=== PATIENT | female | born 1935 | race Caucasian/White ===

== ENCOUNTER 2016-08-04 16:57 | Inpatient (IN) | payer MEDICARE ==
[~2016-08-04] VITALS: Ht 162.6 cm; Wt 107.5 kg
[~2016-08-04 16:57] MED LIST: CYCL5TAB PO; NF-ESOM40C PO; OMEP20CA12 PO; ONDAN4ODT SL; PRED20TA PO; SULF1TAB38 PO; omeprazole
--- NOTE | 2016-08-04 17:11 | ED Lower Extremity ---
General Stated Complaint: FALL Source: patient, EMS History of Present Illness Time seen by provider: 17:10 Initial Comments To ER per EMS from [employer] [facility] with reports of a fall and right hip pain. No other injuries. She was unable to ambulate afterwards. Severe pain in the right hip. Fentanyl and Zofran given and round. Last meal was at 330 p.m. and was a [employer] hamburger. Onset: just prior to arrival Severity: moderate Pain/Injury Location: right hip Method of Injury: fell Modifying Factors: Worse With Movement Allergies and Home Medications Allergies Coded Allergies: Penicillins (Verified Allergy, Unknown, 08/06/12) codeine (Unverified Allergy, Unknown, 12/16/11) Home Medications Cyclobenzaprine Hcl 5 Mg Tablet, 1 EACH PO Q8HR PRN for SPASMS, #15 Ref 0 Prescribed by: NOEMY MAJOR on 09/22/14 0226 Omeprazole 20 Mg Capsule.dr, 1 CAP PO DAILY, #30 (Reported) Ondansetron Hcl 4 Mg Tab, 4 MG SL Q4H, #10 Prescribed by: BRAYAN RUVALCABA on 08/07/12 0034 Prednisone 20 Mg Tablet, 40 MG PO DAILY, #10 Prescribed by: NOEMY MAJOR on 09/22/14 0226 Sulfamethoxazole/Trimethoprim 1 Tab Tablet, 1 TAB PO BID, #14 (Reported) Constitutional: see HPI EENTM: see HPI Respiratory: no symptoms reported Cardiovascular: no symptoms reported Genitourinary: no symptoms reported Musculoskeletal: see HPI Skin: no symptoms reported Past Ncynfav-Zqeeqb-Gzbbkw Hx Immunizations Up To Date Tetanus Booster (TDap): Unknown Date of Pneumonia Vaccine: Jan 14, 2007 Surgeries HX Surgeries: Yes Surgeries: Orthopedic Respiratory Hx Respiratory Disorders: No Cardiovascular Hx Cardiac Disorders: Yes Cardiac Disorders: Hypertension Neurological Hx Neurological Disorders: Yes (History of head trauma) Reproductive System Hx Reproductive Disorders: No Sexually Transmitted Disease: No Genitourinary Hx Genitourinary Disorders: Yes (incontinence) Gastrointestinal Hx Gastrointestinal Disorders: Yes Gastrointestinal Disorders: Diverticulosis, Hiatal Hernia Musculoskeletal Hx Musculoskeletal Disorders: Yes (ARTHRITIS) Endocrine Hx Endocrine Disorders: No HEENT HX ENT Disorders: No Cancer Hx Cancer: No Psychosocial Hx Psychiatric Problems: No Blood Transfusions Hx Blood Disorders: No Adverse Reaction to a Blood Tr: No Family Medical History Significant Family History: No Pertinent Family Hx Physical Exam Vital Signs Vital Sign - Last 12Hours 08/04/16 17:00 Temp 98.9 Pulse 82 Resp 20 B/P (MAP) 137/67 Pulse Ox 98 O2 Delivery Room Air Capillary Refill : General Appearance: WD/WN, no apparent distress HEENT: PERRL/EOMI, normal ENT inspection Neck: non-tender, full range of motion Respiratory: no respiratory distress, no accessory muscle use Gastrointestinal: normal bowel sounds, non tender, soft Hips: right hip limited range of motion, right hip pain, right hip soft tissue tenderness Legs: bilateral leg non-tender, bilateral leg normal inspection, bilateral leg normal range of motion Knees: bilateral knee non-tender, bilateral knee normal inspection, bilateral knee normal range of motion Ankles: bilateral ankle non-tender, bilateral ankle normal inspection, bilateral ankle normal range of motion Feet: bilateral foot non-tender, bilateral foot normal inspection, bilateral foot normal range of motion Neurologic/Psychiatric: alert, normal mood/affect, oriented x 3 Skin: normal color, warm/dry Comments +2 posterior tibial pulse on the right Progress/Results/Core Measures Results/Orders Lab Results Laboratory Tests Test 08/04/16 17:00 Range/Units White Blood Count 8.6 4.3-11.0 10^3/uL Red Blood Count 4.05 L 4.35-5.85 10^6/uL Hemoglobin 12.1 11.5-16.0 G/DL Hematocrit 38 35-52 % Mean Corpuscular Volume 93 80-99 FL Mean Corpuscular Hemoglobin 30 25-34 PG Mean Corpuscular Hemoglobin Concent 32 32-36 G/DL Red Cell Distribution Width 13.3 10.0-14.5 % Platelet Count 210 130-400 10^3/uL Mean Platelet Volume 10.4 7.4-10.4 FL Neutrophils (%) (Auto) 55 42-75 % Lymphocytes (%) (Auto) 34 12-44 % Monocytes (%) (Auto) 8 0-12 % Eosinophils (%) (Auto) 3 0-10 % Basophils (%) (Auto) 0 0-10 % Neutrophils # (Auto) 4.7 1.8-7.8 X 10^3 Lymphocytes # (Auto) 2.9 1.0-4.0 X 10^3 Monocytes # (Auto) 0.7 0.0-1.0 X 10^3 Eosinophils # (Auto) 0.3 0.0-0.3 10^3/uL Basophils # (Auto) 0.0 0.0-0.1 10^3/uL Sodium Level 136 135-145 MMOL/L Potassium Level 4.1 3.6-5.0 MMOL/L Chloride Level 102 98-107 MMOL/L Carbon Dioxide Level 26 21-32 MMOL/L Anion Gap 8 5-14 MMOL/L Blood Urea Nitrogen 23 H 7-18 MG/DL Creatinine 1.11 0.60-1.30 MG/DL Estimat Glomerular Filtration Rate 48 BUN/Creatinine Ratio 21 Glucose Level 157 H 70-105 MG/DL Calcium Level 9.1 8.5-10.1 MG/DL Total Bilirubin 0.4 0.1-1.0 MG/DL Aspartate Amino Transf (AST/SGOT) 24 5-34 U/L Alanine Aminotransferase (ALT/SGPT) 20 0-55 U/L Alkaline Phosphatase 63 40-136 U/L Total Protein 6.7 6.4-8.2 G/DL Albumin 3.8 3.2-4.5 G/DL My Orders Orders - DRAKE KRAMER APRN Saline Lock/Iv-Start (08/04/16 17:07) Cbc With Automated Diff (08/04/16 17:07) Comprehensive Metabolic Panel (08/04/16 17:07) Ua Culture If Indicated (08/04/16 17:07) Chest 1 View, Ap/Pa Only (08/04/16 17:07) Hip, Right, 2 Views (08/04/16 17:07) Pelvis (08/04/16 17:07) Fentanyl Injection (Sublimaze Injection (08/04/16 17:15) Ondansetron Injection (Zofran Injectio (08/04/16 17:15) Rogers Cath Insertion (08/04/16 17:07) Diphenhydramine Injection (Benadryl Inje (08/04/16 17:45) Medications Given in ED Current Medications Medications Dose Ordered Sig/Cooper Route Start Time Stop Time Status Last Admin Dose Admin Diphenhydramine HCl 25 mg ONCE ONCE IVP 08/04/16 17:45 08/04/16 17:46 DC 08/04/16 17:38 25 MG Fentanyl Citrate 50 mcg ONCE ONCE IVP 08/04/16 17:15 08/04/16 17:16 DC 08/04/16 17:13 50 MCG Ondansetron HCl 4 mg ONCE ONCE IVP 08/04/16 17:15 08/04/16 17:16 DC 08/04/16 17:13 4 MG Vital Signs/I&O Vital Sign - Last 12Hours 08/04/16 17:00 Temp 98.9 Pulse 82 Resp 20 B/P (MAP) 137/67 Pulse Ox 98 O2 Delivery Room Air Departure Communication Time/Spoke to Admitting Phy: 17:[address] Smith who is on-call for orthopedics. We will admit to him , consult medicine. Tentative plan for intramedullary nailing tomorrow at 3 p.m. Time/Spoke to Consulting Physi: 17:53 Communication/Consulting Notify Dr. Dailey of consult. Impression Impression: Primary Impression: Intertrochanteric fracture of right hip Disposition: ADMITTED INPATIENT Condition: Stable Decision to Admit Reason: Admit from ER (General) Decision to Admit/Date: August 04, 2016 Time/Decision to Admit Time: 17:53 Departure-Patient Inst. Referrals: UNKNOWN (PCP/Family) Primary Care Physician DRAKE KRAMER APRN August 04, 2016 17:11
[2016-08-04 17:15] LABS: BASOPHILS % (AUTO) 0 % (0-10); EOSINOPHILS # (AUTO) 0.3 10^3/uL (0.0-0.3); EOSINOPHILS % (AUTO) 3 % (0-10); LYMPHOCYTES # (AUTO) 2.9 X 10^3 (1.0-4.0); LYMPHOCYTES % (AUTO) 34 % (12-44); MEAN CORPUSCULAR HEMOGLOBIN 30 PG (25-34); MEAN CORPUSCULAR HGB CONC 32 G/DL (32-36); MEAN CORPUSCULAR VOLUME 93 FL (80-99); MEAN PLATELET VOLUME 10.4 FL (7.4-10.4); MONOCYTES # (AUTO) 0.7 X 10^3 (0.0-1.0); MONOCYTES % (AUTO) 8 % (0-12); NEUTROPHILS # (AUTO) 4.7 X 10^3 (1.8-7.8); NEUTROPHILS % (AUTO) 55 % (42-75); PLATELET COUNT 210 10^3/uL (130-400); RED BLOOD COUNT 4.05 10^6/uL (4.35-5.85); RED CELL DISTRIBUTION WIDTH 13.3 % (10.0-14.5); WHITE BLOOD COUNT 8.6 10^3/uL (4.3-11.0)
[2016-08-04] MEDS ORDERED: ONDANSETRON 4 MG/2 ML (SDV) Z0FRAN IVP ONE (17:15)
[2016-08-04] MEDS ORDERED: fentaNYL INJECTION 100 MCG/2 ML AMP IVP ONE (17:15)
[2016-08-04 17:36] LABS: ALBUMIN 3.8 G/DL (3.2-4.5); BILIRUBIN,TOTAL 0.4 MG/DL (0.1-1.0); CALCIUM 9.1 MG/DL (8.5-10.1); CREATININE SERUM 1.11 MG/DL (0.60-1.30); POTASSIUM 4.1 MMOL/L (3.6-5.0); TOTAL PROTEIN 6.7 G/DL (6.4-8.2)
[2016-08-04] MEDS ORDERED: diphenhydrAMINE 50 MG/ML INJ (BENADRYL) IVP ONE (17:45)
--- NOTE | 2016-08-04 17:52 | Diagnostic Imaging Report ---
CLINICAL INDICATION: Patient states she tripped and fell and has right hip pain. EXAMINATION: Portable chest x-ray AP view. COMPARISONS: None. FINDINGS: Lungs/pleura: Lungs are clear. There is no pneumothorax. There is no pleural effusion. Mediastinum: Unremarkable. Pulmonary vasculature: Unremarkable. Heart: Unremarkable. Bones/extrathoracic soft tissue: There are moderately hypertrophic spurs throughout the visualized thoracic spine. There are hypertrophic spurs involving the glenohumeral joint and acromioclavicular joints bilaterally. IMPRESSION: There is no radiographic evidence of acute cardiopulmonary process. Dictated by: Dictated on workstation # [id number]
--- NOTE | 2016-08-04 17:56 | Diagnostic Imaging Report ---
CLINICAL INDICATION: Patient fell. Patient has right hip pain. EXAM: X-ray of the right hip, AP and cross-table lateral views. COMPARISON: X-ray of the pelvis dated 08/04/2016. FINDINGS: There is a nondisplaced intertrochanteric fracture of the proximal right femur. This fracture is seen on the comparison pelvis x-ray. There are moderately hypertrophic spurs involving the right acetabulum. There is enthesopathy of the right iliac crest and proximal right greater trochanter. Remainder of the right hip shows no other significant abnormality. IMPRESSION: 1: There is a nondisplaced intertrochanteric fracture of the proximal right femur. 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 Dictated by: Dictated on workstation # [id number]
--- NOTE | 2016-08-04 17:57 | Diagnostic Imaging Report ---
CLINICAL INDICATION: Patient states she tripped and fell. Patient has right hip pain. EXAM: X-ray of the pelvis, AP view. COMPARISON: None. FINDINGS: There is a nondisplaced intertrochanteric fracture of the proximal right femur. There is no other fracture or dislocation seen. There is moderately hypertrophic spurs involving both acetabulum and enthesopathy of both greater trochanters and iliac crests. There is spurring of the symphysis pubis region. There is hypertrophic spurring in the lower lumbar spine. IMPRESSION: 1: There is a nondisplaced intertrochanteric fracture of the proximal right femur. 2: There is degenerative disease of both hips, pelvis, and lower lumbar spine. Report given to Dr. Rosa at 5:56 p.m. 08/04/2016/ray Dictated by: Dictated on workstation # [id number]
[2016-08-04] MEDS ORDERED: PROCHLORPERAZINE 10 MG/2ML INJ (COMPAZINE) IV ONE (18:00)
[2016-08-04] MEDS ORDERED: HYDROmorphone (DILAUDID) 2 MG/ML VIAL IVP PRN (18:45)
[2016-08-04] MEDS ORDERED: fentaNYL PCA 300 MCG/30 ML VIAL IV PRN (20:00)
[2016-08-04] MEDS ORDERED: CATHETER FLUSH 10 ML SYR IV PRN (20:00)
[2016-08-04] MEDS ORDERED: METOCLOPRAMIDE INJ 10 MG/2 ML (REGLAN) IV PRN (20:00)
[2016-08-04] MEDS ORDERED: NALOXONE 0.4 MG/ML 1 ML (NARCAN) VIAL IV PRN (20:00)
[2016-08-04] MEDS ORDERED: diphenhydrAMINE 50 MG/ML INJ (BENADRYL) IV PRN (20:00)
[2016-08-04] MEDS: NS IV 1000 ML 1,000 ML IV SCH (20:04)
[2016-08-04] MEDS: ONDANSETRON 4 MG/2 ML (SDV) Z0FRAN IV PRN (20:45)
--- NOTE | 2016-08-04 21:03 | Diagnostic Imaging Report ---
Clinical indication: Patient with right hip fracture. Exam: X-ray of the right hip without IV contrast. Sagittal and coronal reformatted images were created. Comparison: None. Findings: There is a comminuted intertrochanteric fracture of the proximal right femur. There are smaller fracture fragments seen posteriorly and medially. There is no other fracture or dislocation seen on this exam. The right femoral acetabular joint space is intact. There is hypertrophic spurs of the right acetabular rim. There is enthesopathy of the right greater trochanter. There is spurring of the symphysis pubis region. The remainder of this exam shows no significant abnormality. Impression: 1: There is a predominantly nondisplaced, comminuted, intertrochanteric fracture of the proximal right femur. There is a small fracture fragment seen posteriorly and medially. The right femoral acetabular joint space is intact and not dislocated. 2: Degenerative disease of the right hip. Dictated by: Dictated on workstation # [id number]
[2016-08-05] VITALS: BP 114/55
[2016-08-05 03:10] VITALS: BP 123/58
[2016-08-05] MEDS: NS IV 1000 ML 1,000 ML IV SCH ×3 (06:07→23:00)
[2016-08-05 08:11] VITALS: BP 113/56
[2016-08-05] MEDS: SENNA W/DOCUSATE (SENOKOT S) TABLET PO SCH (08:16)
[2016-08-05] MEDS ORDERED: METOCLOPRAMIDE INJ 10 MG/2 ML (REGLAN) IV PRN (09:00)
[2016-08-05] MEDS ORDERED: GABA-486 PO (09:12)
[2016-08-05] MEDS ORDERED: METO-270 PO (09:12)
[2016-08-05] MEDS ORDERED: OMG1KC PO (09:16)
[2016-08-05] MEDS ORDERED: CALC-654 PO (09:16)
[2016-08-05] MEDS ORDERED: CYAN500T2 PO (09:16)
[2016-08-05] MEDS ORDERED: VIT1CAPS9 PO (09:16)
[2016-08-05] MEDS ORDERED: VITA1CAP PO (09:16)
[2016-08-05] MEDS ORDERED: PRAS50CA2 PO (09:16)
[2016-08-05] MEDS ORDERED: DIME50TA83 PO (09:18)
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
[2016-08-05 11:56] VITALS: BP 118/63
[2016-08-05] MEDS ORDERED: FAMOTIDINE 20MG/2ML IV (PEPCID) IV ONE (13:00)
[2016-08-05] MEDS ORDERED: ONDANSETRON 4 MG/2 ML (SDV) Z0FRAN IV ONE (13:00)
[2016-08-05] MEDS ORDERED: LACTATED RINGERS 1,000 ML IV PRN (14:00)
[2016-08-05] MEDS ORDERED: BUP/EPI 0.5% 1:200,000 (SENSORCAINE) 30 ML VIAL ONE (14:04)
[2016-08-05] MEDS ORDERED: BUPIVACAINE 0.5% 30 ML (SENSORCAINE) VIAL ONE (14:06)
[2016-08-05] MEDS ORDERED: MIDAZOLAM 2 MG/2 ML (VERSED) VIAL ONE (14:29)
[2016-08-05] MEDS ORDERED: ONDANSETRON 4 MG/2 ML (SDV) Z0FRAN ONE (14:29)
[2016-08-05] MEDS ORDERED: LIDOCAINE PF 2% 10 ML (XYLOCAINE) AMP ONE (14:29)
[2016-08-05] MEDS ORDERED: DEXAMETHASONE PF 10 MG/ML (DECADRON) VIAL ONE (14:29)
[2016-08-05] MEDS ORDERED: fentaNYL INJECTION 100 MCG/2 ML AMP ONE ×2 (14:29→15:39)
[2016-08-05] MEDS ORDERED: LACTATED RINGERS 1,000 ML IV ONE (14:29)
[2016-08-05] MEDS ORDERED: proPOfol 200 MG/20 ML (DIPRIVAN) VIAL IV ONE (14:29)
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
[2016-08-05] MEDS ORDERED: CLINDAMYCIN 600 MG/4ML (CLEOCIN) VIAL ONE (15:20)
[2016-08-05] MEDS ORDERED: SEVOFLURANE (ULTANE) 15 ML INHAL SOLN ONE (16:22)
[2016-08-05] MEDS ORDERED: morphine INJ 10 MG/ML 1ML (SYR OR VIAL) IVP PRN (16:30)
[2016-08-05] MEDS ORDERED: CLINDAMYCIN INJECTION 600 MG in NS (IVPB) 50 ML IV ONE (16:30)
[2016-08-05] MEDS ORDERED: ONDANSETRON 4 MG/2 ML (SDV) Z0FRAN IVP PRN (16:30)
[2016-08-05] MEDS ORDERED: ACETAMINOPHEN 325 MG TABLET/CAPLET (TYLENOL) PO PRN (16:30)
--- NOTE | 2016-08-05 16:54 | Diagnostic Imaging Report ---
Indication: Followup right hip fracture. Discussion: Fluoroscopic support was provided during intraoperative open reduction internal fixation of the proximal right femur with an intramedullary quita and dynamic compression screw. Please see the operative report for full detail. Fluoroscopy time: 56 seconds. Impression: 1. Intraoperative ORIF of the proximal right femur. Dictated by: Dictated on workstation # [id number]
[2016-08-05 17:20] VITALS: BP 132/61
[2016-08-05] MEDS: ONDANSETRON 4 MG/2 ML (SDV) Z0FRAN IV PRN (17:34)
[2016-08-05] MEDS ORDERED: CLINDAMYCIN INJECTION 600 MG in NS (IVPB) 50 ML IV SCH (18:00)
[2016-08-05] MEDS: CLINDAMYCIN INJECTION 600 MG in NS (IVPB) 50 ML IV SCH (21:01)
[2016-08-06] VITALS: BP 137/63
[2016-08-06] MEDS: CLINDAMYCIN INJECTION 600 MG in NS (IVPB) 50 ML IV SCH ×2 (03:04→09:17)
[2016-08-06 03:30] VITALS: BP 114/64
[2016-08-06 05:03] LABS: MEAN PLATELET VOLUME 10.3 FL (7.4-10.4); RED BLOOD COUNT 3.42 10^6/uL (4.35-5.85); RED CELL DISTRIBUTION WIDTH 13.2 % (10.0-14.5)
[2016-08-06 05:20] LABS: ALANINE AMINOTRANSFERASE 84 U/L (0-55); ALBUMIN 3.2 G/DL (3.2-4.5); ANION GAP 9 MMOL/L (5-14); ASPARTATE AMINO TRANSFERASE 65 U/L (5-34); BILIRUBIN,TOTAL 0.7 MG/DL (0.1-1.0); BLOOD UREA NITROGEN 15 MG/DL (7-18); BUN/CREATININE RATIO 19; CALCIUM 8.3 MG/DL (8.5-10.1); CARBON DIOXIDE 22 MMOL/L (21-32); CHLORIDE 106 MMOL/L (98-107); CREATININE SERUM 0.81 MG/DL (0.60-1.30); GFR ESTIMATED > 60; GLUCOSE 133 MG/DL (70-105); SODIUM 137 MMOL/L (135-145); TOTAL PROTEIN 5.5 G/DL (6.4-8.2)
--- NOTE | 2016-08-06 05:57 | Progress Note (SOAP) ---
Subjective Subjective/Events-last exam POD #1, s/p right hip TFN placement VSS, afebrile No complaints Review of Systems General: No Chills Pulmonary: No Cough Musculoskeletal: leg pain, No: back pain Neurological: No: Numbness, Weakness Objective Exam Vital Signs Date Time Temp Pulse Resp B/P (MAP) Pulse Ox O2 Delivery O2 Flow Rate FiO2 08/06/16 03:30 99.0 84 14 114/64 95 08/06/16 02:14 93 08/06/16 00:00 98.8 89 16 137/63 95 08/05/16 22:15 92 08/05/16 21:00 18 08/05/16 21:00 98 08/05/16 17:58 16 08/05/16 17:56 94 08/05/16 17:21 95.3 08/05/16 17:20 85 132/61 93 08/05/16 11:56 98.7 74 20 118/63 96 08/05/16 08:11 97.7 76 20 113/56 96 08/05/16 06:03 16 I & O 08/06/16 07:00 Intake Total 1054 ml Output Total 2150 ml Balance -1096 ml Capillary Refill : Less Than 3 SecondsLess Than 3 Seconds General Appearance: No Apparent Distress Respiratory: No Accessory Muscle Use, No Respiratory Distress Gastrointestinal: soft Extremity: Non Tender, No Calf Tenderness Neurologic/Psychiatric: Alert, Oriented x3, No Motor/Sensory Deficits, Normal Mood/Affect, 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 and 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 II-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 Norm as Tested Skin: Other (Dressing CDI) Lymphatic: No Adenopathy Results Lab Laboratory Tests 08/06/16 04:40: White Blood Count 10.0, Red Blood Count 3.42L, Hemoglobin 10.3L, Hematocrit 32L , Mean Corpuscular Volume 93, Mean Corpuscular Hemoglobin 30, Mean Corpuscular Hemoglobin Concent 32, Red Cell Distribution Width 13.2, Platelet Count 148, Mean Platelet Volume 10.3, Sodium Level 137, Potassium Level 4.0, Chloride Level 106, Carbon Dioxide Level 22, Anion Gap 9, Blood Urea Nitrogen 15, Creatinine 0.81, Estimat Glomerular Filtration Rate > 60, BUN/Creatinine Ratio 19, Glucose Level 133H, Calcium Level 8.3L, Total Bilirubin 0.7, Aspartate Amino Transf (AST/SGOT) 65H, Alanine Aminotransferase (ALT/SGPT) 84H, Alkaline Phosphatase 55, Total Protein 5.5L, Albumin 3.2 Assessment/Plan Assessment/Plan Assess & Plan/Chief Complaint Right intertrochanteric femur fracture, s/p Right hip TFN placemen Discharge planning Up with PT today Clinical Quality Measures DVT/VTE Risk/Contraindication: Risk Factor Score Per Nursin RFS Level Per Nursing on Admit: 4+=Very High NELDA DANIELS August 06, 2016 05:57
[2016-08-06 08:00] VITALS: BP 132/72
--- NOTE | 2016-08-06 08:35 | Diagnostic Imaging Report ---
2 views of the right femur. INDICATION: Posterior fixation of right intertrochanteric fracture. FINDINGS: Right intertrochanteric fracture is again seen with internal fixation. Intramedullary hardware is seen in good alignment. There is right knee replacement prosthesis seen. Mild degenerative changes in the right hip seen. IMPRESSION: Internal fixation of right intertrochanteric fracture in good alignment. Dictated by: Dictated on workstation # [id number]
--- NOTE | 2016-08-06 08:48 | Progress Note-Hospitalist ---
Subjective HPI/CC On Admission Mrs. Feliciano is a 80-year-old white female reports she caught her foot getting off of tall chair at a local [employer]. This resulted in a fall on her right hip and knee for which she has suffered a comminuted displaced closed intertrochanteric fracture. She does report a history of intermittent vertigo but denied any vertiginous symptoms prior to her fall. Because of her obesity and likely deconditioning her primary care provider had recommended she use a walker but she has resisted this. She reports no previous history of fracture. She had been in her usual state of health, denying chest pain shortness of breath or recent palpitations. As part of her past medical history for palpitations in 2014 she underwent exercise stress testing and echocardiography will which revealed no evidence for ischemia and ejection fraction 60 percent with no abnormalities being noted on echocardiogram. Date Seen 08/06/16 Subjective/Events-last exam she reports stiffness and soreness is much in her right knee is her right hip. She does not feel that she can bend the knee. She has been down for x-rays this morning which are pending. Her friend who is with her states they were told she was in atrial fibrillation in the emergency room. In review of her rhythm strips on her chart and her EKG there is no evidence for atrial fibrillation we'll need to confirm this. She sees a campus ambassador and is not on any anticoagulation therapy. She does take metoprolol at bedtime for palpitations which this reduces. She has no bleeding problems states she has a hiatal hernia but no GI bleed history or ulceration history. Objective Exam Vital Signs Vital Sign - Last 12Hours 08/04/16 17:00 Temp 98.9 Pulse 82 Resp 20 B/P (MAP) 137/67 Pulse Ox 98 O2 Delivery Room Air Capillary Refill : Less Than 3 SecondsLess Than 3 Seconds General Appearance: No Apparent Distress Respiratory: Chest Non Tender, Lungs Clear, Normal Breath Sounds, No Accessory Muscle Use, No Respiratory Distress Cardiovascular: Regular Rate, Rhythm, No Edema, No Gallop, No JVD, No Murmur, Normal Peripheral Pulses Gastrointestinal: Normal Bowel Sounds, No Organomegaly, No Pulsatile Mass, Non Tender, Soft Extremity: Other (there is no obvious swelling about the right knee there is a small area of purpura posteriorly more likely do to hip surgery as it was not present yesterday prior to surgery. Extremities reveal no cyanosis clubbing or edema distally with 2+ dorsalis pedis pulses bilaterally.) Results/Procedures Lab Laboratory Tests 08/06/16 04:40 Assessment/Plan Assessment and Plan Assess & Plan/Chief Complaint 1. Status post ORIF right hip postop day 1 patient doing as well as can be expected. 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 Discussed the importance of participating with physical therapy after getting clearance on her x-rays from orthopedics. Medications have been reviewed and home meds reconciled. We'll be holding her multiple vitamins for now. 2. Questionable paroxysmal atrial fibrillation I can find no record of definitively documented atrial fibrillation currently we will continue to monitor. At bedtime metoprolol has been initiated. Continue current DVT prophylaxis unchanged. EMILIANO LAGUERRE MD August 06, 2016 08:48
[2016-08-06] MEDS: GABAPENTIN 100 MG (NEURONTIN) CAP PO SCH ×2 (09:18→20:48)
[2016-08-06] MEDS: SENNA W/DOCUSATE (SENOKOT S) TABLET PO SCH (09:18)
[2016-08-06] MEDS: PANTOPRAZOLE 20 MG TABLET (PROTONIX) PO SCH (09:18)
[2016-08-06] MEDS: ASPIRIN E.C. 325 MG (ECOTRIN) TABLET PO SCH (09:18)
--- NOTE | 2016-08-06 09:18 | OPERATIVE REPORT ---
DATE OF SERVICE: 08/05/2016 SURGEON: Minh Smith DO AIR TRAFFIC SUPERVISOR: DARNELL Elder This is a medically necessary procedure. Assistance is necessary for retraction of vital neurovascular structures. Without an clerical dentist assistant, the procedure would not be possible. PREOPERATIVE DIAGNOSIS: Right intertrochanteric hip fracture. POSTOPERATIVE DIAGNOSIS: Right intertrochanteric hip fracture. PROCEDURE PERFORMED: Placement of intramedullary nail of the right hip. COMPLICATIONS: None. SPECIMENS SENT: None. ANESTHESIA: General endotracheal tube by anesthesia. HISTORY OF PRESENT ILLNESS: The patient is a very pleasant 80-year-old female who got up to stand and fell and sustained a hip fracture. X-rays demonstrated intertrochanteric hip fracture. CT scan did not demonstrate any provocation of this stable, 2-part hip fracture. She understood the risks and benefits of surgery but did wish to proceed in order to mobilize her. OPERATION: The patient was identified by name on wrist band in the preoperative holding. Her operative site was signed, consent was signed. SCDs were placed. Antibiotics were started. She was taken to the operating room theatre, placed under general endotracheal anesthesia and transferred to the operating room table in the supine position. The unaffected left lower extremity was abducted and externally rotated. The affected right lower extremity was placed in traction and internally rotated. Once we had a good reduction of the fracture, she was prepped and draped in the usual sterile fashion. A formal timeout was conducted. An incision was made over the lateral aspect of her greater trochanter. We gained accessed to the intermedullary canal utilizing a K-wire. We then burred the outer cortex, passed a ball-tip reaming quita through the proximal and distal fragment and down to just above the knee. I then measured the appropriate length quita. I then reamed for this quita, reamed to a size 11 nail. To do so, I reamed to a size 12 to accommodate a size 11 nail. Once the reaming was complete, I obtained the nail and I passed it through the proximal and distal fragment. I maintained a good reduction as I seated the nail. I then removed the ball-tip reaming quita and I drilled and placed my helical blade. I had good reduction of the fracture. Final AP and lateral x-ray demonstrated appropriate position of the hardware. Because the fracture was stable, I opted not to place a distal lock. I thoroughly irrigated both of the wounds and I closed them in my usual layered fashion utilizing 0 Vicryl, followed by 2-0 Vicryl, followed by puneet for skin. I applied dressings and took the patient in supine position to the PACU, where she awoke without incident. She tolerated this procedure very well. PLAN: To have the patient out of bed on postop day #1, weightbearing as tolerated. We will place her on Lovenox for DVT prophylaxis. She will keep her wound clean and dry and change her dressings daily. Job ID: [id number] DocumentID: [id number] Dictated Date: 08/05/2016 16:16:23 Operations/Dispatch Date: 08/06/2016 09:16:57 Dictated By: MINH SMITH DO
[2016-08-06] MEDS: fentaNYL INJECTION 100 MCG/2 ML AMP IVP PRN (10:10)
--- NOTE | 2016-08-06 10:32 | Physical Therapy Evaluation ---
PT Evaluation-General Medical Diagnosis Admission Date August 04, 2016 at 17:50 Medical Diagnosis: right hip fx Onset Date: August 04, 2016 Therapy Diagnosis Therapy Diagnosis: impaired mobility, strength, endurance, pain Height/Weight Height (Feet): 5 Height (Inches): 4.00 Weight (Pounds): 237 Weight (Ounces): 0.0 Precautions Precautions/Isolations: Fall Prevention, Standard Precautions Weight Bear Status Weight Bearing Restriction: Weight Bearing/Tolerated Location Restriction: R LE Referral Physician: Jesus Saldaña Reason for Referral: Evaluation/Treatment Medical History Pertinent Medical History: Atrial Fib, Arthritis, HTN Additional Medical History hx of head trauma, UTI-chronic, incontinence, diverticulosis, cataracts, macular degeneration, surg (eye surg, gallbladder, hysterectomy, orthopedic) Current History 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 and got a comminuted displaced closed intertrochanteric fx Reviewed History: Yes Social History Home: Single Level Current Living Status: Alone Entry Into Home: Level Entry Prior/Core FIM Prior Level of Function Functional [place] Measure 0=Not Assessed/NA 4=Minimal Assistance 1=Total Assistance 5=Supervision or Setup 2=Maximal Assistance 6=Modified [place] 3=Moderate Assistance 7=Complete [place] Bed Mobility: 7 Transfers (B,C,W/C) (FIM): 7 Gait: 7 patient states she did use a single point cane occasionally, she has extreme dizziness and nausea due to a neurological disorder PT Evaluation-Current Subjective Patient in bed pre tx, agrees to PT, states she has 7/10 pain, nurse gives her pain meds. Pt/Family Goals to walk again Objective Patient Orientation: Normal For Age ROM/Strength ROM Lower Extremities WNL left leg but limited on the right Strenght Lower Extremities NT due to recent surgery Neuromuscular (Tone, Coordination, Reflexes) impaired coordination on the right side (leg) Sensory Vision: Wears Glasses Hearing: Functional Sensation Right Lower Extremit: Intact Sensation Left Lower Extremity: Intact Transfers Functional [place] Measure 0=Not Assessed/NA 4=Minimal Assistance 1=Total Assistance 5=Supervision or Setup 2=Maximal Assistance 6=Modified [place] 3=Moderate Assistance 7=Complete [place] Transfers (B, C, W/C) (FIM): 1 Scootin Rollin Supine to/from Sit: 1 Sit to/from Stand: 4 bed t/f WC(FIM only if WC use): 4 stand pivot transfer with min assist, needs cues for foot placement, very, very slow Gait Gait (FIM): 1 Distance: 3' Gait Level of Assist: 4 Gait Persons Needed: 1 Gait Assistive Device: FWW Comments/Gait Description Patient cannot advance her right leg, she uses her toes to crawl it forward Balance Sitting Static: Fair Sitting Dynamic: Fair Standing Static: Fair Standing Dynamic: Fair Treatment LAQ right side x10, AP right side x20 Assessment/Needs Patient has impaired functional mobility, strength, endurance, pain post right hip fx. 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 Goals Group Home Goals PT Group Home Goals Time Frame: August 13, 2016 Transfers (B,C,W/C) (FIM): 3 Gait (FIM): 1 Distance: 15' Gait Level of Assist: 4 Gait Assistive Device: FWW PT Plan Problem List Problem List: Activity Tolerance, Functional Strength, Safety, Balance, Gait, Transfer, Bed Mobility, ROM Treatment/Plan Treatment Plan: Continue Plan of Care Treatment Plan: Bed Mobility, Education, Functional Activity [place], Functional Strength, Gait, Safety, Therapeutic Exercise, Transfers Treatment Duration: August 13, 2016 # of days/week 5-6 Visits Per Week: 10-11 Minutes/Day (M-F): 15-30 Minutes/Day (Sat/Gray): 15-30 Pt/Family Agrees w/Plan: Yes Safety Risks/Education Patient Education: Gait Training, Transfer Techniques, Correct Positioning, Safety Issues Teaching Recipient: Patient Teaching Methods: Demonstration, Discussion Response to Teaching: Reinforcement Needed Discharge Recommendations Plan Patient will perform bed mobility and transfer training, balance and endurance training, functional strengthening, stair training, gait training, and education , to improve functional mobility and independence at home. Therapy D/C Recommendations: Acute Rehab, Home w/ Family Support, Fdc (TCU/NH) Time/GCodes Time In: 1000 Time Out: 1025 Total Billed Treatment Time: 25 Total Billed Treatment 1 visit RICHL 15' FA 10' ARETHA CARRERA PT August 06, 2016 10:32
[2016-08-06 12:00] VITALS: BP 112/68
--- NOTE | 2016-08-06 12:33 | Anesthesia-General Post-Op ---
General Patient Condition Mental Status/LOC: Same as Preop Cardiovascular: Satisfactory Nausea/Vomiting: Absent Respiratory: Satisfactory Pain: Controlled Complications: Absent Post Op Complications Complications None Follow Up Care/Instructions Patient Instructions None needed. Anesthesia/Patient Condition Patient Condition Patient is doing well, no complaints, stable vital signs, no apparent adverse anesthesia problems. No complications reported per nursing. MAGDY OTOOLE CRNA August 06, 2016 12:33
--- NOTE | 2016-08-06 13:22 | Occupational Therapy Eval ---
OT Evaluation-General/PLF Medical Diagnosis Admission Date August 04, 2016 at 17:50 Medical Diagnosis: right hip fx Onset Date: August 04, 2016 Therapy Diagnosis Therapy Diagnosis: impaired self care skills Height/Weight Height (Feet): 5 Height (Inches): 4.00 Weight (Pounds): 237 Weight (Ounces): 0.0 Precautions Precautions/Isolations: Fall Prevention, Standard Precautions Safety Interventions: None Weight Bear Status Weight Bearing Restriction: Weight Bearing/Tolerated Location Restriction: R LE Referral Physician: Jesus Saldaña Medical History Pertinent Medical History: Atrial Fib, Arthritis, HTN Additional Medical History incontinence, UTI-chronic, diverticulosis, cataract, macular degeneration, history of head trauma Current History Pt fell and sustained a right hip fracture. Now s/p TFN Reviewed History: Yes Social History Home: Multilevel (stays on main level) Current Living Status: Alone Entry Into Home: Level Entry ADL-Prior Level of Function ADL PLOF Comments Pt reports being independent with self care and mobility. Occasionally used a cane for mobility, but states her physician had been trying to get her to use a walker DME/Equipment: Grab Bars, Sock Aid, Tall Toilet, Tub/Shower OT Current Status Subjective Pt sitting in chair, states she has been sitting up for a while and the chair is quite uncomfortable. Requests to return to bed. Mental Status/Objective Patient Orientation: Person, Place, Situation Current Glasses/Contacts: Yes (reading) Hearing Aids: No Dentures/Partials: No Hand Dominance: Right Upper Extremity ROM Grossly WFL ADL-Treatment ADL-Current Pt participated in UE assessment while seated. Education provided regarding role of OT and plan of care. Pt states understanding and is in agreement. Education provided regarding use of adaptive equipment. Pt states she has a sock aid and director inbound sales at home. Pt requests to return to bed. Pt has difficulty scooting in chair and requires increased time for task. Sit to stand with moderate assistance and cues for hand placement. Pt transferred to EOB with minimal assistance and increased time using FWW. Pt unable to advance right LE. Sit to supine with assist for bilateral LE and some assist to manage trunk. Assist required to reposition in bed. Pt requires increased time for all mobility tasks. Pt in bed with needs met and sister present after session. Functional [place] Measure 0=Not Assessed/NA 4=Minimal Assistance 1=Total Assistance 5=Supervision or Setup 2=Maximal Assistance 6=Modified [place] 3=Moderate Assistance 7=Complete IndependenceIRFPAI Quality Coding Scale 6 Independent with activity with or without an assistive device 5 Patient requires set up or clean up by helper. Patient completes activity by themselves 4 Supervision or touching assist (CGA). [place] provide cues , steadying assist 3 The helper provides less than half the effort to complete the activity 2 The helper provides more than half the effort to complete the activity 1 Dependent. The helper does all the effort to complete an activity 7 Patient refused to complete or attempt activity 9 The patient did not perform the activity before the current illness or injury 88 Not attempted due to Medical conditions or safety concerns Education OT Patient Education: Rehab process Teaching Recipient: Patient Teaching Methods: Discussion Response to Teaching: Verbalize Understanding OT Short Term Goals Short Term Goals 1=Demonstrate adherence to instructed precautions during ADL tasks. 2=Patient will verbalize/demonstrate understanding of assistive devices/ modifications for ADL. 3=Patient will improve strength/tolerance for activity to enable patient to perform ADL's. OT Fpc Goals Toy Assembler Goals Time Frame: August 20, 2016 Eating (FIM): 6 Grooming(FIM): 6 Upper Body Dressing(FIM): 5 Lower Body Dressing(FIM): 4 Toilet/Commode Transfer(FIM): 5 Additional Goals: 1-Demonstrate ADL Tasks, 2-Verbalize Understanding, 3- ImproveStrength/Indy 1=Demonstrate adherence to instructed precautions during ADL tasks. 2=Patient will verbalize/demonstrate understanding of assistive devices/ modifications for ADL. 3=Patient will improve strength/tolerance for activity to enable patient to perform ADL's. OT Education/Plan Problem List/Assessment Assessment: Decreased Activ Tolerance, Decreased UE Strength, Dependent Transfers, Impaired Self-Care Skills Pt s/p fall with right hip fracture with surgical intervention. Pt demonstrates decreased mobility, strength, activity tolerance, and ADL functioning. Pt to benefit from skilled OT intervention for ADL training, transfers, strengthening , adaptive equipment training, and home safety education to maximize level of function and allow safe discharge. Discharge Recommendations Plan/Recommendations: Continue POC Treatment Plan/Plan of Care Treatment,Training & Education: Yes Patient would benefit from OT for education, treatment and training to promote independence in ADL's, mobility, safety and/or upper extremity function for ADL' s. Plan of Care: ADL Retraining, Functional Mobility, UE Funct Exercise/Act Treatment Duration: August 20, 2016 # of days/week 5 Visits Per Week: 5 Agreement: Yes Rehab Potential: Fair Time/GCodes Start Time: 11:37 Stop Time: 12:05 Total Time Billed (hr/min): 28 Billed Treatment Time 1 visit, EVL(13minutes), FA(15minutes) REMY HURD OT August 06, 2016 13:22
--- NOTE | 2016-08-06 14:29 | Physical Therapy Daily Note ---
PT Daily Note-Current Subjective Patient in bed pre tx, she states she just got back to bed and does not want to get out of bed right now. She agrees to bed exercises. States she has pain of 7/10. Appearance Patient in bed post tx with nurse call, phone, tray, family in the room. Mental Status Patient Orientation: Normal For Age Transfers Functional [place] Measure 0=Not Assessed/NA 4=Minimal Assistance 1=Total Assistance 5=Supervision or Setup 2=Maximal Assistance 6=Modified [place] 3=Moderate Assistance 7=Complete IndependenceIRFPAI Quality Coding Scale 6 Independent with activity with or without an assistive device 5 Patient requires set up or clean up by helper. Patient completes activity by themselves 4 Supervision or touching assist (CGA). [place] provide cues , steadying assist 3 The helper provides less than half the effort to complete the activity 2 The helper provides more than half the effort to complete the activity 1 Dependent. The helper does all the effort to complete an activity 7 Patient refused to complete or attempt activity 9 The patient did not perform the activity before the current illness or injury 88 Not attempted due to Medical conditions or safety concerns Exercises Supine Ex: Ankle pumps, Quad Set, Glut sets, Heel Slides, Short Arc Quads, Straight leg raise, Hip abd/add Supine Reps: 10 Treatments hip protocol right leg Assessment Current Status: Poor Progress no change in mobility PT Mill Laborer Goals Jail Goals PT Mill Laborer Goals Time Frame: August 13, 2016 Transfers (B,C,W/C) (FIM): 3 Gait (FIM): 1 Distance: 15' Gait Level of Assist: 4 Gait Assistive Device: FWW PT Plan Problem List Problem List: Activity Tolerance, Functional Strength, Safety, Balance, Gait, Transfer, Bed Mobility, ROM Treatment/Plan Treatment Plan: Continue Plan of Care Treatment Plan: Bed Mobility, Education, Functional Activity Indy, Functional Strength, Gait, Safety, Therapeutic Exercise, Transfers Treatment Duration: August 13, 2016 Visits Per Week: 10-11 Minutes/Day (M-F): 15-30 Minutes/Day (Sat/Gray): 15-30 Safety Risks/Education Patient Education: Correct Positioning, Safety Issues Teaching Recipient: Patient Teaching Methods: Demonstration, Discussion Response to Teaching: Reinforcement Needed Time/GCodes Time In: 1350 Time Out: 1400 Total Billed Treatment Time: 10 Total Billed Treatment 1 visit EX 10' ARETHA CARRERA PT August 06, 2016 14:29
[2016-08-06 16:00] VITALS: BP 118/54
[2016-08-06 20:00] VITALS: BP 134/60
[2016-08-06] MEDS: ONDANSETRON 4 MG/2 ML (SDV) Z0FRAN IV PRN (20:47)
[2016-08-07] VITALS: BP 112/54
[2016-08-07 03:30] VITALS: BP 116/58
--- NOTE | 2016-08-07 05:33 | Progress Note (SOAP) ---
Subjective Subjective/Events-last exam POD #2 S/P right hip TFN placement Patient complains of right hip pain Femur x-rays reveal stable hardware, with normal alignment Review of Systems General: No Chills HEENT: No Head Aches Gastrointestinal: No: Abdominal Pain, Vomiting Musculoskeletal: leg pain, No: foot pain Objective Exam Vital Signs Date Time Temp Pulse Resp B/P (MAP) Pulse Ox O2 Delivery O2 Flow Rate FiO2 08/07/16 03:30 98.3 81 20 116/58 96 08/07/16 00:00 98.4 80 20 112/54 95 08/06/16 20:00 99.7 87 18 134/60 97 08/06/16 16:00 98.7 92 18 118/54 93 08/06/16 12:00 98.3 76 16 112/68 97 08/06/16 08:00 99.6 95 16 132/72 93 08/06/16 07:00 16 08/06/16 06:09 96 I & O 08/07/16 07:00 Intake Total 1150 ml Output Total 825 ml Balance 325 ml Capillary Refill : Less Than 3 SecondsLess Than 3 Seconds General Appearance: No Apparent Distress, WD/WN Respiratory: No Respiratory Distress, Accessory Muscle Use Cardiovascular: Normal Peripheral Pulses Gastrointestinal: soft Extremity: No Calf Tenderness, Other (Pain with right hip flexion, normal strength with knee and plantar flexion and extension ) Neurologic/Psychiatric: Alert, Oriented x3, No Motor/Sensory Deficits, Normal Mood/Affect, 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 Incision CDI, no erythema, fluctuance , or induration) Results Lab Laboratory Tests 08/07/16 04:07: Hemoglobin 10.3L, Hematocrit 32L Microbiology 08/05/16 MRSA Screen - Final, Complete MRSA not isolated Assessment/Plan Assessment/Plan Assess & Plan/Chief Complaint Right intertrochanteric femur fracture, s/p Right hip TFN placemen Ambulate Patient has failed to ambulate with PT, and nursing staff states that she provides no assistance when getting out of bed. I discussed my concerns with the patient that if she continues to lie in bed that she will continue to decondition and increase her odds of developing a comorbid condition. Clinical Quality Measures DVT/VTE Risk/Contraindication: Risk Factor Score Per Nursin RFS Level Per Nursing on Admit: 4+=Very High NELDA DANIELS August 07, 2016 05:33
[2016-08-07 07:53] VITALS: BP 97/50
[2016-08-07] MEDS: PANTOPRAZOLE 20 MG TABLET (PROTONIX) PO SCH (08:25)
[2016-08-07 08:26] VITALS: BP 124/56
[2016-08-07] MEDS: GABAPENTIN 100 MG (NEURONTIN) CAP PO SCH (08:26)
[2016-08-07] MEDS: ASPIRIN E.C. 325 MG (ECOTRIN) TABLET PO SCH (08:26)
--- NOTE | 2016-08-07 08:48 | Progress Note-Hospitalist ---
Subjective HPI/CC On Admission Mrs. Feliciano is a 80-year-old white female reports she caught her foot getting off of tall chair at a local [employer] store. This resulted in a fall on her right hip and knee for which she has suffered a comminuted displaced closed intertrochanteric fracture. She does report a history of intermittent vertigo but denied any vertiginous symptoms prior to her fall. Because of her obesity and likely deconditioning her primary care provider had recommended she use a walker but she has resisted this. She reports no previous history of fracture. She had been in her usual state of health, denying chest pain shortness of breath or recent palpitations. As part of her past medical history for palpitations in 2014 she underwent exercise stress testing and echocardiography will which revealed no evidence for ischemia and ejection fraction 60 percent with no abnormalities being noted on echocardiogram. Date Seen 08/07/16 Subjective/Events-last exam patient reports right hip pain is been limiting her physical therapy. With max assistance they've gotten her to the chair and back several times she is not ambulated otherwise. She reports no chest pain or shortness of breath. Objective Exam Vital Signs Vital Sign - Last 12Hours 08/04/16 17:00 Temp 98.9 Pulse 82 Resp 20 B/P (MAP) 137/67 Pulse Ox 98 O2 Delivery Room Air Capillary Refill : Less Than 3 SecondsLess Than 3 Seconds General Appearance: No Apparent Distress (patient was sleeping upon my arrival with no evidence for respiratory distress no snoring and no evidence for obstructed breathing pattern supine and flat in bed.) Respiratory: Chest Non Tender, Lungs Clear, Normal Breath Sounds, No Accessory Muscle Use, No Respiratory Distress Cardiovascular: Regular Rate, Rhythm, No Edema, No Gallop, No JVD, No Murmur Gastrointestinal: Normal Bowel Sounds, No Organomegaly, No Pulsatile Mass, Non Tender, Soft Extremity: No Pedal Edema Results/Procedures Lab Laboratory Tests 08/07/16 04:07 Assessment/Plan Assessment and Plan Assess & Plan/Chief Complaint 1. Status post ORIF right hip postop day 3 patient doing as well as can be expected. Patient is being evaluated for acute rehabilitative services. We discussed the fact that if she did not qualify her only other option would be jail placement with physical occupational therapy until patient is independent and safe to go home. She has very negative feelings about correction placement and states she would go home before doing that. We pointed out that she is requiring maximal assistance with transfers and ambulation with significant increased risk for fall and readmission being highly likely not mention a new fracture or repeat fracture of her right hip despite hardware. We will initiate scheduled Tylenol and the patient was encouraged to work with physical therapy and that she would have to be willing to work for 3 hours and 24 hour period split up throughout the day to qualify for acute rehabilitation service. 2. Questionable paroxysmal atrial fibrillation I can find no record of definitively documented atrial fibrillation currently we will continue to monitor. At bedtime metoprolol has been initiated. Continue current DVT prophylaxis unchanged. EMILAINO LAGUERRE MD August 07, 2016 08:48
[2016-08-07] MEDS: SENNA W/DOCUSATE (SENOKOT S) TABLET PO SCH (09:01)
[2016-08-07] MEDS: fentaNYL INJECTION 100 MCG/2 ML AMP IVP PRN (10:08)
--- NOTE | 2016-08-07 10:29 | Physical Therapy Daily Note ---
PT Daily Note-Current Subjective Patient agrees to PT. Pain Numeric Pain Scale: 5-Moderate Pain Location: Right Location Body Site: Hip Pain Description: Acute Mental Status Patient Orientation: Person, Time, Situation Transfers Functional [place] Measure 0=Not Assessed/NA 4=Minimal Assistance 1=Total Assistance 5=Supervision or Setup 2=Maximal Assistance 6=Modified [place] 3=Moderate Assistance 7=Complete IndependenceIRFPAI Quality Coding Scale 6 Independent with activity with or without an assistive device 5 Patient requires set up or clean up by helper. Patient completes activity by themselves 4 Supervision or touching assist (CGA). [place] provide cues , steadying assist 3 The helper provides less than half the effort to complete the activity 2 The helper provides more than half the effort to complete the activity 1 Dependent. The helper does all the effort to complete an activity 7 Patient refused to complete or attempt activity 9 The patient did not perform the activity before the current illness or injury 88 Not attempted due to Medical conditions or safety concerns Transfers (B, C, W/C) (FIM): 4 Scootin Sit to/from Stand: 4 CGA with gait belt use for safety Weight Bearing Weight Bearing Restriction: Weight Bearing/Tolerated Location Restriction: R LE Gait Training Gait (FIM): 2 Distance (FIM): 3=897-01 ft Distance: 100' Gait Level of Assist: 4 Gait Persons Needed: 1 Gait Assistive Device: FWW very slow, slightly antalgic; multiple standing recovery periods secondary to SOA Exercises Seated Therapy Exercises: Ankle pumps, Long arc quads, Hip flexion Seated Reps: 15 (x 2 sets) Assessment Patient requires time to complete all functional tasks due to pain and slight confusion. PT to increase activity as tolerated by patient. PT Service Unit Operator Goals Half-Way Goals PT Half-Way Goals Time Frame: August 13, 2016 Transfers (B,C,W/C) (FIM): 3 Gait (FIM): 1 Distance: 15' Gait Level of Assist: 4 Gait Assistive Device: FWW PT Plan Treatment/Plan Treatment Plan: Continue Plan of Care Treatment Plan: Bed Mobility, Education, Functional Activity [place], Functional Strength, Gait, Safety, Therapeutic Exercise, Transfers Treatment Duration: August 13, 2016 Visits Per Week: 10-11 Minutes/Day (M-F): 15-30 Minutes/Day (Sat/Gray): 15-30 Time/GCodes Time In: 930 Time Out: 953 Total Billed Treatment Time: 23 Total Billed Treatment 1 visit GT 15 min EX 8 min CHIRAG TRIVEDI PT August 07, 2016 10:29
--- NOTE | 2016-08-07 11:57 | Occupational Ther Daily Note ---
OT Current Status-Daily Note Subjective Pt sitting in chair, states she is uncomfortable and would like to return to bed. Pt agrees to therapy. Mental Status/Objective Functional [place] Measure 0=Not Assessed/NA 4=Minimal Assistance 1=Total Assistance 5=Supervision or Setup 2=Maximal Assistance 6=Modified [place] 3=Moderate Assistance 7=Complete [place] ADL-Treatment Education provided regarding use of adaptive equipment for LE ADLs. Pt states she uses sock aid at home. Pt doffed socks with SBA and increased time using communications executive. Pt demonstrated ability to don socks with increased time using sock aid. Pt donned underwear using communications executive to start underwear over feet. Stood with minimal assistance to pull underwear up over hips. Doff underwear with minimal assistance using communications executive. Pt sit to stand and transfer to EOB with minimal assistance using FWW for balance. Sit to supine with assist for bilateral LE. Pt requires increased time for functional tasks. Pt in bed with needs met and sister present after session. OT Short Term Goals Short Term Goals 1=Demonstrate adherence to instructed precautions during ADL tasks. 2=Patient will verbalize/demonstrate understanding of assistive devices/ modifications for ADL. 3=Patient will improve strength/tolerance for activity to enable patient to perform ADL's. OT Senior Research Consultant Goals Group Home Goals Time Frame: August 20, 2016 Eating (FIM): 6 Grooming(FIM): 6 Upper Body Dressing(FIM): 5 Lower Body Dressing(FIM): 4 Toilet/Commode Transfer(FIM): 5 Additional Goals: 1-Demonstrate ADL Tasks, 2-Verbalize Understanding, 3- ImproveStrength/Indy 1=Demonstrate adherence to instructed precautions during ADL tasks. 2=Patient will verbalize/demonstrate understanding of assistive devices/ modifications for ADL. 3=Patient will improve strength/tolerance for activity to enable patient to perform ADL's. OT Education/Plan Problem List/Assessment Pt s/p fall with right hip fracture with surgical intervention. Pt demonstrates decreased mobility, strength, activity tolerance, and ADL functioning. Pt to benefit from skilled OT intervention for ADL training, transfers, strengthening , adaptive equipment training, and home safety education to maximize level of function and allow safe discharge. Discharge Recommendations Plan/Recommendations: Continue POC Treatment Plan/Plan of Care Patient would benefit from OT for education, treatment and training to promote independence in ADL's, mobility, safety and/or upper extremity function for ADL' s. Plan of Care: ADL Retraining, Functional Mobility, UE Funct Exercise/Act Treatment Duration: August 20, 2016 Visits Per Week: 5 Agreement: Yes Rehab Potential: Fair Time/GCodes Start Time: 10:47 Stop Time: 11:11 Total Time Billed (hr/min): 24 Billed Treatment Time 1 visit, ADLx2(24minutes) REMY HURD OT August 07, 2016 11:57
[2016-08-07] MEDS ORDERED: ACETAMINOPHEN 500 MG TAB (TYLENOL) PO SCH (14:00)
== END 2016-08-07 11:40 | DRG 481 ==
LOC: EDUNIT# 16:57 → ER 16:58 → 4TH 17:50
PROVIDERS: ADMIT Orthopaedic Surgery; ATTEND Internal Medicine
PROC: 0QS606Z Reposition Right Upper Femur with Intramedullary Internal Fixation Device, Open Approach (ICD-10-PCS; principal; 2016-08-05 15:05)
DX: M80.051A Age-related osteoporosis with current pathological fracture, right femur, initial encounter for fracture (principal); E66.9 Obesity, unspecified; Z68.41 Body mass index [BMI] 40.0-44.9, adult; I10 Essential (primary) hypertension; I48.0 Paroxysmal atrial fibrillation; H35.30 Unspecified macular degeneration; R32 Unspecified urinary incontinence; J30.2 Other seasonal allergic rhinitis; K44.9 Diaphragmatic hernia without obstruction or gangrene; K57.90 Diverticulosis of intestine, part unspecified, without perforation or abscess without bleeding; M19.91 Primary osteoarthritis, unspecified site; Z96.651 Presence of right artificial knee joint; W07.XXXA Fall from chair, initial encounter; Y92.29 Other specified public building as the place of occurrence of the external cause
CPT/HCPCS: 36415; 71010; 72170; 73502; 73552; 73700; 80053; 85014; 85018; 85025; 85027; 87081; 93005; 94664; 94760; 96374; 96375

== ENCOUNTER 2016-08-07 11:39 | Inpatient (IN) | payer MEDICARE ==
[~2016-08-07] VITALS: Ht 162.6 cm; Wt 103.4 kg
[~2016-08-07 11:39] MED LIST changes: +CALC-654 PO; +CYAN500T2 PO; +DIME50TA83 PO; +GABA-486 PO; +METO-270 PO; +OMG1KC PO; +PRAS50CA2 PO; +VIT1CAPS9 PO; +VITA1CAP PO
[2016-08-07 11:45] VITALS: BP 130/76
[2016-08-07] MEDS ORDERED: ONDANSETRON 4 MG/2 ML (SDV) Z0FRAN IV PRN (12:30)
--- NOTE | 2016-08-07 12:31 | Physical Therapy Evaluation ---
PT Evaluation-General Medical Diagnosis Admission Date August 07, 2016 at 11:41 Medical Diagnosis: R Hip intertrochanteric fx Onset Date: August 04, 2016 Therapy Diagnosis Therapy Diagnosis: Weakness; abn gait Height/Weight Height (Feet): 5 Height (Inches): 4.00 Weight (Pounds): 237 Weight (Ounces): 0.0 Precautions Precautions/Isolations: Standard Precautions Weight Bear Status Weight Bearing Restriction: Weight Bearing/Tolerated Location Restriction: R LE Referral Physician: Rajeev Reason for Referral: Evaluation/Treatment Medical History Pertinent Medical History: Atrial Fib, Arthritis, HTN Additional Medical History Chronic UTI; obesity Current History Pt was at the cell 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 Fell and sustained right hip fracture. S/P repair with TFN. Reviewed History: Yes Social History Home: Multilevel (but stays on the main level) Current Living Status: Alone Entry Into Home: Level Entry Prior/Core FIM Prior Level of Function Functional [place] Measure 0=Not Assessed/NA 4=Minimal Assistance 1=Total Assistance 5=Supervision or Setup 2=Maximal Assistance 6=Modified [place] 3=Moderate Assistance 7=Complete [place] Bed Mobility: 7 Transfers (B,C,W/C) (FIM): 7 Gait: 6 (occas use of cane or FWW) Pt still drives; does own grocery shopping. PT Evaluation-Current Subjective Pt agreeable to PT. Asking how long she will be here. Pain Numeric Pain Scale: 10-Worst Possible Pain Location: Right Location Body Site: Hip Pain Description: Ache (sore) Comment: Pt has had pain meds; pt visits throughout and no facial grimace with pain Pt/Family Goals Return home to care for herself alone. Objective Patient Orientation: Person, Place, Time, Situation Problem Solving: Good ROM/Strength ROM Lower Extremities WFL Strenght Lower Extremities Left LE is grossly 4/5 throughout Right LE is 2/5 quads and hams; hip flexion 2/5; DF 4/5 Integumentary/Posture Integumentary intact Bowel Incontinence: No Bladder Incontinence: No Posture Normal and symmetrical Neuromuscular (Tone, Coordination, Reflexes) No noted functional deficit Sensory Vision: Functional Hearing: Functional Hand Dominance: Right Sensation Right Lower Extremit: Intact Sensation Left Lower Extremity: Intact Transfers Functional [place] Measure 0=Not Assessed/NA 4=Minimal Assistance 1=Total Assistance 5=Supervision or Setup 2=Maximal Assistance 6=Modified [place] 3=Moderate Assistance 7=Complete IndependenceIRFPAI Quality Coding Scale 6 Independent with activity with or without an assistive device 5 Patient requires set up or clean up by helper. Patient completes activity by themselves 4 Supervision or touching assist (CGA). [place] provide cues , steadying assist 3 The helper provides less than half the effort to complete the activity 2 The helper provides more than half the effort to complete the activity 1 Dependent. The helper does all the effort to complete an activity 7 Patient refused to complete or attempt activity 9 The patient did not perform the activity before the current illness or injury 88 Not attempted due to Medical conditions or safety concerns Transfers (B, C, W/C) (FIM): 2 Scootin Rollin Roll Left to Right (QC): 3 Supine to/from Sit: 2 (max assist sup to sit EOB; mod assist to lie down) Sit to/from Stand: 4 (Min assist and skilled cues to sequence.) Sit to Lying (QC): 3 Lying to Sitting/Side of Bed(Q: 2 Sit to Stand (QC): 4 Chair/[id number] Xfer(QC): 4 Car Transfer (QC): 88 Worked on bed mobility and sequencing to perform task. Skilled cues for hand and foot placement. Gait Does the Patient Walk?: Yes Mode of Locomotion: Walk Anticipated Mode of Locomotion: Walk Gait (FIM): 2 Distance (FIM): 8=372-51 ft Walk 10 feet (QC): 4 Walk 50 ft with 2 Turns(QC): 4 Walk 150 ft (QC): 88 Walking 10ft/uneven surface-QC: 88 Gait Level of Assist: 4 Gait Assistive Device: FWW Comments/Gait Description Tends to scoot right foot but able to pickle pumper with skilled cues; pt is slow with gait with decreased step length but able to step through with each step. heavy reliance on FWW at this time. Some difficutly with turning due to decreased foot clearance. Wheelchair Training Does the Pt Use a Wheelchair?: No Stairs Stairs (FIM): 0 (unable to lift foot high enough to attempt and too weak to attempt; unsafe) 1 Step (curb) (QC): 88 4 Steps (QC): 88 12 Steps (QC): 88 If not tested on admit;explain weakness and inability to lift foot to step up Balance Sitting Static: Good Sitting Dynamic: Fair Standing Static: Fair Standing Dynamic: Fair Picking up an Object (QC): 88 Treatment Gait training with fWW with skilled cues for foot clearance on the right. Sit to from stand transfers with skilled cues for sequencing and hand placement. Worked on functional bed mobility for scooting in bed to relieve pressure and for comfort. Assessment/Needs Post fall with right hip fracture that has been repaired. WBAT. Pt presents with limited functional activity tolerance and mobility with strength and balance deficits noted. She will benefit from skilled PT intervention to work on functional mobility and strength to allow her to return home as before. Personl factors: lives alone, obesity. Exam: LE weakness, decreased balance, impaired transfers; impaired gait. Presentation evolving: due to recent surgery. Eval of moderate complexity. Rehab Potential: Good PT Short Term Goals Short Term Goals Time Frame: August 14, 2016 Transfers (B,C,W/C) (FIM): 4 Gait (FIM): 4 Distance (FIM): 3=150 ft Gait Assistive Device: FWW PT Shop Fitter Goals Fpc Goals PT Shop Fitter Goals Time Frame: Aug 21, 2016 Transfers (B,C,W/C) (FIM): 6 Sit to Lying (QC): 6 Lying-Sitting on Side/Bed(QC): 6 Sit to Stand (QC): 6 Roll Left to Right (QC): 6 Chair/[id number] Xfer(QC): 6 Car Transfer (QC): 5 Does the Patient Walk: Yes Gait (FIM): 6 Gait distance (FIM): 3=150 ft Walk 10 feet (QC): 6 Walk 10ft-Uneven Surface(QC): 6 Walk 50ft with 2 Turns (QC): 6 Walk 150 ft (QC): 6 Gait Assistive Device: FWW Does the Pt use WC or Scooter?: No Stairs (FIM): 2 # of Steps: 4 1 Step (curb) (QC): 4 4 Steps (QC): 4 12 Steps (QC): 88 Picking up an Object (QC): 4 Goals set to allow pt to return home alone and care for herself. PT Plan Problem List Problem List: Activity Tolerance, Functional Strength, Safety, Balance, Gait, Transfer, Bed Mobility Treatment/Plan Treatment Plan: Continue Plan of Care Treatment Plan: Bed Mobility, Education, Functional Activity [place], Functional Strength, Group Therapy, Gait, Safety, Therapeutic Exercise, Transfers Treatment Duration: Aug 21, 2016 # of days/week 5-6 Visits Per Week: 10-15 Pt/Family Agrees w/Plan: Yes Safety Risks/Education Patient Education: Gait Training, Transfer Techniques, Safety Issues Teaching Recipient: Patient Teaching Methods: Demonstration, Discussion Response to Teaching: Reinforcement Needed Discharge Recommendations Therapy D/C Recommendations: Physical Therapy Home Care Time/GCodes Time In: 1145 Time Out: 1230 Total Billed Treatment Time: 45 Total Billed Treatment visit EVM 15 GT 15 FA 15 ESTRADA BOWEN PT August 07, 2016 12:31
[2016-08-07] MEDS: ACETAMINOPHEN 500 MG TAB (TYLENOL) PO SCH ×2 (14:28→21:00)
--- NOTE | 2016-08-07 14:29 | Occupational Therapy Eval ---
OT Evaluation-General/PLF Medical Diagnosis Admission Date August 07, 2016 at 11:41 Medical Diagnosis: R Hip intertrochanteric fx Onset Date: August 04, 2016 Therapy Diagnosis Therapy Diagnosis: impaired self care skills Height/Weight Height (Feet): 5 Height (Inches): 4.00 Weight (Pounds): 237 Weight (Ounces): 0.0 Precautions Precautions/Isolations: Standard Precautions Weight Bear Status Weight Bearing Restriction: Weight Bearing/Tolerated Location Restriction: R LE Referral Physician: Rajeev Medical History Pertinent Medical History: Atrial Fib, Arthritis, HTN, Macular Degenertion Additional Medical History incontinence, UTI-chronic, diverticulosis, cataract, history of head trauma. Current History Pt had fall with right hip fracture. Now s/p TFN Reviewed History: Yes Social History Home: Multilevel (but stays on the main level) Current Living Status: Alone Entry Into Home: Level Entry ADL-Prior Level of Function ADL PLOF Comments Pt reports being independent with self care and mobility. Occasionally uses cane for mobility. DME/Equipment: Grab Bars, Reachers, Sock Aid, Tall Toilet, Tub/Shower Drive Self: Yes OT Current Status Subjective Pt in bed, agrees to treatment. Pt reports 7/10 pain in right hip. Pt reports nausea at times during session, states this is normal for her at baseline. Mental Status/Objective Patient Orientation: Person, Place, Situation Current Glasses/Contacts: Yes (reading glasses) Hearing Aids: No Dentures/Partials: No Hand Dominance: Right Upper Extremity ROM Grossly WFL Upper Extremity Coordination Intact Upper Extremity Strength Grossly 4/5 ADL-Treatment ADL-Current Pt supine to sit with maximal assistance and skilled cues for technique. Increased time and assist to scoot to EOB. Pt participated in UE assessment while seated EOB. Sit to stand and transfer to w/c with minimal assistance using FWW. Sponge bath completed while seated. Shower not attempted at this time secondary to pt fatigue. Pt able to wash bilateral UE, chest, abdomen, and bilateral upper legs. Assist for other areas. Pt donned hospital gown with set up. Gait to restroom with FWW and minimal assistance, increased time. Pt completed grooming tasks standing at sink. Pt washed face, brushed teeth, and combed hair with SBA for balance. Occasional rest breaks taken during ADL tasks.Transfer to [facility] [place] toilet with minimal assistance. Max assist required for toileting. Pt returned to EOB with minimal assistance and slow pace. Sit to supine with moderate assistance for bilateral LE. Functional [place] Measure 0=Not Assessed/NA 4=Minimal Assistance 1=Total Assistance 5=Supervision or Setup 2=Maximal Assistance 6=Modified [place] 3=Moderate Assistance 7=Complete IndependenceIRFPAI Quality Coding Scale 6 Independent with activity with or without an assistive device 5 Patient requires set up or clean up by helper. Patient completes activity by themselves 4 Supervision or touching assist (CGA). [place] provide cues , steadying assist 3 The helper provides less than half the effort to complete the activity 2 The helper provides more than half the effort to complete the activity 1 Dependent. The helper does all the effort to complete an activity 7 Patient refused to complete or attempt activity 9 The patient did not perform the activity before the current illness or injury 88 Not attempted due to Medical conditions or safety concerns Grooming (FIM): 5 Oral Hygiene (QC): 4 Bathing (FIM): 3 Shower/Bathe Self (QC): 3 Toileting (FIM): 2 Toileting Hygiene (QC): 2 Toilet/Commode Transfer (FIM): 4 Toilet Transfer (QC): 3 Other Treatments Pt completed bilateral UE exercises to increase strength needed for ADLs and transfers. Pt performed shoulder flexion, abduction, biceps curls, and triceps extension exercises x20 reps with moderate resistance (Red) theraband. Rest breaks between exercises. Pt states she lifts light weights at home and enjoys the exercise. Pt in bed with needs met, PT and sister present after session. Education OT Patient Education: Rehab process Teaching Recipient: Patient Teaching Methods: Discussion Response to Teaching: Verbalize Understanding OT Short Term Goals Short Term Goals Time Frame: Aug 21, 2016 Bathing(FIM): 5 Upper Body Dressing(FIM): 5 Lower Body Dressing(FIM): 5 Toileting(FIM): 5 Toilet/Commode Transfer(FIM): 5 Shower Transfer(FIM): 5 Additional Short Term Goals: 1-Demonstrate ADL Tasks, 2-Verbalize Understanding , 3-ImproveStrength/Indy 1=Demonstrate adherence to instructed precautions during ADL tasks. 2=Patient will verbalize/demonstrate understanding of assistive devices/ modifications for ADL. 3=Patient will improve strength/tolerance for activity to enable patient to perform ADL's. OT Process Line Operator Goals Process Line Operator Goals Time Frame: Aug 28, 2016 Eating (FIM): 6 Eating (QC): 6 Groomin Oral Hygiene (QC): 6 Bathing(FIM): 5 Shower/Bathe Self (QC): 5 Upper Body Dressing(FIM): 6 Upper Body Dressing (QC): 6 Lower Body Dressing(FIM): 6 Lower Body Dressing (QC): 6 On/Off Footwear (QC): 6 Toileting(FIM): 6 Toileting Hygiene (QC): 6 Toilet/Commode Transfer(FIM): 6 Toilet/Commode Transfer (QC): 6 Shower Transfer(FIM): 5 Additional Goals: 1-Demonstrate ADL Tasks, 2-Verbalize Understanding, 3- ImproveStrength/Indy 1=Demonstrate adherence to instructed precautions during ADL tasks. 2=Patient will verbalize/demonstrate understanding of assistive devices/ modifications for ADL. 3=Patient will improve strength/tolerance for activity to enable patient to perform ADL's. Goals established to improve level of independence and allow safe discharge home. OT Education/Plan Problem List/Assessment Assessment: Decreased UE Strength, Dependent Transfers, Impaired I ADL's, Impaired Self-Care Skills Pt demonstrates decreased ADL functioning, mobility, strength, and activity tolerance. Pt to benefit from skilled OT intervention for ADL training, transfers, strengthening, adaptive equipment training, and home safety education to maximize level of function and allow safe return home. Discharge Recommendations Plan/Recommendations: Continue POC Treatment Plan/Plan of Care Treatment,Training & Education: Yes Patient would benefit from OT for education, treatment and training to promote independence in ADL's, mobility, safety and/or upper extremity function for ADL' s. Plan of Care: ADL Retraining, Functional Mobility, Group Exercise/Act as Ind, UE Funct Exercise/Act Treatment Duration: Aug 28, 2016 # of days/week 5-6 Visits Per Week: 10-12 Minutes/Day (M-F): 60-90 Minutes/Day (Sat/Gray): PRN Agreement: Yes Rehab Potential: Good Time/GCodes Start Time: 12:45 Stop Time: 14:15 Total Time Billed (hr/min): 90 Billed Treatment Time 1 visit, EVL(15minutes), ADLx4(55minutes), EX(20minutes) REMY HURD OT August 07, 2016 14:29
--- NOTE | 2016-08-07 15:07 | Physical Therapy Daily Note ---
PT Daily Note-Current Subjective Patient reports she is very fatigued, however, agrees to PT. Pain Numeric Pain Scale: 8 Location: Right Location Body Site: Hip Pain Description: Ache, Acute, Sharp Mental Status Patient Orientation: Normal For Age Transfers Functional [place] Measure 0=Not Assessed/NA 4=Minimal Assistance 1=Total Assistance 5=Supervision or Setup 2=Maximal Assistance 6=Modified [place] 3=Moderate Assistance 7=Complete IndependenceIRFPAI Quality Coding Scale 6 Independent with activity with or without an assistive device 5 Patient requires set up or clean up by helper. Patient completes activity by themselves 4 Supervision or touching assist (CGA). [place] provide cues , steadying assist 3 The helper provides less than half the effort to complete the activity 2 The helper provides more than half the effort to complete the activity 1 Dependent. The helper does all the effort to complete an activity 7 Patient refused to complete or attempt activity 9 The patient did not perform the activity before the current illness or injury 88 Not attempted due to Medical conditions or safety concerns Transfers (B, C, W/C) (FIM): 3 Scootin Rollin Roll Left to Right (QC): 4 Supine to/from Sit: 3 Sit to/from Stand: 5 Sit to Lying (QC): 3 Sit to Stand (QC): 5 Chair/Ypb-cl-Jktnd Xfer(QC): 4 Bed to/from Chair: 4 Weight Bearing Weight Bearing Restriction: Weight Bearing/Tolerated Location Restriction: R LE Gait Training Does the Patient Walk?: Yes Gait (FIM): 2 Distance (FIM): 5=078-87 ft Distance: 75' x 2 Walk 10 feet (QC): 5 Walk 50 ft with 2 Turns(QC): 5 Walk 150 ft (QC): 88 Gait Level of Assist: 5 Gait Persons Needed: 1 Gait Assistive Device: FWW very slow, antalgic gait sequence Exercises Supine Ex: Ankle pumps, Quad Set, Heel Slides Supine Reps: 15 Seated Therapy Exercises: Ankle pumps, Long arc quads Seated Reps: 15 Assessment Patient requires time to complete all functional tasks. Patient fatigues with minimal activity. PT to increase activity as tolerated by patient. PT Short Term Goals Short Term Goals Time Frame: August 14, 2016 Gait (FIM): 4 Distance (FIM): 3=150 ft Gait Assistive Device: FWW PT Nutrition Tech Goals Nutrition Tech Goals PT Nutrition Tech Goals Time Frame: Aug 21, 2016 Transfers (B,C,W/C) (FIM): 6 Sit to Lying (QC): 6 Lying-Sitting on Side/Bed(QC): 6 Sit to Stand (QC): 6 Rollin Roll Left to Right (QC): 6 Chair/Mrc-rs-Guqfa Xfer(QC): 6 Car Transfer (QC): 5 Does the Patient Walk: Yes Gait (FIM): 6 Gait distance (FIM): 3=150 ft Walk 10 feet (QC): 6 Walk 10ft-Uneven Surface(QC): 6 Walk 50ft with 2 Turns (QC): 6 Walk 150 ft (QC): 6 Gait Assistive Device: FWW Does the Pt use WC or Scooter?: No Stairs (FIM): 2 # of Steps: 4 1 Step (curb) (QC): 4 4 Steps (QC): 4 12 Steps (QC): 88 Picking up an Object (QC): 4 PT Plan Treatment/Plan Treatment Plan: Continue Plan of Care Treatment Plan: Bed Mobility, Education, Functional Activity Indy, Functional Strength, Group Therapy, Gait, Safety, Therapeutic Exercise, Transfers Treatment Duration: Aug 21, 2016 Visits Per Week: 10-15 Time/GCodes Time In: 1415 Time Out: 1500 Total Billed Treatment Time: 45 Total Billed Treatment 1 visit EX x 2 25 min GT 20 min CHIRAG TRIVEDI PT August 07, 2016 15:07
--- NOTE | 2016-08-07 15:43 | ST Cognitive Linguistic Eval ---
Speech Evaluation-General Medical Diagnosis R Hip intertrochanteric fx Onset Date: August 04, 2016 Therapy Diagnosis Therapy Diagnosis: Cognitive Linguistic Skills WFL Precautions Precautions/Isolations: Standard Precautions Referral Referring Physician: Dr. Jaya Boo Reason for Referral: Evaluation/Treatment Cognitive, Language, Speech Evaluation Medical History Pertinent Medical History: Atrial Fib, Arthritis, HTN, Macular Degenertion Reviewed History: Yes Social History Current Living Status: Alone Speech PLF-Current Status Prior Level of Function The patient denied challenges with speech, language, or cognition prior to admission. Subjective The patient was recently admitted to [facility] following a right hip fracture. The patient greeted the clinician appropriately and was agreeable to cognitive evaluation. Language Eval: Auditory Comprehends Simple Yes/No Ques: Functional Indent/Objects Multiple Keller: Functional Ident/Pics in Multiple Keller: Functional Follows 1-Step Commands: Functional Follows Complex Directions: Functional Follows General Conversations: Functional Language Eval: Verbal Language Completes Spontaneous Greeting: Functional Produces Auto, Serial Info: Functional Imitates Simple Words/Phrases: Functional Word Finding: Mild Requests Basic Needs: Functional States Basic Personal Info: Functional Expresses Complex Ideas: Functional Cognitive Patient Orientation The patient was oriented to self, location, month, day, and year. Objective Cognitive Domain Attention: WNL Memory: WNL Problem Solving: Functional Objective Impression The patient demonstrated cognitive linguistic skills grossly within normal limits and appropriate for completion of ADL's. Communication/Social Cognition Comprehension: 5 Expression: 6 Social Interaction: 6 Problem Solvin Memory: 5 Speech Patient Assess Expression of Ideas/Wants: Expression (4) Understanding [place] Content: Usually Understands (3) Brief Interview-Mental Status: Yes Repetition of Three Words: Three (3) Temporal Orientation: Year: Correct (3) Temporal Orientation: Month: Accurate within 5 days(2) Temporal Orientation: Day: Correct (1) Recall : Wear to say "Sock": Yes, no cue required (2) Recall : Color: Yes, no cue required (2) Recall : Bed: Yes, no cue required (2) Speech-Plan Treatment Plan Speech Therapy Treatment Plan: Discontinue ST Evaluation, only. Rehab Potential: Good Safety Risks/Education Teaching Recipient: Patient Teaching Methods: Discussion Response to Teaching: Verbalize Understanding Education Topics Provided: Plan, Results, Recommendations Time Speech Therapy Time In: 15:00 Speech Therapy Time Out: 15:15 Total Billed Time: 15 Billed Treatment Time 1, SPSNDDEVYN MORAN August 07, 2016 15:43
--- NOTE | 2016-08-07 18:27 | HISTORY AND PHYSICAL ---
DATE OF SERVICE: 08/07/2016 CHIEF COMPLAINT: Difficulty with walking. 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 She sustained a right intertrochanteric hip fracture and underwent placement of intramedullary nail of the right hip with Dr. Smith on 08/05/2016 after being admitted to [facility] the previous day.. The patient was followed by hospitalist service. The patient was begun on PT/OT, and found to be appropriate and referred to inpatient rehabilitation unit. The patient is followed by a neurologist on an outpatient basis for dizziness. She had a head injury as a child. She is obese and has had a total knee replacement in the past. She had been independent prior to this and living in [place], [place].Currently she is Mod assist for transfers and min assist for gait with WW.She is Modified Independent for feeding and setup for grooming .Mod assist for Upper body dressing and max assist for Lower body dressing.Max assist for toileting. PAST MEDICAL HISTORY: Closed head injury as a child with associated intermittent vertigo followed by neurologist on an outpatient basis, arthritis, obesity, postop nausea. She is currently utilizing tramadol for pain. PAST SURGICAL HISTORY: As per above, she has had lumbar spine surgery and total knee replacement. ALLERGIES: PENICILLIN, CODEINE. FAMILY HISTORY: Noncontributory. SOCIAL HISTORY: She is a . She is retired, had been independent and driving. REVIEW OF SYSTEMS: A 10-point review of systems significant for intermittent dizziness and nausea, chronic back pain. MEDICATIONS: 1. ASA 325 mg p.o. daily. 2. Protonix 5 mg p.o. daily. 3. Senokot S 1 tablet p.o. daily. 4. Toprol XL 25 mg p.o. daily. 5. Gabapentin 200 mg p.o. b.i.d. 6. Tylenol 1000 mg q. 6 hours p.r.n. mild pain and fever. 7. Reglan 10 mg IV q. 6 hours p.r.n. nausea or vomiting. 8. Zofran 4 mg IV q. 4 hours p.r.n. nausea or vomiting. 9. Tramadol 50 mg p.o. q. 4 hours p.r.n. moderate pain. PHYSICAL EXAMINATION: GENERAL: Significant for an obese female, lying in bed, in no acute distress. VITAL SIGNS: Within normal limits. She is afebrile. HEENT: The patient's speech is clear, grossly intact. No oral lesion is noted. NECK: Supple without mass. HEART: Regular rhythm. LUNGS: Clear. ABDOMEN: Soft, nontender. Bowel sounds present. EXTREMITIES: Trace edema right ankle, no calf tenderness. Incision site healing well right hip. MUSCULOSKELETAL: The patient has functional active range of motion to both upper extremities and left lower extremity. Right lower extremity limited at hip due to recent fall, fracture and repair. NEUROLOGIC: Sensation is grossly intact to touch. Functional strength both upper extremities and left lower extremity. Right lower extremity limited at hip and knee 2/5,ankle 4/5. Cognition grossly intact.Dynamic standing balance fair. IMPRESSION: 1. Ambulatory dysfunction secondary to fall which with resulting right intertrochanteric hip fracture status post IM nailing right hip on 08/05/[address] Luis puente at [facility]. Weightbearing as tolerated. 2. History of head injury as a child with intermittent dizziness, being followed by neurologist on an outpatient basis. 3. Postop nausea associated with above on Reglan and Zofran p.r.n. PLAN: The patient will have a comprehensive program of inpatient rehabilitation with goal of maximizing level of function of independence prior to discharge home with home health care. The patient will have PT/OT 90 minutes per day each discipline, 5 days a week for gait, strengthening and conditioning, balance, ADLs and any patient, family caregiver training as necessary and any Adaptive equipmemt training as necessary. ST to do cognitive assessment and treat as indicated. Rehabilitation nursing to assist with bowel, bladder, skin care, wound care, medication administration, pain management. consulting services associate to assist with discharge planning, community re-entry, Therapy with cardiac and fall precautions. Follow up with the hospitalist service and orthopedics as per the schedule, routine admission labs and SCDS for DVT prophylaxis. DIET: Regular. CODE STATUS: Full code. Job ID: [id number] DocumentID: [id number] Dictated Date: 08/07/2016 12:38:35 Rehabilitation Engineer Date: 08/07/2016 14:47:29 Dictated By: VÍCTOR RICHEY MD [facility]
[2016-08-07 18:35] VITALS: BP 144/72
--- NOTE | 2016-08-07 20:22 | PM&R Post Admission Assessment ---
Post Admission Physician Asses The preadmission screen agrees with the post admission assessment that the patient is a good candidate for inpatient rehabilitation. The patient will have a comprehensive program of inpatient rehabilitation with a goal of maximizing level of functional independence prior to discharge home with [facility]. The patient will have PT/OT ninety minutes per day, each discipline , five days a week for 2 weeks for gait, strengthening, conditioning, balance, ADLs, any patient/family/caregiver training necessary. Speech therapy to do cognitive assessment and treat as indicted. Rehabilitation nursing to assist with bowel, bladder, skin, wound care, medication administration, pain management. Supervisor Prepress to assist with discharge planning, community reentry. SCD's for DVT prophylaxis. She appears to be well motivated to participate in three hours of therapy a day. She should be able to tolerate three hours of therapy a day from a medical and orthopedic standpoint. She should benefit from the three hours of therapy a day. She has a reasonable discharge plan, reasonable discharge rehabilitation goals and a supportive community. She has various comorbidities that need to be closely monitored with medications and treatments adjusted on a daily basis as needed. These include: A FIB Postop nausea Intermittent dizziness associated with Head injury as a child Arthritis HTN Barriers to discharge for this patient who had been independent prior to this are for her to be modified independent to supervision for ADLs and mobility skills prior to discharge home with [facility], so as to lessen the burden of the caregivers. Risks for this patient include: 1. Fall 2. Fracture 3. DVT 4. Pulmonary embolism 5. Wound infection 6. Skin breakdown 7. Contractures 8. Poorly controlled pain 9. Urinary retention 10. UTI 11. Respiratory infection 12. Aspiration 13, Poorly controlled HTN 14. Recurrent nausea 15. Recurrent dizziness Estimated Length of Stay: 14 days Prognosis: Rehab prognosis appears good for goal of discharge home with [facility] modified independent to supervision for ADLs and mobility skills. VÍCTOR RICHEY MD August 07, 2016 20:22
--- NOTE | 2016-08-07 20:27 | Individualized Plan of Care ---
Individualized Plan of Care Rehab Nursing IPOC Order Admission Date August 07, 2016 at 11:41 Current Orders Orders Admission-Acute Rehab Unit (08/07/16 12:13) Vital Signs: Routine 08,16,00 (08/07/16 12:13) Sequential Compression Device 08,20 (08/07/16 12:13) Social Service (08/07/16 12:13) Rehab Nursing Orders-Ipoc (08/07/16 12:13) Physical Therapy Rehab Orders (08/07/16 12:13) Occupational Therapy Rehab Ord (08/07/16 12:13) Speech Therapy Rehab Orders (08/07/16 12:13) Turn And Reposition Q2HR (08/07/16 12:13) Intake & Output Shift Assessme 06,14,22 (08/07/16 12:13) Precautions (Aru) (08/07/16 12:13) Weekly Weight (Lbs) WEEK (08/07/16 12:13) Code/Resuscitation (08/07/16 12:18) Dilip Richardson (08/07/16 12:18) Weight Bearing Status (08/07/16 12:18) General/Regular (08/07/16 Dinner) Acetaminophen Tablet (Tylenol Tablet) (08/07/16 14:00) Aspirin Enteric Coated Tablet (Ecotrin T (08/08/16 09:00) Gabapentin Capsule/Tablet (Neurontin Cap (08/07/16 21:00) Metoclopramide Injection (Reglan Injecti (08/07/16 12:30) Ondansetron Injection (Zofran Injectio (08/07/16 12:30) Pantoprazole Tablet (Protonix Tablet) (08/08/16 09:00) Senna S Tablet (Senokot S Tablet) (08/08/16 09:00) Metoprolol Succinate (Xl) Tab (Toprol Xl (08/08/16 09:00) Tramadol Tablet (Ultram Tablet) (08/07/16 12:30) Cbc With Automated Diff (08/08/16 06:00) Comprehensive Metabolic Panel (08/08/16 06:00) Consult Physician (08/07/16 15:03) Patient Visit (08/07/16 ) Pt Eval Moderate Complexity (08/07/16 ) Gait Training, Ea 15 Min (08/07/16 ) Functional Activities, Ea 15 (08/07/16 ) Patient Visit (08/07/16 ) Exercise Therap, Ea 15 Min (08/07/16 ) Gait Training, Ea 15 Min (08/07/16 ) Patient Visit (08/07/16 ) Speech Sound Lang Comp (08/07/16 ) Rehab Nursing Orders: Diseage Management, Edu in Press Rel Techn, Hydration Management, Nutrition Management, Pain Management Toilet every (bladder): (hrs): 2 hours while awake prn PT IPOC Problem List: Activity Tolerance, Functional Strength, Safety, Balance, Gait, Transfer, Bed Mobility Treatment Plan: Continue Plan of Care Bed Mobility, Education, Functional Activity Indy, Functional Strength, Group Therapy, Gait, Safety, Therapeutic Exercise, Transfers Treatment Duration: Aug 21, 2016 Visits Per Week: 10-15 Minutes/Day (M-F): 60-90 Minutes/Day (Sat/Gray): prn OT IPOC Problems: Decreased UE Strength, Dependent Transfers, Impaired I ADL's, Impaired Self-Care Skills OT Problems Pt demonstrates decreased ADL functioning, mobility, strength, and activity tolerance. Pt to benefit from skilled OT intervention for ADL training, transfers, strengthening, adaptive equipment training, and home safety education to maximize level of function and allow safe return home. Plan of Care: ADL Retraining, Functional Mobility, Group Exercise/Act as Ind, UE Funct Exercise/Act Treatment Duration: Aug 28, 2016 Visits Per Week: 10-12 Minutes/Day (M-F): 60-90 Minutes/Day (Sat/Gray): PRN ST IPOC Speech Therapy Treatment Plan: Discontinue ST Physician IPOC Medical Issues being managed closely and that require the 24 hour availability of a physician:Postop nausea pain management Intermittent dizziness associated with CHI as a child followed by a Neurolgist as an outpatient HTN Medical Issues: Bowel/Bladder Function, DVT Prophylaxis, Falls Precautions, Fluid/Electrolyte/Nutrition Balance, Infection Protection, Pain Management, Wound Care, Other (List) (as per above) Brief Synthesis of Preadmission Screen, Post-Admission Evaluation, and Therapy Evaluations: 80 yo female who lives alone and had been Independent prior to fall with resulting hip fracture now s/p repair with orthopedics.Referred to IRU for ongoing therapies with goal of return home with [facility].PMH significant for CHI as a child with sequalae of intermittent dizziness followed by a Neurologist in [place].Also A FIB and HTN Just had vázquez catheter removed and voiding Medical Prognosis: good Anticipated Length of Stay: 08/21/16 Rehab Goals Modified Independent for adls and mobility skills Anticipated discharge destinat: Home with [facility] VÍCTOR RICHEY MD August 07, 2016 20:27
[2016-08-07] MEDS: GABAPENTIN 100 MG (NEURONTIN) CAP PO SCH (21:00)
[2016-08-08 04:47] VITALS: BP 125/67
[2016-08-08] MEDS: ACETAMINOPHEN 500 MG TAB (TYLENOL) PO SCH ×3 (06:20→21:14)
[2016-08-08 06:21] LABS: BASOPHILS % (AUTO) 0 % (0-10); EOSINOPHILS # (AUTO) 0.4 10^3/uL (0.0-0.3); EOSINOPHILS % (AUTO) 4 % (0-10); LYMPHOCYTES # (AUTO) 1.3 X 10^3 (1.0-4.0); LYMPHOCYTES % (AUTO) 15 % (12-44); MEAN CORPUSCULAR HEMOGLOBIN 30 PG (25-34); MEAN CORPUSCULAR HGB CONC 32 G/DL (32-36); MEAN CORPUSCULAR VOLUME 93 FL (80-99); MEAN PLATELET VOLUME 10.5 FL (7.4-10.4); MONOCYTES # (AUTO) 0.9 X 10^3 (0.0-1.0); MONOCYTES % (AUTO) 10 % (0-12); NEUTROPHILS # (AUTO) 6.1 X 10^3 (1.8-7.8); NEUTROPHILS % (AUTO) 71 % (42-75); PLATELET COUNT 168 10^3/uL (130-400); RED BLOOD COUNT 3.29 10^6/uL (4.35-5.85); RED CELL DISTRIBUTION WIDTH 13.2 % (10.0-14.5); WHITE BLOOD COUNT 8.6 10^3/uL (4.3-11.0)
[2016-08-08 06:42] LABS: ALANINE AMINOTRANSFERASE 42 U/L (0-55); ALBUMIN 3.2 G/DL (3.2-4.5); ANION GAP 8 MMOL/L (5-14); ASPARTATE AMINO TRANSFERASE 32 U/L (5-34); BILIRUBIN,TOTAL 0.8 MG/DL (0.1-1.0); BLOOD UREA NITROGEN 18 MG/DL (7-18); BUN/CREATININE RATIO 20; CALCIUM 8.4 MG/DL (8.5-10.1); CARBON DIOXIDE 26 MMOL/L (21-32); CHLORIDE 103 MMOL/L (98-107); CREATININE SERUM 0.89 MG/DL (0.60-1.30); GFR ESTIMATED > 60; GLUCOSE 93 MG/DL (70-105); POTASSIUM 3.9 MMOL/L (3.6-5.0); SODIUM 137 MMOL/L (135-145); TOTAL PROTEIN 5.6 G/DL (6.4-8.2)
[2016-08-08] MEDS: GABAPENTIN 100 MG (NEURONTIN) CAP PO SCH ×2 (07:56→20:21)
[2016-08-08] MEDS: SENNA W/DOCUSATE (SENOKOT S) TABLET PO SCH (07:56)
[2016-08-08] MEDS: PANTOPRAZOLE 20 MG TABLET (PROTONIX) PO SCH (07:57)
[2016-08-08] MEDS: ASPIRIN E.C. 325 MG (ECOTRIN) TABLET PO SCH (07:57)
--- NOTE | 2016-08-08 08:17 | PM & R (SOAP) Progress Note ---
Subjective Subjective/Events-last exam Patient was seen in her room this AM Adjusting well to unit Patient min assist for transfers.Labs noted Nausea improved Review of Systems Gastrointestinal: Nausea Neurological: Other (intermittent dizziness) Objective Exam Last Set of Vital Signs Vital Signs Date Time Temp Pulse Resp B/P (MAP) Pulse Ox O2 Delivery O2 Flow Rate FiO2 08/08/16 04:47 97.8 84 18 125/67 97 Capillary Refill : Less Than 3 Seconds I&O Bad tableGeneral: Alert, Oriented X3, Cooperative, No Acute Distress HEENT: Atraumatic, PERRLA, EOMI, Mucous Memb Moist/[place] Neck: Supple, No JVD Lungs: Clear to Auscultation Heart: Regular Rate Abdomen: Normal Bowel Sounds, Soft, No Tenderness Extremities: No Edema Skin: Other (island dressing at hip) Neuro: Other (weakness at affected leg proximally and generalized weakness otherwise) Results Lab Laboratory Tests 08/08/16 06:14: White Blood Count 8.6, Red Blood Count 3.29L, Hemoglobin 9.9L, Hematocrit 31L, Mean Corpuscular Volume 93, Mean Corpuscular Hemoglobin 30, Mean Corpuscular Hemoglobin Concent 32, Red Cell Distribution Width 13.2, Platelet Count 168, Mean Platelet Volume 10.5H, Neutrophils (%) (Auto) 71, Lymphocytes (%) (Auto) 15 , Monocytes (%) (Auto) 10, Eosinophils (%) (Auto) 4, Basophils (%) (Auto) 0, Neutrophils # (Auto) 6.1, Lymphocytes # (Auto) 1.3, Monocytes # (Auto) 0.9, Eosinophils # (Auto) 0.4H, Basophils # (Auto) 0.0, Sodium Level 137, Potassium Level 3.9, Chloride Level 103, Carbon Dioxide Level 26, Anion Gap 8, Blood Urea Nitrogen 18, Creatinine 0.89, Estimat Glomerular Filtration Rate > 60, BUN/ Creatinine Ratio 20, Glucose Level 93, Calcium Level 8.4L, Total Bilirubin 0.8, Aspartate Amino Transf (AST/SGOT) 32, Alanine Aminotransferase (ALT/SGPT) 42, Alkaline Phosphatase 55, Total Protein 5.6L, Albumin 3.2 Assessment/Plan Assessment S/P hip frx repair Ortho HX of CHI as child with intermittent dizziness followed by Neurologist on an outpatient basis Postop anemia Plan Continue PT/OT pain management and wound care F/U with Hospitalist and ortho as per their schedule VÍCTOR RICHEY MD August 08, 2016 08:17
--- NOTE | 2016-08-08 09:59 | Physical Therapy Daily Note ---
PT Daily Note-Current Subjective Patient in recliner pre tx, agrees to PT, states she has 10/10 pain in right hip , but by the end of therapy it is 8/10. Appearance Patient BTB post tx with nurse call, phone, tray, all needs met. Mental Status Patient Orientation: Normal For Age Transfers Functional [place] Measure 0=Not Assessed/NA 4=Minimal Assistance 1=Total Assistance 5=Supervision or Setup 2=Maximal Assistance 6=Modified [place] 3=Moderate Assistance 7=Complete IndependenceIRFPAI Quality Coding Scale 6 Independent with activity with or without an assistive device 5 Patient requires set up or clean up by helper. Patient completes activity by themselves 4 Supervision or touching assist (CGA). [place] provide cues , steadying assist 3 The helper provides less than half the effort to complete the activity 2 The helper provides more than half the effort to complete the activity 1 Dependent. The helper does all the effort to complete an activity 7 Patient refused to complete or attempt activity 9 The patient did not perform the activity before the current illness or injury 88 Not attempted due to Medical conditions or safety concerns Transfers (B, C, W/C) (FIM): 4 Scootin Rollin Supine to/from Sit: 4 Sit to/from Stand: 4 supine to sit min assist, sit to stand CGA Gait Training Gait (FIM): 2 Distance: 120'x2 Gait Level of Assist: 4 Gait Persons Needed: 1 Gait Assistive Device: FWW very slow, antalgic, patient takes several standing rest breaks to catch her breath Exercises Seated Therapy Exercises: Ankle pumps, Hip flexion Seated Reps: 20 Standing: Hip Abduction, Hamstring curls, Heel/toe raises, Marching, Mini squats Standing Reps: 20 LAQ alternating for 5 min Treatments bed mobility and transfers, ambulation, functional strengthening Assessment Current Status: Fair Progress improving ambulation and transfers. PT Short Term Goals Short Term Goals Time Frame: August 14, 2016 Gait (FIM): 4 Distance (FIM): 3=150 ft Gait Assistive Device: FWW PT Patient Office Rep Goals Patient Office Rep Goals PT Patient Office Rep Goals Time Frame: Aug 21, 2016 Transfers (B,C,W/C) (FIM): 6 Sit to Lying (QC): 6 Lying-Sitting on Side/Bed(QC): 6 Sit to Stand (QC): 6 Rollin Roll Left to Right (QC): 6 Chair/Dro-ol-Lnkbm Xfer(QC): 6 Car Transfer (QC): 5 Does the Patient Walk: Yes Gait (FIM): 6 Gait distance (FIM): 3=150 ft Walk 10 feet (QC): 6 Walk 10ft-Uneven Surface(QC): 6 Walk 50ft with 2 Turns (QC): 6 Walk 150 ft (QC): 6 Gait Assistive Device: FWW Does the Pt use WC or Scooter?: No Stairs (FIM): 2 # of Steps: 4 1 Step (curb) (QC): 4 4 Steps (QC): 4 12 Steps (QC): 88 Picking up an Object (QC): 4 PT Plan Problem List Problem List: Activity Tolerance, Functional Strength, Safety, Balance, Gait, Transfer, Bed Mobility, ROM Treatment/Plan Treatment Plan: Continue Plan of Care Treatment Plan: Bed Mobility, Education, Functional Activity Indy, Functional Strength, Group Therapy, Gait, Safety, Therapeutic Exercise, Transfers Treatment Duration: Aug 21, 2016 Visits Per Week: 10-15 Minutes/Day (M-F): 60-90 Minutes/Day (Sat/Gray): prn Safety Risks/Education Patient Education: Gait Training, Transfer Techniques, Correct Positioning, Safety Issues Teaching Recipient: Patient Teaching Methods: Demonstration, Discussion Response to Teaching: Reinforcement Needed Time/GCodes Time In: 900 Time Out: 1000 Total Billed Treatment Time: 60 Total Billed Treatment 1 visit GT 30' EX 30' ARETHA CARRERA PT August 08, 2016 09:59
--- NOTE | 2016-08-08 10:27 | Progress Note-Hospitalist ---
Progress Note Progress Notes/Assess & Plan Date Seen 08/08/16 Diagonsis/Assessment & Plan Patient doing well and working with physical therapy Appears to be dissatisfied with her overall progress but I tried to encourage her as much as possible Giving good effort in physical therapy currently Bowels are moving Pain is tolerated No fever, vital signs stable, pleasant, flat affect Regular rate rhythm, clear to auscultation bilaterally Trace edema Laboratory Tests 08/08/16 06:14 1. Status post ORIF right hip POD # 4 2. Questionable paroxysmal atrial fibrillation 3. Post op anemia 4. GERD Plan: Continue inpatient therapy Monitor blood pressure Monitor bowel function JOAN MANNING DO August 08, 2016 10:27
--- NOTE | 2016-08-08 12:48 | Occupational Ther Daily Note ---
OT Current Status-Daily Note Subjective Pt sitting in chair, agrees to treatment. Pt reports 10/10right hip pain, states she recently had pain medication. Mental Status/Objective Functional [place] Measure 0=Not Assessed/NA 4=Minimal Assistance 1=Total Assistance 5=Supervision or Setup 2=Maximal Assistance 6=Modified [place] 3=Moderate Assistance 7=Complete [place] ADL-Treatment Pt sit to stand from chair with minimal assistance. Gait to restroom with FWW, slow pace. Pt stood at sink for grooming tasks with SBA and increased time. Transfer to walk in shower with bench with minimal assistance and cues for safety using grab bars. Pt completed seated shower with increased time. Upper body bathing completed with SBA. Pt able to wash bilateral upper legs and trevor area. Used long handled sponge to wash lower legs and feet. Assist to wash buttocks. Don pullover shirt with set up. Pt required maximal assistance to don underwear and pants. Stood with CGA for balance during standing for pant hike. Pt unable to don socks without adaptive equipment. Pt fatigues quickly and requires rest breaks throughout treatment. Increased time for ADL tasks. Pt sitting in chair with needs met after session. Functional [place] Measure 0=Not Assessed/NA 4=Minimal Assistance 1=Total Assistance 5=Supervision or Setup 2=Maximal Assistance 6=Modified [place] 3=Moderate Assistance 7=Complete IndependenceIRFPAI Quality Coding Scale 6 Independent with activity with or without an assistive device 5 Patient requires set up or clean up by helper. Patient completes activity by themselves 4 Supervision or touching assist (CGA). [place] provide cues , steadying assist 3 The helper provides less than half the effort to complete the activity 2 The helper provides more than half the effort to complete the activity 1 Dependent. The helper does all the effort to complete an activity 7 Patient refused to complete or attempt activity 9 The patient did not perform the activity before the current illness or injury 88 Not attempted due to Medical conditions or safety concerns Eating (FIM): 7 (Pt reports feeding self, managing containers, and cuttin food without assistance.) Eating (QC): 6 Grooming (FIM): 5 Bathing (FIM): 4 Bathing Location: L Arm, R Arm, L Upper Leg, R Upper Leg, L Lower Leg ( including foot), R Lower Leg (including foot), Chest, Abdomen, Perineal Area Shower/Bathe Self (QC): 3 Upper Body (FIM): 5 Upper Body Dressing (QC): 5 Lower Body Dressing (FIM): 2 Lower Body Dressing (QC): 2 On/Off Footwear (QC): 2 Shower Transfer(FIM): 4 OT Short Term Goals Short Term Goals Time Frame: Aug 21, 2016 Bathing(FIM): 5 Upper Body Dressing(FIM): 5 Lower Body Dressing(FIM): 5 Toileting(FIM): 5 Toilet/Commode Transfer(FIM): 5 Shower Transfer(FIM): 5 Additional Short Term Goals: 1-Demonstrate ADL Tasks, 2-Verbalize Understanding , 3-ImproveStrength/Indy 1=Demonstrate adherence to instructed precautions during ADL tasks. 2=Patient will verbalize/demonstrate understanding of assistive devices/ modifications for ADL. 3=Patient will improve strength/tolerance for activity to enable patient to perform ADL's. OT Chcf Goals Towboat Operator Goals Time Frame: Aug 28, 2016 Eating (FIM): 6 Eating (QC): 6 Groomin Oral Hygiene (QC): 6 Bathing(FIM): 5 Shower/Bathe Self (QC): 5 Upper Body Dressing(FIM): 6 Upper Body Dressing (QC): 6 Lower Body Dressing(FIM): 6 Lower Body Dressing (QC): 6 On/Off Footwear (QC): 6 Toileting(FIM): 6 Toileting Hygiene (QC): 6 Toilet/Commode Transfer(FIM): 6 Toilet/Commode Transfer (QC): 6 Shower Transfer(FIM): 5 Additional Goals: 1-Demonstrate ADL Tasks, 2-Verbalize Understanding, 3- ImproveStrength/Indy 1=Demonstrate adherence to instructed precautions during ADL tasks. 2=Patient will verbalize/demonstrate understanding of assistive devices/ modifications for ADL. 3=Patient will improve strength/tolerance for activity to enable patient to perform ADL's. OT Education/Plan Problem List/Assessment Pt demonstrates decreased ADL functioning, mobility, strength, and activity tolerance. Pt to benefit from skilled OT intervention for ADL training, transfers, strengthening, adaptive equipment training, and home safety education to maximize level of function and allow safe return home. Discharge Recommendations Plan/Recommendations: Continue POC Treatment Plan/Plan of Care Patient would benefit from OT for education, treatment and training to promote independence in ADL's, mobility, safety and/or upper extremity function for ADL' s. Plan of Care: ADL Retraining, Functional Mobility, Group Exercise/Act as Ind, UE Funct Exercise/Act Treatment Duration: Aug 28, 2016 Visits Per Week: 10-12 Minutes/Day (M-F): 60-90 Minutes/Day (Sat/Gray): PRN Agreement: Yes Rehab Potential: Good Time/GCodes Start Time: 08:00 Stop Time: 09:00 Total Time Billed (hr/min): 60 Billed Treatment Time 1 visit, ADLx4(60minutes) REMY HURD OT August 08, 2016 12:48
--- NOTE | 2016-08-08 12:57 | Occupational Ther Daily Note ---
OT Current Status-Daily Note Subjective Pt resting in bed, agrees to treatment. Pt reports fatigue secondary to this morning's activities. Mental Status/Objective Functional [place] Measure 0=Not Assessed/NA 4=Minimal Assistance 1=Total Assistance 5=Supervision or Setup 2=Maximal Assistance 6=Modified [place] 3=Moderate Assistance 7=Complete [place] ADL-Treatment Functional [place] Measure 0=Not Assessed/NA 4=Minimal Assistance 1=Total Assistance 5=Supervision or Setup 2=Maximal Assistance 6=Modified [place] 3=Moderate Assistance 7=Complete IndependenceIRFPAI Quality Coding Scale 6 Independent with activity with or without an assistive device 5 Patient requires set up or clean up by helper. Patient completes activity by themselves 4 Supervision or touching assist (CGA). [place] provide cues , steadying assist 3 The helper provides less than half the effort to complete the activity 2 The helper provides more than half the effort to complete the activity 1 Dependent. The helper does all the effort to complete an activity 7 Patient refused to complete or attempt activity 9 The patient did not perform the activity before the current illness or injury 88 Not attempted due to Medical conditions or safety concerns Other Treatment Pt supine to sit with assist for right LE and trunk. Increased time and skilled cues for technique required for supine to sit. Sit to stand with minimal assistance. Gait to therapy gym with slow pace and occasional standing rest breaks. Arm bike x10 minutes to increase overall strength and activity tolerance. Pt completed activity with minimal resistance and slow pace. Two brief rest breaks required. Pt returned to room with increased time with FWW. Sit to supine with mod assist for bilateral LE. Pt in bed with needs met after session. OT Short Term Goals Short Term Goals Time Frame: Aug 21, 2016 Bathing(FIM): 5 Upper Body Dressing(FIM): 5 Lower Body Dressing(FIM): 5 Toileting(FIM): 5 Toilet/Commode Transfer(FIM): 5 Shower Transfer(FIM): 5 Additional Short Term Goals: 1-Demonstrate ADL Tasks, 2-Verbalize Understanding , 3-ImproveStrength/Indy 1=Demonstrate adherence to instructed precautions during ADL tasks. 2=Patient will verbalize/demonstrate understanding of assistive devices/ modifications for ADL. 3=Patient will improve strength/tolerance for activity to enable patient to perform ADL's. OT Cadd Operator Goals Cadd Operator Goals Time Frame: Aug 28, 2016 Eating (FIM): 6 Eating (QC): 6 Groomin Oral Hygiene (QC): 6 Bathing(FIM): 5 Shower/Bathe Self (QC): 5 Upper Body Dressing(FIM): 6 Upper Body Dressing (QC): 6 Lower Body Dressing(FIM): 6 Lower Body Dressing (QC): 6 On/Off Footwear (QC): 6 Toileting(FIM): 6 Toileting Hygiene (QC): 6 Toilet/Commode Transfer(FIM): 6 Toilet/Commode Transfer (QC): 6 Shower Transfer(FIM): 5 Additional Goals: 1-Demonstrate ADL Tasks, 2-Verbalize Understanding, 3- ImproveStrength/Indy 1=Demonstrate adherence to instructed precautions during ADL tasks. 2=Patient will verbalize/demonstrate understanding of assistive devices/ modifications for ADL. 3=Patient will improve strength/tolerance for activity to enable patient to perform ADL's. OT Education/Plan Problem List/Assessment Pt demonstrates decreased ADL functioning, mobility, strength, and activity tolerance. Pt to benefit from skilled OT intervention for ADL training, transfers, strengthening, adaptive equipment training, and home safety education to maximize level of function and allow safe return home. Discharge Recommendations Plan/Recommendations: Continue POC Treatment Plan/Plan of Care Patient would benefit from OT for education, treatment and training to promote independence in ADL's, mobility, safety and/or upper extremity function for ADL' s. Plan of Care: ADL Retraining, Functional Mobility, Group Exercise/Act as Ind, UE Funct Exercise/Act Treatment Duration: Aug 28, 2016 Visits Per Week: 10-12 Minutes/Day (M-F): 60-90 Minutes/Day (Sat/Gray): PRN Agreement: Yes Rehab Potential: Good Time/GCodes Start Time: 11:30 Stop Time: 12:00 Total Time Billed (hr/min): 30 Billed Treatment Time 1 visit, FA(15minutes), EX(15minutes) REMY HURD OT August 08, 2016 12:57
--- NOTE | 2016-08-08 14:02 | Therapy Group Daily Note ---
Therapy Daily Group Note Patient Education Topic Exercises (patient let exercises with written, illustrated cards) Exercises LE Seated Exercise, UE Exercise Other/Notes Patient ambulated with FWW SBA to and from Group activity. She actively participated with Group Therapy and was very social with all patients and staff. Patient was able to demonstrate and read the exercise cards to the Group as they performed each exercise. During the Group activity, PT educated the group on the benefits of exercise and mobility to promote healing and increase circulation. Start Time: 13:00 Stop Time: 13:40 Total Billed Treatment Time: 40 Total Billed Treatment 1 visit GRP 40 min CHIRAG TRIVEDI PT August 08, 2016 14:02
[2016-08-08 18:00] VITALS: BP 151/80
[2016-08-09] MEDS: PANTOPRAZOLE 20 MG TABLET (PROTONIX) PO SCH (06:20)
[2016-08-09] MEDS: ACETAMINOPHEN 500 MG TAB (TYLENOL) PO SCH ×3 (06:21→21:06)
[2016-08-09 06:31] VITALS: BP 120/78
[2016-08-09] MEDS: ASPIRIN E.C. 325 MG (ECOTRIN) TABLET PO SCH (08:21)
[2016-08-09] MEDS: SENNA W/DOCUSATE (SENOKOT S) TABLET PO SCH (08:22)
[2016-08-09] MEDS: GABAPENTIN 100 MG (NEURONTIN) CAP PO SCH ×2 (08:22→20:11)
--- NOTE | 2016-08-09 11:20 | Physical Therapy Daily Note ---
PT Daily Note-Current Subjective Pt. up in chair, agrees to therapy. She reports her stomach is cramping from eating breakfast. During session pt. c/o feeling "faint." Mental Status Patient Orientation: Person, Place, Time, Situation Transfers Functional [place] Measure 0=Not Assessed/NA 4=Minimal Assistance 1=Total Assistance 5=Supervision or Setup 2=Maximal Assistance 6=Modified [place] 3=Moderate Assistance 7=Complete IndependenceIRFPAI Quality Coding Scale 6 Independent with activity with or without an assistive device 5 Patient requires set up or clean up by helper. Patient completes activity by themselves 4 Supervision or touching assist (CGA). [place] provide cues , steadying assist 3 The helper provides less than half the effort to complete the activity 2 The helper provides more than half the effort to complete the activity 1 Dependent. The helper does all the effort to complete an activity 7 Patient refused to complete or attempt activity 9 The patient did not perform the activity before the current illness or injury 88 Not attempted due to Medical conditions or safety concerns Transfers (B, C, W/C) (FIM): 5 Sit to/from Stand: 5 Weight Bearing Weight Bearing Restriction: Weight Bearing/Tolerated Gait Training Does the Patient Walk?: Yes Gait (FIM): 2 Distance (FIM): 4=206-59 ft Distance: 3 x 50 ft Gait Level of Assist: 4 Gait Persons Needed: 1 Gait Assistive Device: FWW seated rest periods needed during gait due to "heart starting and stopping" Exercises Standing: Hamstring curls, Heel/toe raises, 3 way Ex=Flex, Abd, Ext, Marching Standing Reps: 10 Treatments gait, leg exercise, transfers Assessment Current Status: Good Progress, Fair Progress Pt. tolerated session fair/well today. She fatigued quickly during gait and c/ o heart issues and stomach cramping which limited activity level this date. Pt. returned to room and requested to use the commode. Monitored vitals in seated position, O2 sats 98-99%, BP: 116/67 with nurse present. Pt. on commode with nurse present post session, all needs met. PT Short Term Goals Short Term Goals Time Frame: August 14, 2016 Gait (FIM): 4 Distance (FIM): 3=150 ft Gait Assistive Device: FWW PT Retirement Goals Retirement Goals PT Retirement Goals Time Frame: Aug 21, 2016 Transfers (B,C,W/C) (FIM): 6 Sit to Lying (QC): 6 Lying-Sitting on Side/Bed(QC): 6 Sit to Stand (QC): 6 Rollin Roll Left to Right (QC): 6 Chair/Lzc-vf-Pyurm Xfer(QC): 6 Car Transfer (QC): 5 Does the Patient Walk: Yes Gait (FIM): 6 Gait distance (FIM): 3=150 ft Walk 10 feet (QC): 6 Walk 10ft-Uneven Surface(QC): 6 Walk 50ft with 2 Turns (QC): 6 Walk 150 ft (QC): 6 Gait Assistive Device: FWW Does the Pt use WC or Scooter?: No Stairs (FIM): 2 # of Steps: 4 1 Step (curb) (QC): 4 4 Steps (QC): 4 12 Steps (QC): 88 Picking up an Object (QC): 4 PT Plan Treatment/Plan Treatment Plan: Continue Plan of Care Treatment Plan: Bed Mobility, Education, Functional Activity [place], Functional Strength, Group Therapy, Gait, Safety, Therapeutic Exercise, Transfers Treatment Duration: Aug 21, 2016 Visits Per Week: 10-15 Minutes/Day (M-F): 60-90 Minutes/Day (Sat/Gray): prn Time/GCodes Time In: 855 Time Out: 930 Total Billed Treatment Time: 35 Total Billed Treatment 1, GT 15', FA 20' ROBERT GATES PT August 09, 2016 11:20
--- NOTE | 2016-08-09 12:06 | Progress Note-Hospitalist ---
Progress Note Progress Notes/Assess & Plan Date Seen 08/09/16 Diagonsis/Assessment & Plan RN didn't report this morning she felt heart palpitations and did become diaphoretic so Place telemetry and consulting cardiology since she sees Dr. Otoole on an ongoing basis Has a history of paroxysmal atrial fibrillation that is questionable Overall patient having slow recovery and it surprises me she felt like she was going to go home street from acute care and she can't really get around much by herself Bowels are moving and sometimes having intestinal cramps No fever, vital signs stable, pleasant, flat affect Regular rate rhythm, clear to auscultation bilaterally Trace edema 1. Status post ORIF right hip POD # 5 2. Questionable paroxysmal atrial fibrillation now experienced an episode this morning prompting telemetry and cardiology consultation 3. Post op anemia 4. GERD Plan: Continue inpatient therapy Monitor blood pressure Monitor bowel function Telemetry and consult cardiology JOAN MANNING DO August 09, 2016 12:06
--- NOTE | 2016-08-09 12:46 | Consultation-Cardiology ---
HPI-Cardiology Cardiology Consultation: Date of Consultation 08/09/16 Date of Admission 08/07/16 Attending Physician Jaya Boo MD Admitting Physician No,Local Physician Consulting Physician ALONZO ALVAREZ MD, FACP, FACC, [facility] Primary sanitation director: Dr Otoole Physician requesting consult: Dr Locke HPI: Chief Complaint: Reason for consultation: Palpitations 80 yo woman who took a nonsyncopal fall on 08/04/16, sustained a hip fracture, had surg on 08/05/16 and was admitted to inpatient rehab on . We are asked to see her for palp and dizziness. Both of these symptoms are chronic and she doesn't feel they have changed in the recent past. 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 She does not report any sustained palp or pineda syncope or exertional shortness of breath or any significant leg swelling Review of Systems-Cardiology Review of Systems Constitutional: malaise, tiredness, No weight loss, No weight gain Eyes: No vision change Ears/Nose/Throat: No ear discharge, No nasal drainage, No recent hearing loss Respiratory: As described under HPI Cardiovascular: As described under HPI Gastrointestinal: No diarrhea, nausea (chronic, intermittent), No vomiting, No stool coloration changes Genitourinary: No dysuria, No hematuria, No urine frequency changes Musculoskeletal: back pain (chronic), joint pain (chronic) Skin: No rash, No ulcerations Psychiatric/Neurological: other (chronic poor balance), No focal weakness, No syncope Hematologic: No bleeding abnormalities OAW-Zrshow-Ilpfhb Hx Patient Social History Alcohol Use: Denies Use Recreational Drug Use: No Smoking Status: Never a Smoker 2nd Hand Smoke Exposure: No Recent Foreign Travel: No Recent Infectious Disease Expo: No Physical Abuse Screen: No Sexual Abuse: No Immunizations Up To Date Tetanus Booster (TDap): Unknown Date of Pneumonia Vaccine: Jan 14, 2007 Past Medical History PMH As described under Assessment. Family Medical History Family History: Alcoholism 19 FATHER Diabetes mellitus G8 BROTHER G8 SISTER FH: breast cancer G8 SISTER FH: diverticulitis 19 FATHER 19 MOTHER G8 SISTER FH: macular degeneration 19 FATHER 19 MOTHER G8 BROTHER G8 SISTER Glaucoma 19 FATHER Allergies and Home Medications Allergies Coded Allergies: Penicillins (Verified Allergy, Unknown, 08/06/12) codeine (Unverified Allergy, Unknown, 12/16/11) Home Medications Calcium Carbonate/Vitamin D3 1 Each Tablet, 1 TAB PO DAILY, (Reported) Cyanocobalamin (Vitamin B-12) 500 Mcg Tablet, 500 MCG PO DAILY, (Reported) Dimenhydrinate 50 Mg Tablet, 50 MG PO BID PRN for DIZZINESS, (Reported) Gabapentin 100 Mg Capsule, 200 MG PO BID, (Reported) TAKES 2 (100MG) CAPSULES Metoprolol Succinate 25 Mg Tab.er.24h, 25 MG PO DAILY, (Reported) [place] 3 Polyunsat Fatty Acids 1,000 Mg Cap, 1,000 MG PO TID, (Reported) Omeprazole 20 Mg Capsule.dr, 20 MG PO DAILY, (Reported) Prasterone (Dhea) 50 Mg Capsule, 50 MG PO DAILY, (Reported) Vit C/Vit E/Lutein/Min/[place]-3 1 Each Capsule, 1 CAP PO DAILY, (Reported) Vitamin B Complex 1 Each Capsule, 1 CAP PO DAILY, (Reported) Physical Exam-Cardiology Physical Exam Vital Signs/I&O Vital Sign - Last 12Hours 08/09/16 06:31 Temp 98.9 Pulse 84 Resp 18 B/P (MAP) 120/78 Pulse Ox 97 Intake and Output 08/08/16 23:59 Intake Total 1850 ml Balance 1850 ml Capillary Refill : Less Than 3 Seconds Data Review Labs Laboratory Tests 08/08/16 06:14 A/P-Cardiology Assessment/Admission Diagnosis Intramedullary nail for intertrochanteric fracture of the R hip on 08/05/[address] Smith and [facility] Chronic palpitations for which she has undergone a cardiac work up with her sanitation director, Dr Otoole: Holter monitor done in October 2014 revealed episodes of PVCs, PACs, tolerating Toprol well. SEEQ monitor in July 2015 revealed sinus rhythm with occasional sinus bradycardia, asymptomatic. No frequent PVCs. No A Fib documented Previous cardiac work up: stress test done December 2014 revealed no ischemia or infarct with normal EF. 2-D echocardiogram in Nov 2014 within normal limits. 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 Carotid artery stenosis, mild, per carotid u/s at Dr Otoole's in Jan 2016 Discussion and Recomendations * I interviewed and examine the patient. I reviewed her records with Dr Otoole. These are summarized above * We recommend tele to eval for any arrhythmia beyond what has been documented in the past * Meanwhile, increase beta-joe * Continue aspirin * Monitor labs * Reeval TSH Clinical Quality Measures DVT/VTE Risk/Contraindication: Risk Factor Score Per Nursin RFS Level Per Nursing on Admit: 4+=Very High ALONZO ALVAREZ MD FACP FAC CCDS August 09, 2016 12:46
[2016-08-09 18:00] VITALS: BP 107/62
[2016-08-10] MEDS: PANTOPRAZOLE 20 MG TABLET (PROTONIX) PO SCH (06:08)
[2016-08-10] MEDS: ACETAMINOPHEN 500 MG TAB (TYLENOL) PO SCH ×3 (06:08→21:10)
[2016-08-10 06:20] VITALS: BP 168/74
[2016-08-10 06:29] LABS: ALANINE AMINOTRANSFERASE 30 U/L (0-55); ALBUMIN 3.3 G/DL (3.2-4.5); ANION GAP 10 MMOL/L (5-14); ASPARTATE AMINO TRANSFERASE 21 U/L (5-34); BILIRUBIN,TOTAL 0.8 MG/DL (0.1-1.0); BLOOD UREA NITROGEN 15 MG/DL (7-18); BUN/CREATININE RATIO 17; CALCIUM 8.5 MG/DL (8.5-10.1); CARBON DIOXIDE 24 MMOL/L (21-32); CHLORIDE 105 MMOL/L (98-107); CREATININE SERUM 0.89 MG/DL (0.60-1.30); GFR ESTIMATED > 60; GLUCOSE 93 MG/DL (70-105); MAGNESIUM 2.3 MG/DL (1.8-2.4); POTASSIUM 3.6 MMOL/L (3.6-5.0); SODIUM 139 MMOL/L (135-145); TOTAL PROTEIN 5.9 G/DL (6.4-8.2)
[2016-08-10 06:50] LABS: THYROID STIMULATING HORMONE 1.53 UIU/ML (0.35-4.94)
[2016-08-10] MEDS: ASPIRIN E.C. 325 MG (ECOTRIN) TABLET PO SCH (09:31)
[2016-08-10] MEDS: GABAPENTIN 100 MG (NEURONTIN) CAP PO SCH ×2 (09:31→20:25)
[2016-08-10] MEDS: SENNA W/DOCUSATE (SENOKOT S) TABLET PO SCH (09:33)
--- NOTE | 2016-08-10 13:34 | Progress Note-Cardiology ---
Cardiology SOAP Progress Note Subjective: No cp or palp or syncope Dizziness as before Objective: I&O/Vital Signs Vital Sign - Last 12Hours 08/11/16 08/11/16 01:00 04:47 Temp 98.0 Pulse 59 57 Resp 16 B/P (MAP) 133/66 Pulse Ox 96 Intake and Output 08/11/16 00:00 Intake Total 1600 ml Output Total 1890 ml Balance -290 ml Weight (Pounds): 237 Weight (Ounces): 0.0 Weight (Calculated Kilograms): [id number] Constitutional: AAO x 3, well-developed, well-nourished Respiratory: No accessory muscle use, other (Good bilateral air entry; no wheezes or rales) Cardiovascular: regular rate-rhythm, cardiac thrills are palpable, systolic murmur (faint KAYLIN at cardiac base) Gastrointestional: No tender, soft, No guarding, No rebound, audible bowel sounds Extremities: No clubbing, No cyanosis, No significant edema Neurologic/Psychiatric: oriented x 3, grossly intact, power is 5/5 both on sides Skin: No rash on exposed areas, No ulcerations on exposed areas Results/Procedures: Labs A/P: Assessment: Intramedullary nail for intertrochanteric fracture of the R hip on 08/05/[address] Smith at [facility] Chronic palpitations for which she has undergone a cardiac work up with her emt p, Dr Otoole: Holter monitor done in October 2014 revealed episodes of PVCs, PACs, tolerating Toprol well. SEEQ monitor in July 2015 revealed sinus rhythm with occasional sinus bradycardia, asymptomatic. No frequent PVCs. No A Fib documented Previous cardiac work up: Stress test done December 2014 revealed no ischemia or infarct with normal EF. 2-D echocardiogram in Nov 2014 within normal limits. 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 Carotid artery stenosis, mild, per carotid u/s at Dr Otoole's in Jan 2016 TSH normal on 08/10/16 Plan: * Continue to monitor clinically and on tele * I have spoken with her and answered questions NOTE: THIS NOTE WAS CREATED ON 05/13/16 AT THE TIME OF VISIT TO THE PATIENT AND SIGNED ON 08/11/16 ALONZO ALVAREZ MD FACP FAC CCDS August 10, 2016 13:33
[2016-08-10 17:25] VITALS: BP 143/79
[2016-08-10] MEDS: CATHETER FLUSH 10 ML SYR IV SCH (20:30)
[2016-08-11 04:47] VITALS: BP 133/66
[2016-08-11] MEDS: ACETAMINOPHEN 500 MG TAB (TYLENOL) PO SCH ×3 (06:06→21:02)
[2016-08-11] MEDS: PANTOPRAZOLE 20 MG TABLET (PROTONIX) PO SCH (06:06)
[2016-08-11] MEDS: CATHETER FLUSH 10 ML SYR IV SCH ×3 (06:06→20:05)
[2016-08-11] MEDS: SENNA W/DOCUSATE (SENOKOT S) TABLET PO SCH (07:33)
--- NOTE | 2016-08-11 08:32 | Cardiology Progress Note ---
Subjective Subjective/Events-last exam Patient sitting up in bed, no new complaints. Continues to complain of occasional episode of palpitation. Denies any CP or dyspnea. Review of Systems General: No Night Sweats, No Fatigue, No Malaise HEENT: No Visual Changes, No Dysphasia, No Sore Throat Pulmonary: No Dyspnea, No Cough Cardiovascular: No: Chest Pain, Edema, Palpitations, Paroxysmal Noc. Dyspnea Gastrointestinal: No: Abdominal Pain, Constipation, Nausea, Vomiting Genitourinary: No Dysuria, No Frequency Musculoskeletal: No: back pain, neck pain Neurological: No: Change in speech, Confusion, Numbness, Weakness Objective-Cardiology Exam Last Set of Vital Signs Vital Signs 08/11/16 04:47 Temp 98.0 Pulse 57 Resp 16 B/P (MAP) 133/66 Pulse Ox 96 Capillary Refill : Less Than 3 Seconds I&O Intake and Output 08/11/16 00:00 Intake Total 2400 ml Output Total 1890 ml Balance 510 ml Intake Oral 2400 ml Output Urine Total 1890 ml # Voids 8 General: Alert, Oriented X3, Cooperative, No Acute Distress HEENT: Atraumatic, PERRLA, EOMI, Mucous Memb Moist/[place] Neck: Supple, No JVD Lungs: Clear to Auscultation Heart: Regular Rate Abdomen: Normal Bowel Sounds, Soft, No Tenderness Extremities: No Edema Skin: Other (dressing at right hip) Neuro: Other (weakness at affected leg proximally and generalized weakness otherwise) A/P-Cardiology Admission Diagnosis Right hip fracture Palpitations HTN JAY Assessment/Plan R hip fracture, s/p repair on 08/05/[address] Smith. Continue with PT. Chronic palpitations for which she has undergone a cardiac work up in the past including Holter monitor done in October 2014 which revealed episodes of PVCs, PACs. SEEQ monitor in July 2015 revealed sinus rhythm with occasional sinus bradycardia, asymptomatic. No frequent PVCs. No A Fib documented. Tolerating Toprol XL well at this time. Ok to discontinue telemetry. Continue to monitor. Previous cardiac work up: Stress test done December 2014 revealed no ischemia or infarct with normal EF. 2-D echocardiogram in Nov 2014 within normal limits. Holter monitor in Oct 2014 as documented above Hypertension, by history. Continue to monitor BP/HR. 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 Carotid artery stenosis, mild non obstructive disease per carotid u/s Jan 2016, continue to monitor. TSH normal on 08/10/16 Clinical Quality Measures DVT/VTE Risk/Contraindication: Risk Factor Score Per Nursin RFS Level Per Nursing on Admit: 4+=Very High NIDA CHAMPAGNE August 11, 2016 08:32
[2016-08-11] MEDS: ASPIRIN E.C. 325 MG (ECOTRIN) TABLET PO SCH (08:55)
[2016-08-11] MEDS: GABAPENTIN 100 MG (NEURONTIN) CAP PO SCH ×2 (08:55→20:05)
--- NOTE | 2016-08-11 10:03 | PM & R (SOAP) Progress Note ---
Subjective Subjective/Events-last exam Patient was seen in her room this AM Patient anxious about her SOB and Heart reassured Discussed case with RN Appreciate DR smart and Cardiologys notes and orders Patient mildly bradycardic at times Patient may have increased difficulty dealing with stress due to Head Injury as a child which is followed By DR Danielle Neurologist at [facility] Patient Min assist for gait Review of Systems Pulmonary: Dyspnea Cardiovascular: Palpitations Objective Exam Last Set of Vital Signs Vital Signs Date Time Temp Pulse Resp B/P (MAP) Pulse Ox O2 Delivery O2 Flow Rate FiO2 08/11/16 04:47 98.0 57 16 133/66 96 Capillary Refill : Less Than 3 Seconds I&O Intake and Output 08/11/16 00:00 Intake Total 2400 ml Output Total 1890 ml Balance 510 ml Intake Oral 2400 ml Output Urine Total 1890 ml # Voids 8 General: Alert, Oriented X3, Cooperative, No Acute Distress HEENT: Atraumatic, PERRLA, EOMI, Mucous Memb Moist/[place] Neck: Supple, No JVD Lungs: Clear to Auscultation Heart: Regular Rate Abdomen: Normal Bowel Sounds, Soft, No Tenderness Extremities: No Edema Skin: Other (dressing at right hip) Neuro: Other (weakness at affected leg proximally and generalized weakness otherwise) Results Lab Laboratory Tests 08/10/16 05:50: Sodium Level 139, Potassium Level 3.6, Chloride Level 105, Carbon Dioxide Level 24, Anion Gap 10, Blood Urea Nitrogen 15, Creatinine 0.89, Estimat Glomerular Filtration Rate > 60, BUN/Creatinine Ratio 17, Glucose Level 93, Calcium Level 8.5, Magnesium Level 2.3, Total Bilirubin 0.8, Aspartate Amino Transf (AST/SGOT ) 21, Alanine Aminotransferase (ALT/SGPT) 30, Alkaline Phosphatase 53, Total Protein 5.9L, Albumin 3.3, Thyroid Stimulating Hormone (TSH) 1.53 Assessment/Plan Assessment S/P hip frx repair Ortho 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 VÍCTOR RICHEY MD August 11, 2016 10:03
--- NOTE | 2016-08-11 10:44 | Physical Therapy Daily Note ---
PT Daily Note-Current Subjective Patient in chair pre tx, agrees to PT, has pain of 8/10 in right hip, she states she has already had pain meds. Appearance Patient in bed post tx with nurse call, phone, tray, all needs met. Mental Status Patient Orientation: Normal For Age Transfers Functional [place] Measure 0=Not Assessed/NA 4=Minimal Assistance 1=Total Assistance 5=Supervision or Setup 2=Maximal Assistance 6=Modified [place] 3=Moderate Assistance 7=Complete IndependenceIRFPAI Quality Coding Scale 6 Independent with activity with or without an assistive device 5 Patient requires set up or clean up by helper. Patient completes activity by themselves 4 Supervision or touching assist (CGA). [place] provide cues , steadying assist 3 The helper provides less than half the effort to complete the activity 2 The helper provides more than half the effort to complete the activity 1 Dependent. The helper does all the effort to complete an activity 7 Patient refused to complete or attempt activity 9 The patient did not perform the activity before the current illness or injury 88 Not attempted due to Medical conditions or safety concerns Transfers (B, C, W/C) (FIM): 4 Scootin Rollin Supine to/from Sit: 4 Sit to/from Stand: 4 Patient needs assist with right leg getting into and out of bed, assist for sit to stand from low surfaces. Gait Training Gait (FIM): 4 Distance: 150'x4 Gait Level of Assist: 4 Gait Persons Needed: 1 Gait Assistive Device: FWW CGA, slow, antalgic, patient needs occasional rest breaks to catch her breath Exercises Standing: Hip Abduction, Hamstring curls, Heel/toe raises, Mini squats Standing Reps: 20 NuStep Minutes: 10 NuStep Workload: 4 Treatments bed mobility and transfers, ambulation, functional strengthening, patient needed to be toileted once, she was on the stepper and states she needs to use the restroom and has been having diarrhea, needed only min assist to stand from the toilet Assessment Current Status: Fair Progress improving endurance and transfers PT Short Term Goals Short Term Goals Time Frame: August 14, 2016 Gait (FIM): 4 Distance (FIM): 3=150 ft Gait Assistive Device: FWW PT Senior Research Fellow Goals Assisted Goals PT Assisted Goals Time Frame: Aug 21, 2016 Transfers (B,C,W/C) (FIM): 6 Sit to Lying (QC): 6 Lying-Sitting on Side/Bed(QC): 6 Sit to Stand (QC): 6 Rollin Roll Left to Right (QC): 6 Chair/[place] Xfer(QC): 6 Car Transfer (QC): 5 Does the Patient Walk: Yes Gait (FIM): 6 Gait distance (FIM): 3=150 ft Walk 10 feet (QC): 6 Walk 10ft-Uneven Surface(QC): 6 Walk 50ft with 2 Turns (QC): 6 Walk 150 ft (QC): 6 Gait Assistive Device: FWW Does the Pt use WC or Scooter?: No Stairs (FIM): 2 # of Steps: 4 1 Step (curb) (QC): 4 4 Steps (QC): 4 12 Steps (QC): 88 Picking up an Object (QC): 4 PT Plan Problem List Problem List: Activity Tolerance, Functional Strength, Safety, Balance, Gait, Transfer, Bed Mobility, ROM Treatment/Plan Treatment Plan: Continue Plan of Care Treatment Plan: Bed Mobility, Education, Functional Activity Indy, Functional Strength, Group Therapy, Gait, Safety, Therapeutic Exercise, Transfers Treatment Duration: Aug 21, 2016 Visits Per Week: 10-15 Minutes/Day (M-F): 60-90 Minutes/Day (Sat/Gray): prn Safety Risks/Education Patient Education: Gait Training, Transfer Techniques, Correct Positioning, Safety Issues Teaching Recipient: Patient Teaching Methods: Demonstration, Discussion Response to Teaching: Reinforcement Needed Time/GCodes Time In: 945 Time Out: 1045 Total Billed Treatment Time: 60 Total Billed Treatment 1 visit EX 20' FA 10' GT 30' ARETHA CARRERA PT August 11, 2016 10:44
--- NOTE | 2016-08-11 11:50 | Cardiology Progress Note ---
Subjective Subjective/Events-last exam Patient was seen and evaluated, events since admission reviewed, still having anxiety and palpitations, no arrhythmia on telemetry Review of Systems General: No Chills, No Night Sweats, No Fatigue, No Malaise, No Appetite, No Other HEENT: No Head Aches, No Visual Changes, No Eye Pain, No Ear Pain, No Dysphasia , No Sinus Congestion, No Post Nasal Drip, No Sore Throat, No Other Pulmonary: No Dyspnea, No Cough, No Pleuritic Chest Pain, No Other Cardiovascular: Palpitations, No: Chest Pain, Edema, Lt Headedness, Orthopnea, Other, Paroxysmal Noc. Dyspnea Objective-Cardiology Exam Last Set of Vital Signs Vital Signs 08/11/16 04:47 Temp 98.0 Pulse 57 Resp 16 B/P (MAP) 133/66 Pulse Ox 96 Capillary Refill : Less Than 3 Seconds I&O Intake and Output 08/11/16 00:00 Intake Total 2400 ml Output Total 1890 ml Balance 510 ml Intake Oral 2400 ml Output Urine Total 1890 ml # Voids 8 General: Alert, Oriented X3, Cooperative, No Acute Distress HEENT: Atraumatic, PERRLA, EOMI, Mucous Memb Moist/[place] Neck: Supple, No JVD Lungs: Clear to Auscultation Heart: Regular Rate, Normal S1, Normal S2 Abdomen: Normal Bowel Sounds, Soft, No Tenderness Extremities: No Clubbing, No Edema Skin: No Rashes, Other (dressing at right hip) Neuro: Other (weakness at affected leg proximally and generalized weakness otherwise) A/P-Cardiology Admission Diagnosis Right hip fracture Palpitations HTN JAY Assessment/Plan R hip fracture, s/p repair on 08/05/[address] Smith. Continue with PT. Chronic palpitations for which she has undergone a cardiac work up in the past including Holter monitor done in October 2014 which revealed episodes of PVCs, PACs. SEEQ monitor in July 2015 revealed sinus rhythm with occasional sinus bradycardia, asymptomatic. No frequent PVCs. No A Fib documented. Tolerating Toprol XL well at this time. continue to monitor on telemetry Previous cardiac work up: Stress test done December 2014 revealed no ischemia or infarct with normal EF. 2-D echocardiogram in Nov 2014 within normal limits. Holter monitor in Oct 2014 as documented above Hypertension, by history. Continue to monitor BP/HR. 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 Carotid artery stenosis, mild non obstructive disease per carotid u/s Jan 2016, continue to monitor. TSH normal on 08/10/16 Clinical Quality Measures DVT/VTE Risk/Contraindication: Risk Factor Score Per Nursin RFS Level Per Nursing on Admit: 4+=Very High GERARD SHUKLA MD August 11, 2016 11:50
--- NOTE | 2016-08-11 12:53 | Occupational Ther Daily Note ---
OT Current Status-Daily Note Subjective Pt alert, sitting in recliner. Pt agreed to therapy. Agreed to therapy. Mental Status/Objective Patient Orientation: Person, Place, Time, Situation Functional [place] Measure 0=Not Assessed/NA 4=Minimal Assistance 1=Total Assistance 5=Supervision or Setup 2=Maximal Assistance 6=Modified [place] 3=Moderate Assistance 7=Complete [place] Attachments: IV ADL-Treatment Pt completed shower today. Pt ambulated into bathroom with SBA using FWW. Transferred into shower using shower bench, grabbar and FWW with SBA. Pt was able to bathe self with supervision using shower bench, grabbar, hand held shower and long handle shoe horn. Pt was able to doff all clothing by self using AE. BARROSO doffed and donned knee high compression stocking. Pt was able to dry self though required assistance to dryer lower legs. Pt used AE to don lower body clothing with CGA after set up. Pt required multiple breaks during tasks due to dizziness, SOA and nausea. Pt transported into room to increase air flow and for pt to get cooler air. Pt took increased time to complete all ADLs. Pt stated that her abdomen was cramping and needed to use the toilet quickly. BSC brought to pt and pt was able to transfer with SBA. Pt had diarrhea. Pt wanted to sit on BSC until her cramps stopped. Call light/phone and emesis basin within reach. BARROSO checked on pt and pt continued to need to sit. Nrsg was told about pt. All needs met in room. Functional [place] Measure 0=Not Assessed/NA 4=Minimal Assistance 1=Total Assistance 5=Supervision or Setup 2=Maximal Assistance 6=Modified [place] 3=Moderate Assistance 7=Complete IndependenceIRFPAI Quality Coding Scale 6 Independent with activity with or without an assistive device 5 Patient requires set up or clean up by helper. Patient completes activity by themselves 4 Supervision or touching assist (CGA). [place] provide cues , steadying assist 3 The helper provides less than half the effort to complete the activity 2 The helper provides more than half the effort to complete the activity 1 Dependent. The helper does all the effort to complete an activity 7 Patient refused to complete or attempt activity 9 The patient did not perform the activity before the current illness or injury 88 Not attempted due to Medical conditions or safety concerns Bathing (FIM): 4 Upper Body (FIM): 5 Lower Body Dressing (FIM): 4 Toileting (FIM): 5 Transfers (B, C, W/C) (FIM): 5 Toilet/Commode Transfer (FIM): 5 Shower Transfer(FIM): 5 OT Short Term Goals Short Term Goals Time Frame: Aug 21, 2016 Bathing(FIM): 5 Upper Body Dressing(FIM): 5 Lower Body Dressing(FIM): 5 Toileting(FIM): 5 Toilet/Commode Transfer(FIM): 5 Shower Transfer(FIM): 5 Additional Short Term Goals: 1-Demonstrate ADL Tasks, 2-Verbalize Understanding , 3-ImproveStrength/[place] 1=Demonstrate adherence to instructed precautions during ADL tasks. 2=Patient will verbalize/demonstrate understanding of assistive devices/ modifications for ADL. 3=Patient will improve strength/tolerance for activity to enable patient to perform ADL's. OT Senior Living Goals Senior Living Goals Time Frame: Aug 28, 2016 Eating (FIM): 6 Eating (QC): 6 Groomin Oral Hygiene (QC): 6 Bathing(FIM): 5 Shower/Bathe Self (QC): 5 Upper Body Dressing(FIM): 6 Upper Body Dressing (QC): 6 Lower Body Dressing(FIM): 6 Lower Body Dressing (QC): 6 On/Off Footwear (QC): 6 Toileting(FIM): 6 Toileting Hygiene (QC): 6 Toilet/Commode Transfer(FIM): 6 Toilet/Commode Transfer (QC): 6 Shower Transfer(FIM): 5 Additional Goals: 1-Demonstrate ADL Tasks, 2-Verbalize Understanding, 3- ImproveStrength/Indy 1=Demonstrate adherence to instructed precautions during ADL tasks. 2=Patient will verbalize/demonstrate understanding of assistive devices/ modifications for ADL. 3=Patient will improve strength/tolerance for activity to enable patient to perform ADL's. OT Education/Plan Problem List/Assessment Pt demonstrates decreased ADL functioning, mobility, strength, and activity tolerance. Pt to benefit from skilled OT intervention for ADL training, transfers, strengthening, adaptive equipment training, and home safety education to maximize level of function and allow safe return home. Discharge Recommendations Plan/Recommendations: Continue POC Treatment Plan/Plan of Care Patient would benefit from OT for education, treatment and training to promote independence in ADL's, mobility, safety and/or upper extremity function for ADL' s. Plan of Care: ADL Retraining, Functional Mobility, Group Exercise/Act as Ind, UE Funct Exercise/Act Treatment Duration: Aug 28, 2016 Visits Per Week: 10-12 Minutes/Day (M-F): 60-90 Minutes/Day (Sat/Gray): PRN Agreement: Yes Rehab Potential: Good Time/GCodes Start Time: 07:00 Stop Time: 08:30 Total Time Billed (hr/min): 90 Billed Treatment Time 1 visit-ADL 6 (90 min) ESTRADA BHATIA August 11, 2016 12:53
--- NOTE | 2016-08-11 15:03 | Physical Therapy Daily Note ---
PT Daily Note-Current Subjective Patient in recliner pre tx, agrees to PT, has pain of 7/10 in right leg, more pain but she says she has already had pain meds. Appearance Patient BTB post tx with nurse call, phone, tray, all needs met. Mental Status Patient Orientation: Normal For Age Transfers Functional [place] Measure 0=Not Assessed/NA 4=Minimal Assistance 1=Total Assistance 5=Supervision or Setup 2=Maximal Assistance 6=Modified [place] 3=Moderate Assistance 7=Complete IndependenceIRFPAI Quality Coding Scale 6 Independent with activity with or without an assistive device 5 Patient requires set up or clean up by helper. Patient completes activity by themselves 4 Supervision or touching assist (CGA). [place] provide cues , steadying assist 3 The helper provides less than half the effort to complete the activity 2 The helper provides more than half the effort to complete the activity 1 Dependent. The helper does all the effort to complete an activity 7 Patient refused to complete or attempt activity 9 The patient did not perform the activity before the current illness or injury 88 Not attempted due to Medical conditions or safety concerns Transfers (B, C, W/C) (FIM): 4 Scootin Rollin Supine to/from Sit: 4 Sit to/from Stand: 5 min assist for sit to supine with right leg getting back into bed Gait Training Gait (FIM): 5 Distance: 150'x2 Gait Level of Assist: 5 Gait Persons Needed: 1 Gait Assistive Device: FWW very slow, antalgic, patient needs many standing rest breaks to catch her breath Exercises sit to stands 3 sets of 5, alternating LAQ for 5 min Treatments bed mobility and transfers, ambulation, functional strengthening Assessment Current Status: Fair Progress improving endurance, ambulation, transfers PT Short Term Goals Short Term Goals Time Frame: August 14, 2016 Gait (FIM): 4 Distance (FIM): 3=150 ft Gait Assistive Device: FWW PT Usp Goals Equipment Oiler Goals PT Usp Goals Time Frame: Aug 21, 2016 Transfers (B,C,W/C) (FIM): 6 Sit to Lying (QC): 6 Lying-Sitting on Side/Bed(QC): 6 Sit to Stand (QC): 6 Rollin Roll Left to Right (QC): 6 Chair/[place] Xfer(QC): 6 Car Transfer (QC): 5 Does the Patient Walk: Yes Gait (FIM): 6 Gait distance (FIM): 3=150 ft Walk 10 feet (QC): 6 Walk 10ft-Uneven Surface(QC): 6 Walk 50ft with 2 Turns (QC): 6 Walk 150 ft (QC): 6 Gait Assistive Device: FWW Does the Pt use WC or Scooter?: No Stairs (FIM): 2 # of Steps: 4 1 Step (curb) (QC): 4 4 Steps (QC): 4 12 Steps (QC): 88 Picking up an Object (QC): 4 PT Plan Problem List Problem List: Activity Tolerance, Functional Strength, Safety, Balance, Gait, Transfer, Bed Mobility, ROM Treatment/Plan Treatment Plan: Continue Plan of Care Treatment Plan: Bed Mobility, Education, Functional Activity Indy, Functional Strength, Group Therapy, Gait, Safety, Therapeutic Exercise, Transfers Treatment Duration: Aug 21, 2016 Visits Per Week: 10-15 Minutes/Day (M-F): 60-90 Minutes/Day (Sat/Gray): prn Safety Risks/Education Patient Education: Gait Training, Transfer Techniques, Safety Issues Teaching Recipient: Patient Teaching Methods: Demonstration, Discussion Response to Teaching: Reinforcement Needed Time/GCodes Time In: 1430 Time Out: 1500 Total Billed Treatment Time: 30 Total Billed Treatment 1 visit EX 10' GT 20' ARETHA CARRERA PT August 11, 2016 15:03
[2016-08-11 18:00] VITALS: BP 128/68
[2016-08-12 05:07] VITALS: BP 148/78
[2016-08-12] MEDS: CATHETER FLUSH 10 ML SYR IV SCH ×3 (06:24→20:59)
[2016-08-12] MEDS: ACETAMINOPHEN 500 MG TAB (TYLENOL) PO SCH ×3 (06:24→21:00)
[2016-08-12] MEDS: PANTOPRAZOLE 20 MG TABLET (PROTONIX) PO SCH (06:25)
[2016-08-12] MEDS: SENNA W/DOCUSATE (SENOKOT S) TABLET PO SCH (07:42)
--- NOTE | 2016-08-12 08:00 | Cardiology Progress Note ---
Subjective Subjective/Events-last exam Patient is in bed, anxious today, denied any chest pain or palpitations, telemetry didn't show arrhythmia Review of Systems General: No Chills, No Night Sweats, No Fatigue, No Malaise, No Appetite, No Other HEENT: No Head Aches, No Visual Changes, No Eye Pain, No Ear Pain, No Dysphasia , No Sinus Congestion, No Post Nasal Drip, No Sore Throat, No Other Pulmonary: Dyspnea, No Cough, No Pleuritic Chest Pain, No Other Cardiovascular: No: Chest Pain, Edema, Lt Headedness, Orthopnea, Other, Palpitations, Paroxysmal Noc. Dyspnea Objective-Cardiology Exam Last Set of Vital Signs Vital Signs 08/12/16 05:07 Temp 97.6 Pulse 67 Resp 18 B/P (MAP) 148/78 Pulse Ox 98 Capillary Refill : Less Than 3 Seconds I&O Intake and Output 08/12/16 00:00 Intake Total 1850 ml Output Total 650 ml Balance 1200 ml Intake Oral 1850 ml Output Urine Total 650 ml # Voids 4 # Bowel Movements 4 General: Alert, Oriented X3, Cooperative, No Acute Distress HEENT: Atraumatic, PERRLA, EOMI, Mucous Memb Moist/[place] Neck: Supple, No JVD Lungs: Clear to Auscultation Heart: Regular Rate, Normal S1, Normal S2 Abdomen: Normal Bowel Sounds, Soft, No Tenderness Extremities: No Clubbing, No Edema Skin: No Rashes, Other (dressing at right hip) Neuro: Other (weakness at affected leg proximally and generalized weakness otherwise) A/P-Cardiology Admission Diagnosis Right hip fracture Palpitations HTN JAY Assessment/Plan R hip fracture, s/p repair on 08/05/[address] Smith. Continue with PT. Chronic palpitations for which she has undergone a cardiac work up in the past including Holter monitor done in October 2014 which revealed episodes of PVCs, PACs. SEEQ monitor in July 2015 revealed sinus rhythm with occasional sinus bradycardia, asymptomatic. No frequent PVCs. No A Fib documented. Tolerating Toprol XL well at this time. continue to monitor on telemetry, no arrhythmia was detected Previous cardiac work up: Stress test done December 2014 revealed no ischemia or infarct with normal EF. 2-D echocardiogram in Nov 2014 within normal limits. Holter monitor in Oct 2014 as documented above Hypertension, by history. Continue to monitor BP/HR. 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 Carotid artery stenosis, mild non obstructive disease per carotid u/s Jan 2016, continue to monitor. TSH normal on 08/10/16 Clinical Quality Measures DVT/VTE Risk/Contraindication: Risk Factor Score Per Nursin RFS Level Per Nursing on Admit: 4+=Very High GERARD SHUKLA MD August 12, 2016 08:00
[2016-08-12] MEDS: ASPIRIN E.C. 325 MG (ECOTRIN) TABLET PO SCH (08:51)
[2016-08-12] MEDS: ONDANSETRON 4 MG (ZOFRAN) ORAL DISSOLVE TAB PO PRN (08:51)
[2016-08-12] MEDS: GABAPENTIN 100 MG (NEURONTIN) CAP PO SCH ×2 (08:51→20:57)
--- NOTE | 2016-08-12 10:45 | Physical Therapy Daily Note ---
PT Daily Note-Current Subjective Patient in recliner pre tx, agrees to PT, states she has been very nauseated and dizzy today and will probably have to take it slow. She also has more pain today at 10/10 in her right leg. She is also complaining of sciatica. Appearance Patient in bed post tx with nurse call, phone, tray, all needs met. Mental Status Patient Orientation: Person, Place, Situation Transfers Functional [place] Measure 0=Not Assessed/NA 4=Minimal Assistance 1=Total Assistance 5=Supervision or Setup 2=Maximal Assistance 6=Modified [place] 3=Moderate Assistance 7=Complete IndependenceIRFPAI Quality Coding Scale 6 Independent with activity with or without an assistive device 5 Patient requires set up or clean up by helper. Patient completes activity by themselves 4 Supervision or touching assist (CGA). [place] provide cues , steadying assist 3 The helper provides less than half the effort to complete the activity 2 The helper provides more than half the effort to complete the activity 1 Dependent. The helper does all the effort to complete an activity 7 Patient refused to complete or attempt activity 9 The patient did not perform the activity before the current illness or injury 88 Not attempted due to Medical conditions or safety concerns Transfers (B, C, W/C) (FIM): 4 Scootin Rollin Supine to/from Sit: 4 Sit to/from Stand: 5 Patient needs min assist with right leg getting into and out of bed. Gait Training Gait (FIM): 5 Distance: 150'x2 Gait Level of Assist: 5 Gait Persons Needed: 1 Gait Assistive Device: FWW Slow, antalgic ambulation, patient has to take many standing rest breaks to catch her breath and for fatigue. Exercises Seated Therapy Exercises: Ankle pumps, Hip flexion Seated Reps: 20 Standing: Hip Abduction, Hamstring curls, Heel/toe raises, Marching, Mini squats Standing Reps: 20 LAQ alternating for 5 min, toe touches on step x20 each side NuStep Minutes: 15 NuStep Workload: 5 Treatments bed mobility and transfers, ambulation, functional strengthening Assessment Current Status: Fair Progress improved ambulation but her nausea slowed things down PT Short Term Goals Short Term Goals Time Frame: August 14, 2016 Gait (FIM): 4 Distance (FIM): 3=150 ft Gait Assistive Device: FWW PT Detention Goals Energy Scheduler Goals PT Detention Goals Time Frame: Aug 21, 2016 Transfers (B,C,W/C) (FIM): 6 Sit to Lying (QC): 6 Lying-Sitting on Side/Bed(QC): 6 Sit to Stand (QC): 6 Rollin Roll Left to Right (QC): 6 Chair/Dop-hm-Pskrf Xfer(QC): 6 Car Transfer (QC): 5 Does the Patient Walk: Yes Gait (FIM): 6 Gait distance (FIM): 3=150 ft Walk 10 feet (QC): 6 Walk 10ft-Uneven Surface(QC): 6 Walk 50ft with 2 Turns (QC): 6 Walk 150 ft (QC): 6 Gait Assistive Device: FWW Does the Pt use WC or Scooter?: No Stairs (FIM): 2 # of Steps: 4 1 Step (curb) (QC): 4 4 Steps (QC): 4 12 Steps (QC): 88 Picking up an Object (QC): 4 PT Plan Problem List Problem List: Activity Tolerance, Functional Strength, Safety, Balance, Gait, Transfer, Bed Mobility, ROM Treatment/Plan Treatment Plan: Continue Plan of Care Treatment Plan: Bed Mobility, Education, Functional Activity Indy, Functional Strength, Group Therapy, Gait, Safety, Therapeutic Exercise, Transfers Treatment Duration: Aug 21, 2016 Visits Per Week: 10-15 Minutes/Day (M-F): 60-90 Minutes/Day (Sat/Gray): prn Safety Risks/Education Patient Education: Gait Training, Transfer Techniques, Correct Positioning, Safety Issues Teaching Recipient: Patient Teaching Methods: Demonstration, Discussion Response to Teaching: Reinforcement Needed Time/GCodes Time In: 945 Time Out: 1045 Total Billed Treatment Time: 60 Total Billed Treatment 1 visit GT 25' EX 35' ARETHA CARRERA PT August 12, 2016 10:45
--- NOTE | 2016-08-12 11:09 | Progress Note-Hospitalist ---
Standard Progress Note Progress Notes/Assess & Plan Date Seen 08/12/16 Assess & Plan/Chief Complaint The patient is a 80-year-old white female known to me for many years. She fell and fractured her hip which has been repaired. She has been on rehabilitation since of last week. She has been troubled by loose stools since yesterday and her stool softener has been discontinued. 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 She is manage these well at home with lidocaine topical product. Physical therapy states that she is on schedule her injury. Physical exam: She is alert and oriented. Lungs are clear to auscultation. CV is regular without murmur. Impression: Recent hip fracture. 2.arthritic pain/sciatica Plan: Continue PT. Add topical lidocaine. EDGAR JEWELL MD August 12, 2016 11:09
[2016-08-12] MEDS ORDERED: LIDOCAINE 5% TOP PRN (11:15)
--- NOTE | 2016-08-12 11:55 | Occupational Ther Daily Note ---
OT Current Status-Daily Note Subjective Pt sitting in chair, agrees to treatment. Pt reports 8/10 pain in right LE. Pt c /o nausea this morning, RN is aware. Mental Status/Objective Functional [place] Measure 0=Not Assessed/NA 4=Minimal Assistance 1=Total Assistance 5=Supervision or Setup 2=Maximal Assistance 6=Modified [place] 3=Moderate Assistance 7=Complete [place] ADL-Treatment Pt declined bathing this morning. Don pullover shirt with set up. Pt used adaptive equipment for LE dressing. Donned underwear and pants with supervision for balance during pant hike using FWW. Pt donned socks with set up using sock aid. Pt requires increased time and several rest breaks secondary to c/o nausea. Sit to stand with supervision. Gait to restroom with FWW. Pt completed grooming tasks at sink with SBA. Pt initially standing during grooming, but finished while seated secondary to c/o fatigue and nausea. Toilet transfer with SBA. Pt able to complete toileting hygiene and clothing management with SBA. Transfer to chair with supervision. Functional [place] Measure 0=Not Assessed/NA 4=Minimal Assistance 1=Total Assistance 5=Supervision or Setup 2=Maximal Assistance 6=Modified [place] 3=Moderate Assistance 7=Complete IndependenceIRFPAI Quality Coding Scale 6 Independent with activity with or without an assistive device 5 Patient requires set up or clean up by helper. Patient completes activity by themselves 4 Supervision or touching assist (CGA). [place] provide cues , steadying assist 3 The helper provides less than half the effort to complete the activity 2 The helper provides more than half the effort to complete the activity 1 Dependent. The helper does all the effort to complete an activity 7 Patient refused to complete or attempt activity 9 The patient did not perform the activity before the current illness or injury 88 Not attempted due to Medical conditions or safety concerns Grooming (FIM): 5 Upper Body (FIM): 5 Lower Body Dressing (FIM): 5 On/Off Footwear (QC): 5 Toileting (FIM): 5 Toilet/Commode Transfer (FIM): 5 Other Treatment Pt completed bilateral UE exercises to promote increased strength and activity tolerance needed for ADLs and transfers. Pt performed shoulder flexion, abduction, biceps curls, and triceps extension exercises x20 reps with moderate resistance(red) theraband. Brief rest breaks taken between exercises. Pt sitting in chair with needs met after session. OT Short Term Goals Short Term Goals Time Frame: Aug 21, 2016 Bathing(FIM): 5 Upper Body Dressing(FIM): 5 Lower Body Dressing(FIM): 5 Toileting(FIM): 5 Toilet/Commode Transfer(FIM): 5 Shower Transfer(FIM): 5 Additional Short Term Goals: 1-Demonstrate ADL Tasks, 2-Verbalize Understanding , 3-ImproveStrength/Indy 1=Demonstrate adherence to instructed precautions during ADL tasks. 2=Patient will verbalize/demonstrate understanding of assistive devices/ modifications for ADL. 3=Patient will improve strength/tolerance for activity to enable patient to perform ADL's. OT Halfway Goals Chemical Tester Goals Time Frame: Aug 28, 2016 Eating (FIM): 6 Eating (QC): 6 Groomin Oral Hygiene (QC): 6 Bathing(FIM): 5 Shower/Bathe Self (QC): 5 Upper Body Dressing(FIM): 6 Upper Body Dressing (QC): 6 Lower Body Dressing(FIM): 6 Lower Body Dressing (QC): 6 On/Off Footwear (QC): 6 Toileting(FIM): 6 Toileting Hygiene (QC): 6 Toilet/Commode Transfer(FIM): 6 Toilet/Commode Transfer (QC): 6 Shower Transfer(FIM): 5 Additional Goals: 1-Demonstrate ADL Tasks, 2-Verbalize Understanding, 3- ImproveStrength/Indy 1=Demonstrate adherence to instructed precautions during ADL tasks. 2=Patient will verbalize/demonstrate understanding of assistive devices/ modifications for ADL. 3=Patient will improve strength/tolerance for activity to enable patient to perform ADL's. OT Education/Plan Problem List/Assessment Pt demonstrates decreased ADL functioning, mobility, strength, and activity tolerance. Pt to benefit from skilled OT intervention for ADL training, transfers, strengthening, adaptive equipment training, and home safety education to maximize level of function and allow safe return home. Discharge Recommendations Plan/Recommendations: Continue POC Treatment Plan/Plan of Care Patient would benefit from OT for education, treatment and training to promote independence in ADL's, mobility, safety and/or upper extremity function for ADL' s. Plan of Care: ADL Retraining, Functional Mobility, Group Exercise/Act as Ind, UE Funct Exercise/Act Treatment Duration: Aug 28, 2016 Visits Per Week: 10-12 Minutes/Day (M-F): 60-90 Minutes/Day (Sat/Gray): PRN Agreement: Yes Rehab Potential: Good Time/GCodes Start Time: 08:00 Stop Time: 09:30 Total Time Billed (hr/min): 90 Billed Treatment Time 1 visit, ADLx5(70minutes), EX(20minutes) REMY HURD OT August 12, 2016 11:55
--- NOTE | 2016-08-12 14:37 | Physical Therapy Daily Note ---
PT Daily Note-Current Subjective Patient agrees to PT. Patient rates pain 8/10. RN notified Pain Numeric Pain Scale: 10-Worst Possible Pain Location: Right Location Body Site: Hip Pain Description: Ache Mental Status Patient Orientation: Normal For Age Transfers Functional [place] Measure 0=Not Assessed/NA 4=Minimal Assistance 1=Total Assistance 5=Supervision or Setup 2=Maximal Assistance 6=Modified [place] 3=Moderate Assistance 7=Complete IndependenceIRFPAI Quality Coding Scale 6 Independent with activity with or without an assistive device 5 Patient requires set up or clean up by helper. Patient completes activity by themselves 4 Supervision or touching assist (CGA). [place] provide cues , steadying assist 3 The helper provides less than half the effort to complete the activity 2 The helper provides more than half the effort to complete the activity 1 Dependent. The helper does all the effort to complete an activity 7 Patient refused to complete or attempt activity 9 The patient did not perform the activity before the current illness or injury 88 Not attempted due to Medical conditions or safety concerns Transfers (B, C, W/C) (FIM): 4 Scootin Rollin Roll Left to Right (QC): 5 Supine to/from Sit: 4 Sit to/from Stand: 5 Sit to Lying (QC): 4 Sit to Stand (QC): 5 assist with right LE into bed Weight Bearing Weight Bearing Restriction: Weight Bearing/Tolerated Location Restriction: R LE Gait Training Does the Patient Walk?: Yes Gait (FIM): 5 Distance (FIM): 3=150 ft Distance: 200' Walk 10 feet (QC): 5 Walk 50 ft with 2 Turns(QC): 5 Walk 150 ft (QC): 5 Gait Level of Assist: 5 Gait Assistive Device: FWW slow, antalgic; frequent stops due to right hip pain Exercises Supine Ex: Ankle pumps, Quad Set, Heel Slides, Straight leg raise Supine Reps: 10 Seated Therapy Exercises: Ankle pumps, Long arc quads Standing Reps: 10 AAROM right LE exercises Assessment Patient tolerated treatment well and returned to bed with needs met. Patient self limits with gross motor skills due to pain per patient report. PT Short Term Goals Short Term Goals Time Frame: August 14, 2016 Gait (FIM): 4 Distance (FIM): 3=150 ft Gait Assistive Device: FWW PT English Drawer Goals English Drawer Goals PT Fci Goals Time Frame: Aug 21, 2016 Transfers (B,C,W/C) (FIM): 6 Sit to Lying (QC): 6 Lying-Sitting on Side/Bed(QC): 6 Sit to Stand (QC): 6 Rollin Roll Left to Right (QC): 6 Chair/Ufb-ia-Blytd Xfer(QC): 6 Car Transfer (QC): 5 Does the Patient Walk: Yes Gait (FIM): 6 Gait distance (FIM): 3=150 ft Walk 10 feet (QC): 6 Walk 10ft-Uneven Surface(QC): 6 Walk 50ft with 2 Turns (QC): 6 Walk 150 ft (QC): 6 Gait Assistive Device: FWW Does the Pt use WC or Scooter?: No Stairs (FIM): 2 # of Steps: 4 1 Step (curb) (QC): 4 4 Steps (QC): 4 12 Steps (QC): 88 Picking up an Object (QC): 4 PT Plan Treatment/Plan Treatment Plan: Continue Plan of Care Treatment Plan: Bed Mobility, Education, Functional Activity Indy, Functional Strength, Group Therapy, Gait, Safety, Therapeutic Exercise, Transfers Treatment Duration: Aug 21, 2016 Visits Per Week: 10-15 Minutes/Day (M-F): 60-90 Minutes/Day (Sat/Gray): prn Time/GCodes Time In: 1405 Time Out: 1435 Total Billed Treatment Time: 30 Total Billed Treatment 1 visit EX 20 min GT 10 min CHIRAG TRIVEDI PT August 12, 2016 14:37
[2016-08-12] MEDS: LIDOCAINE TOPICAL 4% 50 ML BTL TP PRN ×2 (16:55→20:57)
[2016-08-12 18:25] VITALS: BP 143/75
[2016-08-13 06:00] VITALS: BP 144/76
[2016-08-13] MEDS: PANTOPRAZOLE 20 MG TABLET (PROTONIX) PO SCH (06:17)
[2016-08-13] MEDS: ACETAMINOPHEN 500 MG TAB (TYLENOL) PO SCH ×3 (06:18→21:08)
[2016-08-13] MEDS: CATHETER FLUSH 10 ML SYR IV SCH ×3 (06:18→21:08)
[2016-08-13] MEDS: GABAPENTIN 100 MG (NEURONTIN) CAP PO SCH ×2 (07:54→21:07)
[2016-08-13] MEDS: ASPIRIN E.C. 325 MG (ECOTRIN) TABLET PO SCH (07:54)
[2016-08-13] MEDS: SENNA W/DOCUSATE (SENOKOT S) TABLET PO SCH (07:59)
[2016-08-13] MEDS: METOCLOPRAMIDE INJ 10 MG/2 ML (REGLAN) IV PRN (08:10)
--- NOTE | 2016-08-13 08:30 | Cardiology Progress Note ---
Subjective Subjective/Events-last exam Patient is in bed, complains of some abdominal cramping. Denies any CP or palpitations. Review of Systems General: No Night Sweats, Fatigue, Malaise HEENT: No Visual Changes, No Dysphasia, No Sore Throat Pulmonary: No Dyspnea, No Cough Cardiovascular: No: Chest Pain, Edema, Palpitations, Paroxysmal Noc. Dyspnea Gastrointestinal: No: Abdominal Pain, Nausea, Vomiting Genitourinary: No Dysuria, No Frequency Musculoskeletal: No: back pain, neck pain Neurological: No: Change in speech, Confusion, Numbness, Weakness Objective-Cardiology Exam Last Set of Vital Signs Vital Signs 08/13/16 06:00 Temp 98.2 Pulse 67 Resp 20 B/P (MAP) 144/76 Pulse Ox 97 Capillary Refill : Less Than 3 Seconds I&O Intake and Output 08/13/16 00:00 Intake Total 2140 ml Balance 2140 ml Intake Oral 2140 ml # Voids 7 General: Alert, Oriented X3, Cooperative, No Acute Distress HEENT: Atraumatic, PERRLA, EOMI, Mucous Memb Moist/[place] Neck: Supple, No JVD Lungs: Clear to Auscultation Heart: Regular Rate, Normal S1, Normal S2 Abdomen: Normal Bowel Sounds, Soft, No Tenderness Extremities: No Clubbing, No Edema Skin: No Rashes, Other (dressing at right hip) Neuro: Other (weakness at affected leg proximally and generalized weakness otherwise) A/P-Cardiology Admission Diagnosis Right hip fracture Palpitations HTN JAY Assessment/Plan R hip fracture, s/p repair on 08/05/[address] Smith. Continue with PT. Chronic palpitations for which she has undergone a cardiac work up in the past including Holter monitor done in October 2014 which revealed episodes of PVCs, PACs. SEEQ monitor in July 2015 revealed sinus rhythm with occasional sinus bradycardia, asymptomatic. No frequent PVCs. No A Fib documented. Tolerating Toprol XL well at this time. continue to monitor on telemetry, no arrhythmia was detected Previous cardiac work up: Stress test done December 2014 revealed no ischemia or infarct with normal EF. 2-D echocardiogram in Nov 2014 within normal limits. Holter monitor in Oct 2014 as documented above Hypertension, by history. Continue to monitor BP/HR. 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 Carotid artery stenosis, mild non obstructive disease per carotid u/s Jan 2016, continue to monitor. TSH normal on 08/10/16 Clinical Quality Measures DVT/VTE Risk/Contraindication: Risk Factor Score Per Nursin RFS Level Per Nursing on Admit: 4+=Very High NIDA CHAMPAGNE August 13, 2016 08:30
--- NOTE | 2016-08-13 10:45 | Physical Therapy Daily Note ---
PT Daily Note-Current Subjective Pt is coming out from restroom with Aide's help upon arrival. Pt agreed to PT. Pain Numeric Pain Scale: 8 Location: Right Location Body Site: Hip Pain Description: Ache Comment: Pt described pain as Sciatic running from LB down through R foot. Mental Status Patient Orientation: Person, Place, Time, Situation Transfers Functional [place] Measure 0=Not Assessed/NA 4=Minimal Assistance 1=Total Assistance 5=Supervision or Setup 2=Maximal Assistance 6=Modified [place] 3=Moderate Assistance 7=Complete IndependenceIRFPAI Quality Coding Scale 6 Independent with activity with or without an assistive device 5 Patient requires set up or clean up by helper. Patient completes activity by themselves 4 Supervision or touching assist (CGA). [place] provide cues , steadying assist 3 The helper provides less than half the effort to complete the activity 2 The helper provides more than half the effort to complete the activity 1 Dependent. The helper does all the effort to complete an activity 7 Patient refused to complete or attempt activity 9 The patient did not perform the activity before the current illness or injury 88 Not attempted due to Medical conditions or safety concerns Scootin Sit to/from Stand: 5 Sit to Lying (QC): 4 Sit to Stand (QC): 5 Weight Bearing Weight Bearing Restriction: Full Weight Bearing Location Restriction: LE Bilateral Gait Training Does the Patient Walk?: Yes Distance (FIM): 3=150 ft Distance: 175' Walk 10 feet (QC): 5 Walk 50 ft with 2 Turns(QC): 5 Walk 150 ft (QC): 5 Gait Level of Assist: 5 Gait Persons Needed: 1 Gait Assistive Device: FWW Pt walks with antalgic gait pattern and fatigues easy. PT walks at close SBA while ambulating due to pt reports periods of dizziness. Wheelchair Training Does the Pt Use a Wheelchair?: No Exercises Seated Therapy Exercises: Ankle pumps, Long arc quads, Hip flexion, Kicking activity Seated Reps: 15 Standing: Hip Abduction, Hamstring curls, Heel/toe raises, Mini squats Standing Reps: 15 NuStep Minutes: 15 NuStep Workload: 5 Treatments Pt transfers at SBA using FWW from sit to stand. Pt ambulates using FWW at close SBA. Pt uses NuStep for 15m at Workload 5 and completes both Standing Ex at //bars and Seated Ex in chair for strengthening and activity tolerance to help promote/increase balance with upright activities. Pt returns to room after ambulation to rest in recliner at end of tx with all needs met. Assessment Current Status: Fair Progress Pt fatigues easy and needs rest breaks. Pt's strength and activity tolerance are improving but pt still has periods if dizziness that would affect balance. PT Short Term Goals Short Term Goals Time Frame: August 14, 2016 Gait (FIM): 4 Distance (FIM): 3=150 ft Gait Assistive Device: FWW PT Tree And Shrub Technician Goals Tree And Shrub Technician Goals PT Tree And Shrub Technician Goals Time Frame: Aug 21, 2016 Transfers (B,C,W/C) (FIM): 6 Sit to Lying (QC): 6 Lying-Sitting on Side/Bed(QC): 6 Sit to Stand (QC): 6 Rollin Roll Left to Right (QC): 6 Chair/Joo-zu-Bsreq Xfer(QC): 6 Car Transfer (QC): 5 Does the Patient Walk: Yes Gait (FIM): 6 Gait distance (FIM): 3=150 ft Walk 10 feet (QC): 6 Walk 10ft-Uneven Surface(QC): 6 Walk 50ft with 2 Turns (QC): 6 Walk 150 ft (QC): 6 Gait Assistive Device: FWW Does the Pt use WC or Scooter?: No Stairs (FIM): 2 # of Steps: 4 1 Step (curb) (QC): 4 4 Steps (QC): 4 12 Steps (QC): 88 Picking up an Object (QC): 4 PT Plan Problem List Problem List: Activity Tolerance, Functional Strength, Safety, Balance, Gait, Transfer Treatment/Plan Treatment Plan: Continue Plan of Care Treatment Plan: Bed Mobility, Education, Functional Activity Indy, Functional Strength, Group Therapy, Gait, Safety, Therapeutic Exercise, Transfers Treatment Duration: Aug 21, 2016 Visits Per Week: 10-15 Minutes/Day (M-F): 60-90 Minutes/Day (Sat/Gray): prn Safety Risks/Education Patient Education: Gait Training, Transfer Techniques, Correct Positioning, Safety Issues Teaching Recipient: Patient Teaching Methods: Discussion Response to Teaching: Verbalize Understanding Time/GCodes Time In: 930 Time Out: 1030 Total Billed Treatment Time: 60 Total Billed Treatment visit, EX X2 (30m), GT (15m) & FA (15m) TREMARIANNE ADAMS PTA August 13, 2016 10:44
--- NOTE | 2016-08-13 11:26 | Occupational Ther Daily Note ---
OT Current Status-Daily Note Subjective Pt sitting in chair agrees to treatment. Pt reports 8/10 right hip pain. Mental Status/Objective Functional [place] Measure 0=Not Assessed/NA 4=Minimal Assistance 1=Total Assistance 5=Supervision or Setup 2=Maximal Assistance 6=Modified [place] 3=Moderate Assistance 7=Complete [place] ADL-Treatment Pt would like to shower this morning. Sit to stand with supervision. Gait to restroom with FWW. Transfer to walk in shower with supervision using grab bars. Pt doffed gown without assist and doffed socks using dressing stick. Seated shower completed with SBA. Used long handled sponge to wash lower legs and feet. Stood with supervision using grab bars for balance while washing buttocks. Able to dry all areas with SBA. Pt donned bra and pullover shirt with set up. Don underwear and pants using signal inspector to start over feet. Stood with supervision for balance during pant hike. Don socks with SBA using sock aid. Grooming tasks completed standing at sink. Pt brushed teeth and combed hair with supervision for balance while standing. Pt requires increased time for all ADL tasks secondary to fatigue and c/o nausea/dizziness. Frequent rest breaks taken during session. Transfer to chair with supervision using FWW. Functional [place] Measure 0=Not Assessed/NA 4=Minimal Assistance 1=Total Assistance 5=Supervision or Setup 2=Maximal Assistance 6=Modified [place] 3=Moderate Assistance 7=Complete IndependenceIRFPAI Quality Coding Scale 6 Independent with activity with or without an assistive device 5 Patient requires set up or clean up by helper. Patient completes activity by themselves 4 Supervision or touching assist (CGA). [place] provide cues , steadying assist 3 The helper provides less than half the effort to complete the activity 2 The helper provides more than half the effort to complete the activity 1 Dependent. The helper does all the effort to complete an activity 7 Patient refused to complete or attempt activity 9 The patient did not perform the activity before the current illness or injury 88 Not attempted due to Medical conditions or safety concerns Grooming (FIM): 5 Bathing (FIM): 5 Shower/Bathe Self (QC): 4 Upper Body (FIM): 5 Upper Body Dressing (QC): 5 Lower Body Dressing (FIM): 5 Lower Body Dressing (QC): 4 On/Off Footwear (QC): 5 Shower Transfer(FIM): 5 Other Treatment Pt completed bilateral UE exercises to increase strength needed for ADLs and transfers. Pt performed shoulder flexion, forward press, biceps curls, and wrist flex/ext x20 reps with 1# dowel quita. Rest breaks between exercises. Pt sitting in chair with needs met after session. OT Short Term Goals Short Term Goals Time Frame: Aug 21, 2016 Bathing(FIM): 5 Upper Body Dressing(FIM): 5 Lower Body Dressing(FIM): 5 Toileting(FIM): 5 Toilet/Commode Transfer(FIM): 5 Shower Transfer(FIM): 5 Additional Short Term Goals: 1-Demonstrate ADL Tasks, 2-Verbalize Understanding , 3-ImproveStrength/Indy 1=Demonstrate adherence to instructed precautions during ADL tasks. 2=Patient will verbalize/demonstrate understanding of assistive devices/ modifications for ADL. 3=Patient will improve strength/tolerance for activity to enable patient to perform ADL's. OT Outpatient Receptionist Goals [facility] Goals Time Frame: Aug 28, 2016 Eating (FIM): 6 Eating (QC): 6 Groomin Oral Hygiene (QC): 6 Bathing(FIM): 5 Shower/Bathe Self (QC): 5 Upper Body Dressing(FIM): 6 Upper Body Dressing (QC): 6 Lower Body Dressing(FIM): 6 Lower Body Dressing (QC): 6 On/Off Footwear (QC): 6 Toileting(FIM): 6 Toileting Hygiene (QC): 6 Toilet/Commode Transfer(FIM): 6 Toilet/Commode Transfer (QC): 6 Shower Transfer(FIM): 5 Additional Goals: 1-Demonstrate ADL Tasks, 2-Verbalize Understanding, 3- ImproveStrength/Indy 1=Demonstrate adherence to instructed precautions during ADL tasks. 2=Patient will verbalize/demonstrate understanding of assistive devices/ modifications for ADL. 3=Patient will improve strength/tolerance for activity to enable patient to perform ADL's. OT Education/Plan Problem List/Assessment Pt demonstrates decreased ADL functioning, mobility, strength, and activity tolerance. Pt to benefit from skilled OT intervention for ADL training, transfers, strengthening, adaptive equipment training, and home safety education to maximize level of function and allow safe return home. Discharge Recommendations Plan/Recommendations: Continue POC Treatment Plan/Plan of Care Patient would benefit from OT for education, treatment and training to promote independence in ADL's, mobility, safety and/or upper extremity function for ADL' s. Plan of Care: ADL Retraining, Functional Mobility, Group Exercise/Act as Ind, UE Funct Exercise/Act Treatment Duration: Aug 28, 2016 Visits Per Week: 10-12 Minutes/Day (M-F): 60-90 Minutes/Day (Sat/Gray): PRN Agreement: Yes Rehab Potential: Good Time/GCodes Start Time: 08:00 Stop Time: 09:30 Total Time Billed (hr/min): 90 Billed Treatment Time 1 visit, ADLx5(75minutes), EX(15minutes) REMY HURD OT August 13, 2016 11:26
[2016-08-13] MEDS: LIDOCAINE TOPICAL 4% 50 ML BTL TP PRN ×2 (11:45→21:09)
[2016-08-13] MEDS: NYSTATIN CREAM (MYCOSTATIN) 30 GM TUBE TP SCH ×2 (11:49→21:08)
--- NOTE | 2016-08-13 12:01 | Physical Therapy Daily Note ---
PT Daily Note-Current Subjective Pt was laying Supine in bed upon arrival. PT asked if pt would feel up for tx again and pt agreed that she had rested and would be up for tx again. Pain Numeric Pain Scale: 7 Location: Right Location Body Site: Hip Pain Description: Ache Comment: Pt still having Sciatic pain from LB down R side to foot. Mental Status Patient Orientation: Person, Place, Time, Situation Transfers Functional [place] Measure 0=Not Assessed/NA 4=Minimal Assistance 1=Total Assistance 5=Supervision or Setup 2=Maximal Assistance 6=Modified [place] 3=Moderate Assistance 7=Complete IndependenceIRFPAI Quality Coding Scale 6 Independent with activity with or without an assistive device 5 Patient requires set up or clean up by helper. Patient completes activity by themselves 4 Supervision or touching assist (CGA). [place] provide cues , steadying assist 3 The helper provides less than half the effort to complete the activity 2 The helper provides more than half the effort to complete the activity 1 Dependent. The helper does all the effort to complete an activity 7 Patient refused to complete or attempt activity 9 The patient did not perform the activity before the current illness or injury 88 Not attempted due to Medical conditions or safety concerns Scootin Rollin Roll Left to Right (QC): 4 Supine to/from Sit: 4 Sit to/from Stand: 5 Sit to Stand (QC): 5 Weight Bearing Weight Bearing Restriction: Full Weight Bearing Location Restriction: LE Bilateral Gait Training Does the Patient Walk?: Yes Distance (FIM): 3=150 ft Distance: 150' Walk 10 feet (QC): 5 Walk 50 ft with 2 Turns(QC): 5 Walk 150 ft (QC): 5 Gait Level of Assist: 5 Gait Persons Needed: 1 Gait Assistive Device: FWW Pt walks with antalgic gait and fatigues easy needing rest breaks. Pt puts a lot of pressure through UE to take weight from LE and PT encouraged more LE WB. Wheelchair Training Does the Pt Use a Wheelchair?: No Treatments Pt transferred from Supine to EOB at Min A/DRAFTSPERSON to sit up then EOB to Standing Ex at SBA. Pt ambulated in [facility] using FWW at close SBA for dizziness. PT gave pt education on transfers from chairs as well as how pt can use LLE to hook RLE and lift leg like pt needs to lift into bed. Pt returned to room for pain ointment which Nurse applied. Pt stood at chair for several minutes while ointment applied. Pt transferred to sitting in recliner at end of tx with all needs met. Assessment Current Status: Fair Progress Pt still struggles with dizziness/balance as well as fatigues easy. PT Short Term Goals Short Term Goals Time Frame: August 14, 2016 Gait (FIM): 4 Distance (FIM): 3=150 ft Gait Assistive Device: FWW PT Salesperson [employer] Goals Salesperson [employer] Goals PT M[facility] Goals Time Frame: Aug 21, 2016 Transfers (B,C,W/C) (FIM): 6 Sit to Lying (QC): 6 Lying-Sitting on Side/Bed(QC): 6 Sit to Stand (QC): 6 Rollin Roll Left to Right (QC): 6 Chair/Bud-eu-Xwhpy Xfer(QC): 6 Car Transfer (QC): 5 Does the Patient Walk: Yes Gait (FIM): 6 Gait distance (FIM): 3=150 ft Walk 10 feet (QC): 6 Walk 10ft-Uneven Surface(QC): 6 Walk 50ft with 2 Turns (QC): 6 Walk 150 ft (QC): 6 Gait Assistive Device: FWW Does the Pt use WC or Scooter?: No Stairs (FIM): 2 # of Steps: 4 1 Step (curb) (QC): 4 4 Steps (QC): 4 12 Steps (QC): 88 Picking up an Object (QC): 4 PT Plan Problem List Problem List: Activity Tolerance, Functional Strength, Safety, Balance, Gait, Transfer Treatment/Plan Treatment Plan: Continue Plan of Care Treatment Plan: Bed Mobility, Education, Functional Activity [place], Functional Strength, Group Therapy, Gait, Safety, Therapeutic Exercise, Transfers Treatment Duration: Aug 21, 2016 Visits Per Week: 10-15 Minutes/Day (M-F): 60-90 Minutes/Day (Sat/Gray): prn Safety Risks/Education Patient Education: Gait Training, Transfer Techniques, Correct Positioning, Safety Issues Teaching Recipient: Patient Teaching Methods: Discussion Response to Teaching: Verbalize Understanding Time/GCodes Time In: 1115 Time Out: 1145 Total Billed Treatment Time: 30 Total Billed Treatment visit, GT (15m) & FA (15m) MARIANNE KNAPP PTA August 13, 2016 12:01
--- NOTE | 2016-08-13 15:14 | Cardiology Progress Note ---
Subjective Subjective/Events-last exam Patient is laying down in bed, feeling better, no further episodes of palpitation, no chest pain. Review of Systems General: No Chills, No Night Sweats, No Fatigue, No Malaise, No Appetite, No Other HEENT: No Head Aches, No Visual Changes, No Eye Pain, No Ear Pain, No Dysphasia , No Sinus Congestion, No Post Nasal Drip, No Sore Throat, No Other Pulmonary: No Dyspnea, No Cough, No Pleuritic Chest Pain, No Other Cardiovascular: No: Chest Pain, Edema, Lt Headedness, Orthopnea, Other, Palpitations, Paroxysmal Noc. Dyspnea Objective-Cardiology Exam Last Set of Vital Signs Vital Signs 08/13/16 06:00 Temp 98.2 Pulse 67 Resp 20 B/P (MAP) 144/76 Pulse Ox 97 Capillary Refill : Less Than 3 Seconds I&O Intake and Output 08/13/16 00:00 Intake Total 2140 ml Balance 2140 ml Intake Oral 2140 ml # Voids 7 General: Alert, Oriented X3, Cooperative, No Acute Distress HEENT: Atraumatic, PERRLA, EOMI, Mucous Memb Moist/[place] Neck: Supple, No JVD Lungs: Clear to Auscultation Heart: Regular Rate, Normal S1, Normal S2 Abdomen: Normal Bowel Sounds, Soft, No Tenderness Extremities: No Clubbing, No Edema Skin: No Rashes, Other (dressing at right hip) Neuro: Other (weakness at affected leg proximally and generalized weakness otherwise) A/P-Cardiology Admission Diagnosis Right hip fracture Palpitations HTN JAY Assessment/Plan R hip fracture, s/p repair on 08/05/[address] Smith. Continue with PT. Chronic palpitations for which she has undergone a cardiac work up in the past including Holter monitor done in October 2014 which revealed episodes of PVCs, PACs. SEEQ monitor in July 2015 revealed sinus rhythm with occasional sinus bradycardia, asymptomatic. No frequent PVCs. No A Fib documented. Tolerating Toprol XL well at this time. continue to monitor on telemetry, no arrhythmia was detected, I will stop her telemetry Previous cardiac work up: Stress test done December 2014 revealed no ischemia or infarct with normal EF. 2-D echocardiogram in Nov 2014 within normal limits. Holter monitor in Oct 2014 as documented above Hypertension, by history. Continue to monitor BP/HR. 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 Carotid artery stenosis, mild non obstructive disease per carotid u/s Jan 2016, continue to monitor. TSH normal on 08/10/16 Clinical Quality Measures DVT/VTE Risk/Contraindication: Risk Factor Score Per Nursin RFS Level Per Nursing on Admit: 4+=Very High GERARD SHUKLA MD August 13, 2016 15:14
[2016-08-13 17:58] VITALS: BP 144/72
[2016-08-14 05:00] VITALS: BP 161/75
[2016-08-14] MEDS: ACETAMINOPHEN 500 MG TAB (TYLENOL) PO SCH ×3 (06:31→21:01)
[2016-08-14] MEDS: PANTOPRAZOLE 20 MG TABLET (PROTONIX) PO SCH (06:31)
[2016-08-14] MEDS: CATHETER FLUSH 10 ML SYR IV SCH ×3 (06:31→21:03)
--- NOTE | 2016-08-14 08:11 | Cardiology Progress Note ---
Subjective Subjective/Events-last exam Patient is asleep in bed, easily awakens to answer questions. Denies any CP or dyspnea. Review of Systems General: No Night Sweats, No Fatigue, No Malaise HEENT: No Visual Changes, No Dysphasia, No Sore Throat Pulmonary: No Dyspnea, No Cough, No Pleuritic Chest Pain Cardiovascular: No: Chest Pain, Edema, Palpitations, Paroxysmal Noc. Dyspnea Gastrointestinal: No: Abdominal Pain, Constipation, Nausea, Vomiting Genitourinary: No Dysuria, No Frequency Musculoskeletal: No: back pain, neck pain Neurological: No: Change in speech, Confusion, Numbness, Weakness Objective-Cardiology Exam Last Set of Vital Signs Vital Signs 08/14/16 05:00 Temp 98.2 Pulse 71 Resp 18 B/P (MAP) 161/75 Pulse Ox 99 Capillary Refill : Less Than 3 Seconds I&O Intake and Output 08/14/16 00:00 Intake Total 1930 ml Balance 1930 ml Intake Oral 1930 ml # Voids 8 General: Alert, Oriented X3, Cooperative, No Acute Distress HEENT: Atraumatic, PERRLA, EOMI, Mucous Memb Moist/[place] Neck: Supple, No JVD Lungs: Clear to Auscultation Heart: Regular Rate, Normal S1, Normal S2 Abdomen: Normal Bowel Sounds, Soft, No Tenderness Extremities: No Clubbing, No Edema Skin: No Rashes, Other (dressing at right hip) Neuro: Other (weakness at affected leg proximally and generalized weakness otherwise) A/P-Cardiology Admission Diagnosis Right hip fracture Palpitations HTN JAY Assessment/Plan R hip fracture, s/p repair on 08/05/[address] Smith. Continue with PT. Chronic palpitations for which she has undergone a cardiac work up in the past including Holter monitor done in October 2014 which revealed episodes of PVCs, PACs. SEEQ monitor in July 2015 revealed sinus rhythm with occasional sinus bradycardia, asymptomatic. No frequent PVCs. No A Fib documented. Tolerating Toprol XL well at this time. Previous cardiac work up: Stress test done December 2014 revealed no ischemia or infarct with normal EF. 2-D echocardiogram in Nov 2014 within normal limits. Holter monitor in Oct 2014 as documented above Hypertension, by history. Continue to monitor BP/HR. 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 Carotid artery stenosis, mild non obstructive disease per carotid u/s Jan 2016, continue to monitor. TSH normal on 08/10/16 Clinical Quality Measures DVT/VTE Risk/Contraindication: Risk Factor Score Per Nursin RFS Level Per Nursing on Admit: 4+=Very High Supervisory-Addendum Brief Supervisory Addendum Participated in pt care: history, MDM Personally performed: history Care discussed with: PA Results interpretation: agree Notes: I have seen and evaluated the patient and agree with plan, she is feeling better , no further episodes of palpitations, I will sign off, Dr Bond is covering me NIDA CHAMPAGNE August 14, 2016 08:11 GERARD SHUKLA MD August 14, 2016 08:28
[2016-08-14] MEDS: NYSTATIN CREAM (MYCOSTATIN) 30 GM TUBE TP SCH ×3 (08:43→21:03)
[2016-08-14] MEDS: LIDOCAINE TOPICAL 4% 50 ML BTL TP PRN ×2 (08:43→21:03)
[2016-08-14] MEDS: GABAPENTIN 100 MG (NEURONTIN) CAP PO SCH ×2 (08:54→21:02)
[2016-08-14] MEDS: ASPIRIN E.C. 325 MG (ECOTRIN) TABLET PO SCH (08:55)
[2016-08-14] MEDS: SENNA W/DOCUSATE (SENOKOT S) TABLET PO SCH (08:58)
[2016-08-14 09:17] VITALS: BP 130/67
--- NOTE | 2016-08-14 09:28 | Occupational Ther Daily Note ---
OT Current Status-Daily Note Subjective Pt in bed, agrees to treatment. Pt reports 7/10 right hip and "sciatic" pain. Mental Status/Objective Functional [place] Measure 0=Not Assessed/NA 4=Minimal Assistance 1=Total Assistance 5=Supervision or Setup 2=Maximal Assistance 6=Modified [place] 3=Moderate Assistance 7=Complete [place] ADL-Treatment Pt declined bathing today, would like to get dressed. Supine to sit with minimal assistance and cues for technique. Sit to stand with supervision. Gait to restroom with FWW, no LOB noted. [place] completed [place] [facility] [place] with SBA using grab bars for safety. Pt able to complete toileting hygiene and clothing management with SBA. Pt stood at sink to wash hands, comb hair and brush teeth with modified independence. Transfer to chair with supervision. Don bra and pullover shirt with set up. Pt donned underwear and pants with SBA for balance during pant hike. Uses adaptive equipment to start pants over feet. Total assist to don JAMES hose. Pt donned socks with set up using sock aid. Increased time required for ADL tasks. Functional [place] Measure 0=Not Assessed/NA 4=Minimal Assistance 1=Total Assistance 5=Supervision or Setup 2=Maximal Assistance 6=Modified [place] 3=Moderate Assistance 7=Complete IndependenceIRFPAI Quality Coding Scale 6 Independent with activity with or without an assistive device 5 Patient requires set up or clean up by helper. Patient completes activity by themselves 4 Supervision or touching assist (CGA). [place] provide cues , steadying assist 3 The helper provides less than half the effort to complete the activity 2 The helper provides more than half the effort to complete the activity 1 Dependent. The helper does all the effort to complete an activity 7 Patient refused to complete or attempt activity 9 The patient did not perform the activity before the current illness or injury 88 Not attempted due to Medical conditions or safety concerns Grooming (FIM): 6 Oral Hygiene (QC): 6 Upper Body (FIM): 5 Upper Body Dressing (QC): 5 Lower Body Dressing (FIM): 5 Lower Body Dressing (QC): 4 On/Off Footwear (QC): 5 Toileting (FIM): 5 Toilet/Commode Transfer (FIM): 5 Other Treatment Pt performed gait to therapy gym with FWW, slow pace but no LOB. Arm bike x10 minutes to increase overall strength and activity tolerance needed for ADLs and transfers. Pt performed task with minimal resistance and slow pace. One rest break taken. Bilateral UE exercises completed to increase strength for functional tasks. Pt performed shoulder flexion, forward press, and biceps curls x20 reps with 1# dowel quita. Rest breaks between exercises. Pt returned to room, sitting in chair with needs met after session. OT Short Term Goals Short Term Goals Time Frame: Aug 21, 2016 Bathing(FIM): 5 Upper Body Dressing(FIM): 5 Lower Body Dressing(FIM): 5 Toileting(FIM): 5 Toilet/Commode Transfer(FIM): 5 Shower Transfer(FIM): 5 Additional Short Term Goals: 1-Demonstrate ADL Tasks, 2-Verbalize Understanding , 3-ImproveStrength/Indy 1=Demonstrate adherence to instructed precautions during ADL tasks. 2=Patient will verbalize/demonstrate understanding of assistive devices/ modifications for ADL. 3=Patient will improve strength/tolerance for activity to enable patient to perform ADL's. OT Dermatology Nurse Practitioner Goals [facility] Goals Time Frame: Aug 28, 2016 Eating (FIM): 6 Eating (QC): 6 Groomin Oral Hygiene (QC): 6 Bathing(FIM): 5 Shower/Bathe Self (QC): 5 Upper Body Dressing(FIM): 6 Upper Body Dressing (QC): 6 Lower Body Dressing(FIM): 6 Lower Body Dressing (QC): 6 On/Off Footwear (QC): 6 Toileting(FIM): 6 Toileting Hygiene (QC): 6 Toilet/Commode Transfer(FIM): 6 Toilet/Commode Transfer (QC): 6 Shower Transfer(FIM): 5 Additional Goals: 1-Demonstrate ADL Tasks, 2-Verbalize Understanding, 3- ImproveStrength/Indy 1=Demonstrate adherence to instructed precautions during ADL tasks. 2=Patient will verbalize/demonstrate understanding of assistive devices/ modifications for ADL. 3=Patient will improve strength/tolerance for activity to enable patient to perform ADL's. OT Education/Plan Problem List/Assessment Pt demonstrates decreased ADL functioning, mobility, strength, and activity tolerance. Pt to benefit from skilled OT intervention for ADL training, transfers, strengthening, adaptive equipment training, and home safety education to maximize level of function and allow safe return home. Discharge Recommendations Plan/Recommendations: Continue POC Treatment Plan/Plan of Care Patient would benefit from OT for education, treatment and training to promote independence in ADL's, mobility, safety and/or upper extremity function for ADL' s. Plan of Care: ADL Retraining, Functional Mobility, Group Exercise/Act as Ind, UE Funct Exercise/Act Treatment Duration: Aug 28, 2016 Visits Per Week: 10-12 Minutes/Day (M-F): 60-90 Minutes/Day (Sat/Gray): PRN Agreement: Yes Rehab Potential: Good Time/GCodes Start Time: 08:00 Stop Time: 09:30 Total Time Billed (hr/min): 90 Billed Treatment Time 1 visit, ADLx4(60minutes), EXx2(30minutes) REMY HURD OT August 14, 2016 09:27
--- NOTE | 2016-08-14 12:08 | Physical Therapy Daily Note ---
PT Daily Note-Current Subjective Pt sitting in recliner upon arrival. Pt reports pain in R hip that radiates down to foot (Sciatic). Pt also reports feeling as though she might have loose BM due to constipation med given. Pt agrees to PT. Pain Numeric Pain Scale: 8 Location: Right Location Body Site: Hip Pain Description: Throbbing Mental Status Patient Orientation: Person, Place, Situation Transfers Functional [place] Measure 0=Not Assessed/NA 4=Minimal Assistance 1=Total Assistance 5=Supervision or Setup 2=Maximal Assistance 6=Modified [place] 3=Moderate Assistance 7=Complete IndependenceIRFPAI Quality Coding Scale 6 Independent with activity with or without an assistive device 5 Patient requires set up or clean up by helper. Patient completes activity by themselves 4 Supervision or touching assist (CGA). [place] provide cues , steadying assist 3 The helper provides less than half the effort to complete the activity 2 The helper provides more than half the effort to complete the activity 1 Dependent. The helper does all the effort to complete an activity 7 Patient refused to complete or attempt activity 9 The patient did not perform the activity before the current illness or injury 88 Not attempted due to Medical conditions or safety concerns Scootin Supine to/from Sit: 4 Sit to/from Stand: 5 Sit to Lying (QC): 4 Sit to Stand (QC): 5 Chair/Zrf-ee-Jztyh Xfer(QC): 4 Bed to/from Chair: 4 Weight Bearing Weight Bearing Restriction: Full Weight Bearing Location Restriction: LE Bilateral Gait Training Does the Patient Walk?: Yes Distance (FIM): 3=150 ft Distance: 150' Walk 10 feet (QC): 4 Walk 50 ft with 2 Turns(QC): 4 Walk 150 ft (QC): 4 Gait Level of Assist: 4 Gait Persons Needed: 1 Gait Assistive Device: FWW Pt walks with antalgic gait and PT encouraged to increase WB through LE instead of UE. Wheelchair Training Does the Pt Use a Wheelchair?: No Exercises Seated Therapy Exercises: Ankle pumps, Long arc quads, Hip flexion, Kicking activity, Hip abd/add Seated Reps: 15 NuStep Minutes: 15 NuStep Workload: 5 Treatments Pt transfers from recliner using FWW at SBA. Pt ambulates using FWW at [facility]. Pt uses NuStep for 15m at Workload 5 then after short rest completes Seated Ex in chair to increase strength, activity tolerance and balance. Pt ambulates back to room to rest in recliner before deciding to transfer to Supine in bed. Pt is shown Seated Ex with Red Tband for resistance. Pt transfers from Standing to EOB at SBA then EOB to Supine at Min A to lift RLE into bed due to weakness. Pt rests in bed with all needs met at end of tx. Assessment Current Status: Fair Progress Pt continues to fatigue quickly and need rest breaks although recovery time is quicker. Pt still has episodes of dizziness especially with upright activity. PT Short Term Goals Short Term Goals Time Frame: August 14, 2016 Gait (FIM): 4 Distance (FIM): 3=150 ft Gait Assistive Device: FWW PT Senior Care Goals Senior Care Goals PT Senior Care Goals Time Frame: Aug 21, 2016 Transfers (B,C,W/C) (FIM): 6 Sit to Lying (QC): 6 Lying-Sitting on Side/Bed(QC): 6 Sit to Stand (QC): 6 Rollin Roll Left to Right (QC): 6 Chair/Xwc-ph-Lbevj Xfer(QC): 6 Car Transfer (QC): 5 Does the Patient Walk: Yes Gait (FIM): 6 Gait distance (FIM): 3=150 ft Walk 10 feet (QC): 6 Walk 10ft-Uneven Surface(QC): 6 Walk 50ft with 2 Turns (QC): 6 Walk 150 ft (QC): 6 Gait Assistive Device: FWW Does the Pt use WC or Scooter?: No Stairs (FIM): 2 # of Steps: 4 1 Step (curb) (QC): 4 4 Steps (QC): 4 12 Steps (QC): 88 Picking up an Object (QC): 4 PT Plan Problem List Problem List: Activity Tolerance, Functional Strength, Safety, Balance, Gait, Transfer Treatment/Plan Treatment Plan: Continue Plan of Care Treatment Plan: Bed Mobility, Education, Functional Activity Indy, Functional Strength, Group Therapy, Gait, Safety, Therapeutic Exercise, Transfers Treatment Duration: Aug 21, 2016 Visits Per Week: 10-15 Minutes/Day (M-F): 60-90 Minutes/Day (Sat/Gray): prn Safety Risks/Education Patient Education: Gait Training, Transfer Techniques, Correct Positioning, Safety Issues Teaching Recipient: Patient Teaching Methods: Discussion Response to Teaching: Verbalize Understanding Time/GCodes Time In: 1000 Time Out: 1100 Total Billed Treatment Time: 60 Total Billed Treatment visit, GT (15m), EX X2 (30m) & FA (15m) MARIANNE KNAPP CAREER TECHNICAL EDUCATION INSTRUCTOR August 14, 2016 12:08
--- NOTE | 2016-08-14 13:27 | Physical Therapy Daily Note ---
PT Daily Note-Current Subjective Pt sitting in recliner upon arrival. Pt reports continued pain in R hip ( Sciatic). Pt agrees to PT. Pain Numeric Pain Scale: 8 Location: Right Location Body Site: Hip Pain Description: Ache Mental Status Patient Orientation: Person, Place, Situation Transfers Functional [place] Measure 0=Not Assessed/NA 4=Minimal Assistance 1=Total Assistance 5=Supervision or Setup 2=Maximal Assistance 6=Modified [place] 3=Moderate Assistance 7=Complete IndependenceIRFPAI Quality Coding Scale 6 Independent with activity with or without an assistive device 5 Patient requires set up or clean up by helper. Patient completes activity by themselves 4 Supervision or touching assist (CGA). [place] provide cues , steadying assist 3 The helper provides less than half the effort to complete the activity 2 The helper provides more than half the effort to complete the activity 1 Dependent. The helper does all the effort to complete an activity 7 Patient refused to complete or attempt activity 9 The patient did not perform the activity before the current illness or injury 88 Not attempted due to Medical conditions or safety concerns Scootin Supine to/from Sit: 4 Sit to/from Stand: 5 Sit to Stand (QC): 5 Weight Bearing Weight Bearing Restriction: Full Weight Bearing Location Restriction: LE Bilateral Gait Training Does the Patient Walk?: Yes Distance (FIM): 3=150 ft Distance: 150' Walk 10 feet (QC): 5 Walk 50 ft with 2 Turns(QC): 5 Walk 150 ft (QC): 5 Gait Level of Assist: 5 Gait Persons Needed: 1 Gait Assistive Device: FWW Pt walks with antalgic gait pattern and is encouraged to continue WB more with LE instead of UE. Wheelchair Training Does the Pt Use a Wheelchair?: No Exercises Seated Therapy Exercises: Ankle pumps, Long arc quads, Hip flexion, Kicking activity, Hip abd/add Seated Reps: 15 Treatments Pt transfers from recliner to standing using FWW at SBA. Pt ambulates in Therapy Commons using FWW at close SBA before completing Seated Ex in chair in Therapy Gym. Pt returns to room to rest in recliner at end of tx with all needs met. Assessment Current Status: Fair Progress Pt's activity tolerance is improving although pt reports no improvement with pain management. PT Short Term Goals Short Term Goals Time Frame: August 14, 2016 Gait (FIM): 4 Distance (FIM): 3=150 ft Gait Assistive Device: FWW PT Talent Acquisition Consultant Goals Fdc Goals PT Talent Acquisition Consultant Goals Time Frame: Aug 21, 2016 Transfers (B,C,W/C) (FIM): 6 Sit to Lying (QC): 6 Lying-Sitting on Side/Bed(QC): 6 Sit to Stand (QC): 6 Rollin Roll Left to Right (QC): 6 Chair/Gba-et-Ifvpy Xfer(QC): 6 Car Transfer (QC): 5 Does the Patient Walk: Yes Gait (FIM): 6 Gait distance (FIM): 3=150 ft Walk 10 feet (QC): 6 Walk 10ft-Uneven Surface(QC): 6 Walk 50ft with 2 Turns (QC): 6 Walk 150 ft (QC): 6 Gait Assistive Device: FWW Does the Pt use WC or Scooter?: No Stairs (FIM): 2 # of Steps: 4 1 Step (curb) (QC): 4 4 Steps (QC): 4 12 Steps (QC): 88 Picking up an Object (QC): 4 PT Plan Problem List Problem List: Functional Strength, Safety, Balance, Gait, Transfer Treatment/Plan Treatment Plan: Continue Plan of Care Treatment Plan: Bed Mobility, Education, Functional Activity Indy, Functional Strength, Group Therapy, Gait, Safety, Therapeutic Exercise, Transfers Treatment Duration: Aug 21, 2016 Visits Per Week: 10-15 Minutes/Day (M-F): 60-90 Minutes/Day (Sat/Gray): prn Safety Risks/Education Patient Education: Gait Training, Transfer Techniques, Correct Positioning, Disease Process, Safety Issues Teaching Recipient: Patient Teaching Methods: Discussion Response to Teaching: Verbalize Understanding Time/GCodes Time In: 1230 Time Out: 1300 Total Billed Treatment Time: 30 Total Billed Treatment visit, FA (15m) & GT (15m) MARIANNE KNAPP PTA August 14, 2016 13:27
[2016-08-14 18:10] VITALS: BP 107/49
[2016-08-15 06:00] VITALS: BP 148/80
[2016-08-15] MEDS: ACETAMINOPHEN 500 MG TAB (TYLENOL) PO SCH ×3 (06:26→21:07)
[2016-08-15] MEDS: PANTOPRAZOLE 20 MG TABLET (PROTONIX) PO SCH (06:26)
[2016-08-15] MEDS: CATHETER FLUSH 10 ML SYR IV SCH ×3 (06:26→21:07)
--- NOTE | 2016-08-15 08:46 | Occupational Ther Daily Note ---
OT Current Status-Daily Note Subjective Pt sitting in chair, agrees to treatment. Mental Status/Objective Functional [place] Measure 0=Not Assessed/NA 4=Minimal Assistance 1=Total Assistance 5=Supervision or Setup 2=Maximal Assistance 6=Modified [place] 3=Moderate Assistance 7=Complete [place] ADL-Treatment Pt requests to shower today. Sit to stand with supervision. Gait to restroom with FWW. Transfer to walk in shower with supervision using grab bars for safety. Pt doffed gown without assistance. Used dressing stick to doff underwear and socks. Pt completed seated bathing using hand held shower. Used long handled sponge to wash lower legs and feet. Stood with supervision for balance while washing buttocks. Pt able to dry all areas. Don bra with minimal assistance secondary to difficulty fastening bra. Don pullover shirt with set up. Pt donned underwear and pants using transverse abdominal muscle surgeon to start over feet. Stood with good balance for pant hike using FWW. Pt sitting in chair with needs met and RN present to speak with pt. Functional [place] Measure 0=Not Assessed/NA 4=Minimal Assistance 1=Total Assistance 5=Supervision or Setup 2=Maximal Assistance 6=Modified [place] 3=Moderate Assistance 7=Complete IndependenceIRFPAI Quality Coding Scale 6 Independent with activity with or without an assistive device 5 Patient requires set up or clean up by helper. Patient completes activity by themselves 4 Supervision or touching assist (CGA). [place] provide cues , steadying assist 3 The helper provides less than half the effort to complete the activity 2 The helper provides more than half the effort to complete the activity 1 Dependent. The helper does all the effort to complete an activity 7 Patient refused to complete or attempt activity 9 The patient did not perform the activity before the current illness or injury 88 Not attempted due to Medical conditions or safety concerns Bathing (FIM): 5 Upper Body (FIM): 4 Upper Body Dressing (QC): 4 Lower Body Dressing (FIM): 5 Lower Body Dressing (QC): 5 Shower Transfer(FIM): 5 OT Short Term Goals Short Term Goals Time Frame: Aug 21, 2016 Bathing(FIM): 5 Upper Body Dressing(FIM): 5 Lower Body Dressing(FIM): 5 Toileting(FIM): 5 Toilet/Commode Transfer(FIM): 5 Shower Transfer(FIM): 5 Additional Short Term Goals: 1-Demonstrate ADL Tasks, 2-Verbalize Understanding , 3-ImproveStrength/Indy 1=Demonstrate adherence to instructed precautions during ADL tasks. 2=Patient will verbalize/demonstrate understanding of assistive devices/ modifications for ADL. 3=Patient will improve strength/tolerance for activity to enable patient to perform ADL's. OT Snf Goals Public Relations Player Goals Time Frame: Aug 28, 2016 Eating (FIM): 6 Eating (QC): 6 Groomin Oral Hygiene (QC): 6 Bathing(FIM): 5 Shower/Bathe Self (QC): 5 Upper Body Dressing(FIM): 6 Upper Body Dressing (QC): 6 Lower Body Dressing(FIM): 6 Lower Body Dressing (QC): 6 On/Off Footwear (QC): 6 Toileting(FIM): 6 Toileting Hygiene (QC): 6 Toilet/Commode Transfer(FIM): 6 Toilet/Commode Transfer (QC): 6 Shower Transfer(FIM): 5 Additional Goals: 1-Demonstrate ADL Tasks, 2-Verbalize Understanding, 3- ImproveStrength/Indy 1=Demonstrate adherence to instructed precautions during ADL tasks. 2=Patient will verbalize/demonstrate understanding of assistive devices/ modifications for ADL. 3=Patient will improve strength/tolerance for activity to enable patient to perform ADL's. OT Education/Plan Problem List/Assessment Pt demonstrates decreased ADL functioning, mobility, strength, and activity tolerance. Pt to benefit from skilled OT intervention for ADL training, transfers, strengthening, adaptive equipment training, and home safety education to maximize level of function and allow safe return home. Discharge Recommendations Plan/Recommendations: Continue POC Treatment Plan/Plan of Care Patient would benefit from OT for education, treatment and training to promote independence in ADL's, mobility, safety and/or upper extremity function for ADL' s. Plan of Care: ADL Retraining, Functional Mobility, Group Exercise/Act as Ind, UE Funct Exercise/Act Treatment Duration: Aug 28, 2016 Visits Per Week: 10-12 Minutes/Day (M-F): 60-90 Minutes/Day (Sat/Gray): PRN Agreement: Yes Rehab Potential: Good Time/GCodes Start Time: 07:45 Stop Time: 08:30 Total Time Billed (hr/min): 45 Billed Treatment Time 1 visit, ADLx3(45minutes) REMY HURD OT August 15, 2016 08:46
[2016-08-15] MEDS: GABAPENTIN 100 MG (NEURONTIN) CAP PO SCH ×2 (08:56→21:06)
[2016-08-15] MEDS: NYSTATIN CREAM (MYCOSTATIN) 30 GM TUBE TP SCH ×3 (08:57→21:06)
[2016-08-15] MEDS: SENNA W/DOCUSATE (SENOKOT S) TABLET PO SCH (08:57)
[2016-08-15] MEDS: ASPIRIN E.C. 325 MG (ECOTRIN) TABLET PO SCH (08:57)
[2016-08-15] MEDS: LIDOCAINE TOPICAL 4% 50 ML BTL TP PRN (08:59)
[2016-08-15] MEDS: ONDANSETRON 4 MG (ZOFRAN) ORAL DISSOLVE TAB PO PRN (09:03)
[2016-08-15] MEDS: METOCLOPRAMIDE INJ 10 MG/2 ML (REGLAN) IV PRN (11:12)
--- NOTE | 2016-08-15 11:41 | Physical Therapy Daily Note ---
PT Daily Note-Current Subjective Pt is sitting up in recliner upon arrival. Pt reports continued Sciatic pain in R hip and radiates to foot as well as nausea this morning. Pt has already received nausea and pain med. Pain Numeric Pain Scale: 8 Location: Right Location Body Site: Hip Pain Description: Cramping Comment: Pt reports Sciatic pain in R hip radiating to foot & cramping in R calf Mental Status Patient Orientation: Person, Place, Situation Transfers Functional [place] Measure 0=Not Assessed/NA 4=Minimal Assistance 1=Total Assistance 5=Supervision or Setup 2=Maximal Assistance 6=Modified [place] 3=Moderate Assistance 7=Complete IndependenceIRFPAI Quality Coding Scale 6 Independent with activity with or without an assistive device 5 Patient requires set up or clean up by helper. Patient completes activity by themselves 4 Supervision or touching assist (CGA). [place] provide cues , steadying assist 3 The helper provides less than half the effort to complete the activity 2 The helper provides more than half the effort to complete the activity 1 Dependent. The helper does all the effort to complete an activity 7 Patient refused to complete or attempt activity 9 The patient did not perform the activity before the current illness or injury 88 Not attempted due to Medical conditions or safety concerns Scootin Rollin Roll Left to Right (QC): 4 Supine to/from Sit: 4 Sit to/from Stand: 5 Sit to Lying (QC): 4 Sit to Stand (QC): 5 Weight Bearing Weight Bearing Restriction: Full Weight Bearing Location Restriction: LE Bilateral Gait Training Does the Patient Walk?: Yes Distance (FIM): 3=150 ft Distance: 200' Walk 10 feet (QC): 5 Walk 50 ft with 2 Turns(QC): 5 Walk 150 ft (QC): 5 Gait Level of Assist: 5 Gait Persons Needed: 1 Gait Assistive Device: FWW Pt continues to walk with antalgic gait but is encouraged to continue to increase WB through LE instead of UE. Wheelchair Training Does the Pt Use a Wheelchair?: No Exercises Supine Ex: Ankle pumps, Quad Set, Rolling, Heel Slides, Straight leg raise, Hip abd/add Supine Reps: 15 NuStep Minutes: 15 NuStep Workload: 5 Treatments Pt transferred from recliner using FWW at [facility]. Pt ambulated using FWW at [facility]. Pt used NuStep for 15m at Workload 5 then transferred to mat for Supine Ex and stretching for Sciatic pain. Pt wanted to complete stretching laying sidelying in bed so returned to room. Pt transferred to Supine at Min A to assist with the last little bit to get RLE into bed, then pt rolled to L side. Pt completed stretching then rolled back to Supine for completion of Supine Ex. Pt rests Supine in bed at end of tx with all needs met including SCDs on to assist with pain in calves. Assessment Current Status: Fair Progress Pt gets confused and will repeat information already given. Pt continues to have pain in R hip due to surgery but reports pain is worse due to Sciatic pain experienced. Pt is making progress with independence of transfers and ambulation although pt reports no change in pain. PT Short Term Goals Short Term Goals Time Frame: August 14, 2016 Gait (FIM): 4 Distance (FIM): 3=150 ft Gait Assistive Device: FWW PT Steward/Stewardess Wine Goals Steward/Stewardess Wine Goals PT Prison Goals Time Frame: Aug 21, 2016 Transfers (B,C,W/C) (FIM): 6 Sit to Lying (QC): 6 Lying-Sitting on Side/Bed(QC): 6 Sit to Stand (QC): 6 Rollin Roll Left to Right (QC): 6 Chair/Xve-tb-Ztcvc Xfer(QC): 6 Car Transfer (QC): 5 Does the Patient Walk: Yes Gait (FIM): 6 Gait distance (FIM): 3=150 ft Walk 10 feet (QC): 6 Walk 10ft-Uneven Surface(QC): 6 Walk 50ft with 2 Turns (QC): 6 Walk 150 ft (QC): 6 Gait Assistive Device: FWW Does the Pt use WC or Scooter?: No Stairs (FIM): 2 # of Steps: 4 1 Step (curb) (QC): 4 4 Steps (QC): 4 12 Steps (QC): 88 Picking up an Object (QC): 4 PT Plan Problem List Problem List: Activity Tolerance, Functional Strength, Gait, Transfer Treatment/Plan Treatment Plan: Continue Plan of Care Treatment Plan: Bed Mobility, Education, Functional Activity Indy, Functional Strength, Group Therapy, Gait, Safety, Therapeutic Exercise, Transfers Treatment Duration: Aug 21, 2016 Visits Per Week: 10-15 Minutes/Day (M-F): 60-90 Minutes/Day (Sat/Gray): prn Safety Risks/Education Patient Education: Gait Training, Transfer Techniques, Correct Positioning, Safety Issues Teaching Recipient: Patient Teaching Methods: Discussion Response to Teaching: Verbalize Understanding Time/GCodes Time In: 1000 Time Out: 1100 Total Billed Treatment Time: 60 Total Billed Treatment visit, GT (15m), EX X2 (30m) & FA (15m) MARIANNE KNAPP ARTISTIC ASSOCIATE August 15, 2016 11:41
--- NOTE | 2016-08-15 13:17 | Occupational Ther Daily Note ---
OT Current Status-Daily Note Subjective Pt in bed, agrees to treatment. Pt reports 8/10 right LE pain. Mental Status/Objective Functional [place] Measure 0=Not Assessed/NA 4=Minimal Assistance 1=Total Assistance 5=Supervision or Setup 2=Maximal Assistance 6=Modified [place] 3=Moderate Assistance 7=Complete [place] ADL-Treatment Pt supine to sit with minimal assistance. Sit to stand with supervision. Gait to restroom with FWW. Pt completed toilet transfer with supervision using grab bars for safety. Pt able to complete toileting with SBA. Functional [place] Measure 0=Not Assessed/NA 4=Minimal Assistance 1=Total Assistance 5=Supervision or Setup 2=Maximal Assistance 6=Modified [place] 3=Moderate Assistance 7=Complete IndependenceIRFPAI Quality Coding Scale 6 Independent with activity with or without an assistive device 5 Patient requires set up or clean up by helper. Patient completes activity by themselves 4 Supervision or touching assist (CGA). [place] provide cues , steadying assist 3 The helper provides less than half the effort to complete the activity 2 The helper provides more than half the effort to complete the activity 1 Dependent. The helper does all the effort to complete an activity 7 Patient refused to complete or attempt activity 9 The patient did not perform the activity before the current illness or injury 88 Not attempted due to Medical conditions or safety concerns Toileting (FIM): 5 Toilet/Commode Transfer (FIM): 5 Other Treatment Pt completed bilateral UE exercises while seated to promote increased strength needed for ADLs and transfers. Pt performed shoulder flexion, abduction, biceps curls, and triceps extension exercises x20 reps with red theraband. Rest breaks between exercises. Occasional cues for proper exercise technique. Pt sitting in chair eating lunch after session. OT Short Term Goals Short Term Goals Time Frame: Aug 21, 2016 Bathing(FIM): 5 Upper Body Dressing(FIM): 5 Lower Body Dressing(FIM): 5 Toileting(FIM): 5 Toilet/Commode Transfer(FIM): 5 Shower Transfer(FIM): 5 Additional Short Term Goals: 1-Demonstrate ADL Tasks, 2-Verbalize Understanding , 3-ImproveStrength/Indy 1=Demonstrate adherence to instructed precautions during ADL tasks. 2=Patient will verbalize/demonstrate understanding of assistive devices/ modifications for ADL. 3=Patient will improve strength/tolerance for activity to enable patient to perform ADL's. OT Fabrication And Assembly Supervisor Goals Fabrication And Assembly Supervisor Goals Time Frame: Aug 28, 2016 Eating (FIM): 6 Eating (QC): 6 Groomin Oral Hygiene (QC): 6 Bathing(FIM): 5 Shower/Bathe Self (QC): 5 Upper Body Dressing(FIM): 6 Upper Body Dressing (QC): 6 Lower Body Dressing(FIM): 6 Lower Body Dressing (QC): 6 On/Off Footwear (QC): 6 Toileting(FIM): 6 Toileting Hygiene (QC): 6 Toilet/Commode Transfer(FIM): 6 Toilet/Commode Transfer (QC): 6 Shower Transfer(FIM): 5 Additional Goals: 1-Demonstrate ADL Tasks, 2-Verbalize Understanding, 3- ImproveStrength/Indy 1=Demonstrate adherence to instructed precautions during ADL tasks. 2=Patient will verbalize/demonstrate understanding of assistive devices/ modifications for ADL. 3=Patient will improve strength/tolerance for activity to enable patient to perform ADL's. OT Education/Plan Discharge Recommendations Plan/Recommendations: Continue POC Treatment Plan/Plan of Care Treatment,Training & Education: Yes Patient would benefit from OT for education, treatment and training to promote independence in ADL's, mobility, safety and/or upper extremity function for ADL' s. Plan of Care: ADL Retraining, Functional Mobility, Group Exercise/Act as Ind, UE Funct Exercise/Act Treatment Duration: Aug 28, 2016 Visits Per Week: 10-12 Minutes/Day (M-F): 60-90 Minutes/Day (Sat/Gray): PRN Agreement: Yes Rehab Potential: Good Time/GCodes Start Time: 11:50 Stop Time: 12:05 Total Time Billed (hr/min): 15 Billed Treatment Time 1 visit, EX(15minutes) REMY HURD OT August 15, 2016 13:17
--- NOTE | 2016-08-15 14:48 | Therapy Group Daily Note ---
Therapy Daily Group Note Patient Education Topic Home Safety, Fall Prevention Exercises LE Seated Exercise, UE Exercise Other/Notes Pt was an active participant in OT/PT group. She contributed to group discussion education on home safety and fall prevention - and was able to identify changes that she has made at home to be safer. She did seated UE and LE exercises, modifying them as needed for her LE limitations. She walked back to her room with ANA BUTLER, taking a couple brief standing breaks along the way. She needed assistance to get legs into bed and was left with 4 rails up, all needs met. Start Time: 13:00 Stop Time: 14:10 Total Billed Treatment Time: 70 Total Billed Treatment visit, 70 minutes group VANE CHAPA OT August 15, 2016 14:48
[2016-08-15 15:08] VITALS: BP 157/70
[2016-08-16 05:00] VITALS: BP 169/69
[2016-08-16] MEDS: CATHETER FLUSH 10 ML SYR IV SCH ×3 (06:35→20:58)
[2016-08-16] MEDS: ACETAMINOPHEN 500 MG TAB (TYLENOL) PO SCH ×3 (06:35→20:55)
[2016-08-16] MEDS: PANTOPRAZOLE 20 MG TABLET (PROTONIX) PO SCH (06:35)
[2016-08-16] MEDS: ASPIRIN E.C. 325 MG (ECOTRIN) TABLET PO SCH (08:12)
[2016-08-16] MEDS: GABAPENTIN 100 MG (NEURONTIN) CAP PO SCH ×2 (08:12→20:56)
[2016-08-16] MEDS: SENNA W/DOCUSATE (SENOKOT S) TABLET PO SCH (08:12)
[2016-08-16] MEDS: NYSTATIN CREAM (MYCOSTATIN) 30 GM TUBE TP SCH ×3 (08:17→20:59)
[2016-08-16] MEDS: ONDANSETRON 4 MG (ZOFRAN) ORAL DISSOLVE TAB PO PRN (09:04)
--- NOTE | 2016-08-16 12:43 | Physical Therapy Daily Note ---
PT Daily Note-Current Subjective Agrees to Rx. States she has sat up for a while and is ready to lay down after Rx. States she has fought sciatica issues for quite some time and that is difficult since her hip surgery. Pain Numeric Pain Scale: 7 (before Rx, 10 after Rx) Location: Right Location Body Site: Hip Pain Description: Burning Mental Status Patient Orientation: Normal For Age Transfers Functional [place] Measure 0=Not Assessed/NA 4=Minimal Assistance 1=Total Assistance 5=Supervision or Setup 2=Maximal Assistance 6=Modified [place] 3=Moderate Assistance 7=Complete IndependenceIRFPAI Quality Coding Scale 6 Independent with activity with or without an assistive device 5 Patient requires set up or clean up by helper. Patient completes activity by themselves 4 Supervision or touching assist (CGA). [place] provide cues , steadying assist 3 The helper provides less than half the effort to complete the activity 2 The helper provides more than half the effort to complete the activity 1 Dependent. The helper does all the effort to complete an activity 7 Patient refused to complete or attempt activity 9 The patient did not perform the activity before the current illness or injury 88 Not attempted due to Medical conditions or safety concerns Transfers (B, C, W/C) (FIM): 4 Scootin Rollin Supine to/from Sit: 4 Sit to/from Stand: 4 Bed to/from Chair: 4 CGA and instruction for RLE into bed sit to sup Gait Training Does the Patient Walk?: Yes Gait (FIM): 4 Distance (FIM): 3=150 ft (x2) Gait Level of Assist: 4 Gait Persons Needed: 1 Gait Assistive Device: FWW Exercises Supine Ex: Ankle pumps, Quad Set, Heel Slides, Short Arc Quads, Scooting, Straight leg raise, Hip abd/add Supine Reps: 10 Seated Therapy Exercises: Ankle pumps, Sit to stand, Long arc quads, Hip abd/ add Seated Reps: 10 Assessment Current Status: Good Progress PT Short Term Goals Short Term Goals Time Frame: August 14, 2016 Gait (FIM): 4 Distance (FIM): 3=150 ft Gait Assistive Device: FWW PT Mcc Goals Airline Ticket Agent Goals PT Mcc Goals Time Frame: Aug 21, 2016 Transfers (B,C,W/C) (FIM): 6 Sit to Lying (QC): 6 Lying-Sitting on Side/Bed(QC): 6 Sit to Stand (QC): 6 Rollin Roll Left to Right (QC): 6 Chair/Dle-cs-Sdbbz Xfer(QC): 6 Car Transfer (QC): 5 Does the Patient Walk: Yes Gait (FIM): 6 Gait distance (FIM): 3=150 ft Walk 10 feet (QC): 6 Walk 10ft-Uneven Surface(QC): 6 Walk 50ft with 2 Turns (QC): 6 Walk 150 ft (QC): 6 Gait Assistive Device: FWW Does the Pt use WC or Scooter?: No Stairs (FIM): 2 # of Steps: 4 1 Step (curb) (QC): 4 4 Steps (QC): 4 12 Steps (QC): 88 Picking up an Object (QC): 4 PT Plan Treatment/Plan Treatment Plan: Continue Plan of Care Treatment Plan: Bed Mobility, Education, Functional Activity Indy, Functional Strength, Group Therapy, Gait, Safety, Therapeutic Exercise, Transfers Treatment Duration: Aug 21, 2016 Visits Per Week: 10-15 Minutes/Day (M-F): 60-90 Minutes/Day (Sat/Gray): prn Safety Risks/Education Patient Education: Gait Training, Transfer Techniques, Correct Positioning, Safety Issues Teaching Recipient: Patient Teaching Methods: Demonstration, Discussion Response to Teaching: Verbalize Understanding, Return Demonstration, Reinforcement Needed Time/GCodes Time In: 930 Time Out: 1000 Total Billed Treatment Time: 30 Total Billed Treatment 1GT15m,EX15m G Codes Necessary: XIOMARA Gustafson SENIOR SOFTWARE ARCHITECT August 16, 2016 12:43
[2016-08-16 18:21] VITALS: BP 111/57
[2016-08-17 06:10] VITALS: BP 140/74
[2016-08-17] MEDS: PANTOPRAZOLE 20 MG TABLET (PROTONIX) PO SCH (06:13)
[2016-08-17] MEDS: ACETAMINOPHEN 500 MG TAB (TYLENOL) PO SCH ×3 (06:13→20:53)
[2016-08-17] MEDS: CATHETER FLUSH 10 ML SYR IV SCH ×3 (06:15→19:26)
[2016-08-17] MEDS: NYSTATIN CREAM (MYCOSTATIN) 30 GM TUBE TP SCH ×3 (08:59→20:54)
[2016-08-17] MEDS: SENNA W/DOCUSATE (SENOKOT S) TABLET PO SCH (09:01)
[2016-08-17] MEDS: GABAPENTIN 100 MG (NEURONTIN) CAP PO SCH ×2 (09:01→20:53)
[2016-08-17] MEDS: ASPIRIN E.C. 325 MG (ECOTRIN) TABLET PO SCH (09:01)
[2016-08-17] MEDS: LIDOCAINE TOPICAL 4% 50 ML BTL TP PRN (09:09)
[2016-08-17] MEDS: ONDANSETRON 4 MG (ZOFRAN) ORAL DISSOLVE TAB PO PRN (11:59)
[2016-08-17] MEDS ORDERED: PROMETHAZINE 25 MG (PHENERGAN) TAB PO ONE (12:15)
[2016-08-17 17:47] VITALS: BP 116/68
[2016-08-18] MEDS: ACETAMINOPHEN 500 MG TAB (TYLENOL) PO SCH ×3 (06:09→21:00)
[2016-08-18] MEDS: PANTOPRAZOLE 20 MG TABLET (PROTONIX) PO SCH (06:09)
[2016-08-18 06:12] VITALS: BP 135/72
--- NOTE | 2016-08-18 07:52 | Physical Therapy Daily Note ---
PT Daily Note-Current Subjective Pt. still feeling that she needs to have BM, wants to walk and use toilet Pain Numeric Pain Scale: 3 Location: Right Location Body Site: Hip Pain Description: Ache Transfers Functional [place] Measure 0=Not Assessed/NA 4=Minimal Assistance 1=Total Assistance 5=Supervision or Setup 2=Maximal Assistance 6=Modified [place] 3=Moderate Assistance 7=Complete IndependenceIRFPAI Quality Coding Scale 6 Independent with activity with or without an assistive device 5 Patient requires set up or clean up by helper. Patient completes activity by themselves 4 Supervision or touching assist (CGA). [place] provide cues , steadying assist 3 The helper provides less than half the effort to complete the activity 2 The helper provides more than half the effort to complete the activity 1 Dependent. The helper does all the effort to complete an activity 7 Patient refused to complete or attempt activity 9 The patient did not perform the activity before the current illness or injury 88 Not attempted due to Medical conditions or safety concerns TRFs in out bed min assist, sit to stand from toilet with rail all SBA Gait Training Gait Assistive Device: FWW 35ftx2 FWW CGA to SBA Exercises Seated Therapy Exercises: Ankle pumps, Sit to stand, Long arc quads, Hip abd/ add Seated Reps: 8 Treatments toileted managing clean up and pants indep Assessment Current Status: Good Progress slow moving but no LOB PT Short Term Goals Short Term Goals Time Frame: August 14, 2016 Gait (FIM): 4 Distance (FIM): 3=150 ft Gait Assistive Device: FWW Wheelchair Distance: See PT goals PT Alf Goals Alf Goals PT Alf Goals Time Frame: Aug 21, 2016 Transfers (B,C,W/C) (FIM): 6 Sit to Lying (QC): 6 Lying-Sitting on Side/Bed(QC): 6 Sit to Stand (QC): 6 Rollin Roll Left to Right (QC): 6 Chair/Pho-og-Fawjf Xfer(QC): 6 Car Transfer (QC): 5 Does the Patient Walk: Yes Gait (FIM): 6 Gait distance (FIM): 3=150 ft Walk 10 feet (QC): 6 Walk 10ft-Uneven Surface(QC): 6 Walk 50ft with 2 Turns (QC): 6 Walk 150 ft (QC): 6 Gait Assistive Device: FWW Does the Pt use WC or Scooter?: No Stairs (FIM): 2 # of Steps: 4 1 Step (curb) (QC): 4 4 Steps (QC): 4 12 Steps (QC): 88 Picking up an Object (QC): 4 PT Plan Treatment/Plan Treatment Plan: Continue Plan of Care Treatment Plan: Bed Mobility, Education, Functional Activity Indy, Functional Strength, Group Therapy, Gait, Safety, Therapeutic Exercise, Transfers Treatment Duration: Aug 21, 2016 Visits Per Week: 10-15 Minutes/Day (M-F): 60-90 Minutes/Day (Sat/Gray): prn Safety Risks/Education Patient Education: Gait Training, Transfer Techniques Teaching Recipient: Patient Teaching Methods: Demonstration, Discussion Response to Teaching: Verbalize Understanding, Return Demonstration, Reinforcement Needed Time/GCodes Time In: 1300 Time Out: 1325 Total Billed Treatment Time: 25 Total Billed Treatment this [facility] is for Tuesday August 16, 2016 (late documentation, late chg)1,FA25m G Codes Necessary: XIOMARA Gustafson DIRECTOR HARDWARE August 18, 2016 07:52
[2016-08-18] MEDS: NYSTATIN CREAM (MYCOSTATIN) 30 GM TUBE TP SCH ×3 (08:14→20:45)
[2016-08-18] MEDS: GABAPENTIN 100 MG (NEURONTIN) CAP PO SCH ×2 (08:14→20:46)
[2016-08-18] MEDS: SENNA W/DOCUSATE (SENOKOT S) TABLET PO SCH (08:14)
[2016-08-18] MEDS: ASPIRIN E.C. 325 MG (ECOTRIN) TABLET PO SCH (08:14)
--- NOTE | 2016-08-18 10:00 | Occupational Ther Daily Note ---
OT Current Status-Daily Note Subjective Pt alert, sitting in recliner. Pt agreed to therapy. Pt c/o pain, 10/30, nrsg brought pain medications. Mental Status/Objective Patient Orientation: Person, Place, Time, Situation Functional [place] Measure 0=Not Assessed/NA 4=Minimal Assistance 1=Total Assistance 5=Supervision or Setup 2=Maximal Assistance 6=Modified [place] 3=Moderate Assistance 7=Complete [place] ADL-Treatment Functional [place] Measure 0=Not Assessed/NA 4=Minimal Assistance 1=Total Assistance 5=Supervision or Setup 2=Maximal Assistance 6=Modified [place] 3=Moderate Assistance 7=Complete IndependenceIRFPAI Quality Coding Scale 6 Independent with activity with or without an assistive device 5 Patient requires set up or clean up by helper. Patient completes activity by themselves 4 Supervision or touching assist (CGA). [place] provide cues , steadying assist 3 The helper provides less than half the effort to complete the activity 2 The helper provides more than half the effort to complete the activity 1 Dependent. The helper does all the effort to complete an activity 7 Patient refused to complete or attempt activity 9 The patient did not perform the activity before the current illness or injury 88 Not attempted due to Medical conditions or safety concerns Grooming (FIM): 5 (Using FWW to stand at sink, pt is able to complete own grooming with supervision.) Bathing (FIM): 5 (Using shower bench, grabbars and hand held shower pt is able to complete own shower with set up.) Upper Body (FIM): 5 (After set up, pt is able to complete own dressing.) Lower Body Dressing (FIM): 5 (After set up, pt is able to complete own dressing. Pt uses lower body AE to complete dressing.) Toileting (FIM): 5 (Using grabbars and FWW, pt is able to complete with supervision.) Transfers (B, C, W/C) (FIM): 5 (Supervision with transfers.) Toilet/Commode Transfer (FIM): 5 (Supervision with transfers.) Shower Transfer(FIM): 5 (Using tub bench, grabbars and FWW pt is able to complete transfer with supervision.) Pt is able to complete ADLs with supervision. Pt does get fatigued quickly, no LOB noted. Pt is very aware of safety for self. After therapy, pt sitting in recliner with call light/phone in reach. All needs met in room. OT Short Term Goals Short Term Goals Time Frame: Aug 21, 2016 Bathing(FIM): 5 Upper Body Dressing(FIM): 5 Lower Body Dressing(FIM): 5 Toileting(FIM): 5 Toilet/Commode Transfer(FIM): 5 Shower Transfer(FIM): 5 Additional Short Term Goals: 1-Demonstrate ADL Tasks, 2-Verbalize Understanding , 3-ImproveStrength/Indy 1=Demonstrate adherence to instructed precautions during ADL tasks. 2=Patient will verbalize/demonstrate understanding of assistive devices/ modifications for ADL. 3=Patient will improve strength/tolerance for activity to enable patient to perform ADL's. OT Replenishment Specialist Goals [facility] Goals Time Frame: Aug 28, 2016 Eating (FIM): 6 Eating (QC): 6 Groomin Oral Hygiene (QC): 6 Bathing(FIM): 5 Shower/Bathe Self (QC): 5 Upper Body Dressing(FIM): 6 Upper Body Dressing (QC): 6 Lower Body Dressing(FIM): 6 Lower Body Dressing (QC): 6 On/Off Footwear (QC): 6 Toileting(FIM): 6 Toileting Hygiene (QC): 6 Toilet/Commode Transfer(FIM): 6 Toilet/Commode Transfer (QC): 6 Shower Transfer(FIM): 5 Additional Goals: 1-Demonstrate ADL Tasks, 2-Verbalize Understanding, 3- ImproveStrength/Indy 1=Demonstrate adherence to instructed precautions during ADL tasks. 2=Patient will verbalize/demonstrate understanding of assistive devices/ modifications for ADL. 3=Patient will improve strength/tolerance for activity to enable patient to perform ADL's. OT Education/Plan Discharge Recommendations Plan/Recommendations: Continue POC Treatment Plan/Plan of Care Patient would benefit from OT for education, treatment and training to promote independence in ADL's, mobility, safety and/or upper extremity function for ADL' s. Plan of Care: ADL Retraining, Functional Mobility, Group Exercise/Act as Ind, UE Funct Exercise/Act Treatment Duration: Aug 28, 2016 Visits Per Week: 10-12 Minutes/Day (M-F): 60-90 Minutes/Day (Sat/Gray): PRN Agreement: Yes Rehab Potential: Good Time/GCodes Start Time: 09:00 Stop Time: 10:00 Total Time Billed (hr/min): 60 Billed Treatment Time 1 visit-ADL 4 (60 min) ESTRADA BHATIA August 18, 2016 10:00
[2016-08-18] MEDS: ONDANSETRON 4 MG (ZOFRAN) ORAL DISSOLVE TAB PO PRN (11:27)
--- NOTE | 2016-08-18 11:53 | Physical Therapy Daily Note ---
PT Daily Note-Current Subjective Pt sitting in recliner upon arrival. Pt reports feeling like pain in hip and walking is going much better. Pt agrees to PT. Pain Numeric Pain Scale: 5-Moderate Pain Location: Right Location Body Site: Hip Pain Description: Ache, Tightness Mental Status Patient Orientation: Person, Place, Situation Transfers Functional [place] Measure 0=Not Assessed/NA 4=Minimal Assistance 1=Total Assistance 5=Supervision or Setup 2=Maximal Assistance 6=Modified [place] 3=Moderate Assistance 7=Complete IndependenceIRFPAI Quality Coding Scale 6 Independent with activity with or without an assistive device 5 Patient requires set up or clean up by helper. Patient completes activity by themselves 4 Supervision or touching assist (CGA). [place] provide cues , steadying assist 3 The helper provides less than half the effort to complete the activity 2 The helper provides more than half the effort to complete the activity 1 Dependent. The helper does all the effort to complete an activity 7 Patient refused to complete or attempt activity 9 The patient did not perform the activity before the current illness or injury 88 Not attempted due to Medical conditions or safety concerns Scootin Sit to/from Stand: 5 Sit to Stand (QC): 5 Weight Bearing Weight Bearing Restriction: Full Weight Bearing Location Restriction: LE Bilateral Gait Training Does the Patient Walk?: Yes Distance (FIM): 3=150 ft Distance: 225' Walk 10 feet (QC): 5 Walk 50 ft with 2 Turns(QC): 5 Walk 150 ft (QC): 5 Gait Level of Assist: 5 Gait Persons Needed: 1 Gait Assistive Device: FWW Pt is walking with more normalized gait pattern but needs occasional VC to WB more through LE instead of UE. Wheelchair Training Does the Pt Use a Wheelchair?: No Exercises Standing: Hip Abduction, Mini squats, Sit to Stand (5 ), Weight shifts Standing Reps: 20 NuStep Minutes: 20 NuStep Workload: 5 Treatments Pt transfers from recliner to Standing using FWW at SBA. Pt uses restroom before leaving room for PT. Pt ambulates using FWW at SBA. Pt uses NuStep for 20m at Workload 5 then after short rest completes Standing EX at //bars with a couple of short rests. Pt ambulates back to room to rest in recliner at end of tx with all needs met. Assessment Current Status: Good Progress Pt is getting stronger and safer with transfers and mobility and now is experiencing less pain during tx. PT Short Term Goals Short Term Goals Time Frame: August 14, 2016 Gait (FIM): 4 Distance (FIM): 3=150 ft Gait Assistive Device: FWW Wheelchair Distance: See PT goals PT Speech Assistant Goals Speech Assistant Goals PT Long-Term Goals Time Frame: Aug 21, 2016 Transfers (B,C,W/C) (FIM): 6 Sit to Lying (QC): 6 Lying-Sitting on Side/Bed(QC): 6 Sit to Stand (QC): 6 Rollin Roll Left to Right (QC): 6 Chair/Ire-tp-Tnhum Xfer(QC): 6 Car Transfer (QC): 5 Does the Patient Walk: Yes Gait (FIM): 6 Gait distance (FIM): 3=150 ft Walk 10 feet (QC): 6 Walk 10ft-Uneven Surface(QC): 6 Walk 50ft with 2 Turns (QC): 6 Walk 150 ft (QC): 6 Gait Assistive Device: FWW Does the Pt use WC or Scooter?: No Stairs (FIM): 2 # of Steps: 4 1 Step (curb) (QC): 4 4 Steps (QC): 4 12 Steps (QC): 88 Picking up an Object (QC): 4 PT Plan Problem List Problem List: Activity Tolerance, Gait Treatment/Plan Treatment Plan: Continue Plan of Care Treatment Plan: Bed Mobility, Education, Functional Activity Indy, Functional Strength, Group Therapy, Gait, Safety, Therapeutic Exercise, Transfers Treatment Duration: Aug 21, 2016 Visits Per Week: 10-15 Minutes/Day (M-F): 60-90 Minutes/Day (Sat/Gray): prn Safety Risks/Education Patient Education: Gait Training, Transfer Techniques, Correct Positioning, Safety Issues Teaching Recipient: Patient Teaching Methods: Discussion Response to Teaching: Verbalize Understanding Time/GCodes Time In: 1015 Time Out: 1115 Total Billed Treatment Time: 60 Total Billed Treatment visit, GT (15m), FA (15m) & EX x2 (30m) MARIANNE KNAPP ALLIGATOR TRAPPER August 18, 2016 11:53
--- NOTE | 2016-08-18 12:37 | Physical Therapy Daily Note ---
PT Daily Note-Current Subjective Patient continues to c/o pain right LE with noted edema. Pain Numeric Pain Scale: 5-Moderate Pain Location: Right Location Body Site: Hip Pain Description: Acute Mental Status Patient Orientation: Normal For Age Transfers Functional [place] Measure 0=Not Assessed/NA 4=Minimal Assistance 1=Total Assistance 5=Supervision or Setup 2=Maximal Assistance 6=Modified [place] 3=Moderate Assistance 7=Complete IndependenceIRFPAI Quality Coding Scale 6 Independent with activity with or without an assistive device 5 Patient requires set up or clean up by helper. Patient completes activity by themselves 4 Supervision or touching assist (CGA). [place] provide cues , steadying assist 3 The helper provides less than half the effort to complete the activity 2 The helper provides more than half the effort to complete the activity 1 Dependent. The helper does all the effort to complete an activity 7 Patient refused to complete or attempt activity 9 The patient did not perform the activity before the current illness or injury 88 Not attempted due to Medical conditions or safety concerns Transfers (B, C, W/C) (FIM): 6 Scootin Rollin Roll Left to Right (QC): 5 Supine to/from Sit: 6 Sit to/from Stand: 6 Sit to Lying (QC): 5 Sit to Stand (QC): 5 Chair/Jow-hs-Tfwhb Xfer(QC): 5 Bed to/from Chair: 6 Car Transfer (QC): 5 Weight Bearing Weight Bearing Restriction: Weight Bearing/Tolerated Location Restriction: R LE Gait Training Does the Patient Walk?: Yes Gait (FIM): 6 Distance (FIM): 3=150 ft Distance: 200' x 2 Walk 10 feet (QC): 5 Walk 50 ft with 2 Turns(QC): 5 Walk 150 ft (QC): 5 Gait Level of Assist: 6 Gait Assistive Device: FWW slow, functional gait sequence Exercises Seated Therapy Exercises: Ankle pumps, Long arc quads, Hip flexion Seated Reps: 20 (2 sets) Standing: Marching, Mini squats Standing Reps: 20 (2 sets) Assessment Patient requires encouragement to perform sit to supine modified independently. Patient tolerates treatment well and is in bed with needs met. PT Short Term Goals Short Term Goals Time Frame: August 14, 2016 Gait (FIM): 4 Distance (FIM): 3=150 ft Gait Assistive Device: FWW Wheelchair Distance: See PT goals PT Pipeline Construction Inspector Goals [facility] Goals PT [facility]sp Goals Time Frame: Aug 21, 2016 Transfers (B,C,W/C) (FIM): 6 Sit to Lying (QC): 6 Lying-Sitting on Side/Bed(QC): 6 Sit to Stand (QC): 6 Rollin Roll Left to Right (QC): 6 Chair/Uws-fv-Herpj Xfer(QC): 6 Car Transfer (QC): 5 Does the Patient Walk: Yes Gait (FIM): 6 Gait distance (FIM): 3=150 ft Walk 10 feet (QC): 6 Walk 10ft-Uneven Surface(QC): 6 Walk 50ft with 2 Turns (QC): 6 Walk 150 ft (QC): 6 Gait Assistive Device: FWW Does the Pt use WC or Scooter?: No Stairs (FIM): 2 # of Steps: 4 1 Step (curb) (QC): 4 4 Steps (QC): 4 12 Steps (QC): 88 Picking up an Object (QC): 4 PT Plan Treatment/Plan Treatment Plan: Continue Plan of Care Treatment Plan: Bed Mobility, Education, Functional Activity Indy, Functional Strength, Group Therapy, Gait, Safety, Therapeutic Exercise, Transfers Treatment Duration: Aug 21, 2016 Visits Per Week: 10-15 Minutes/Day (M-F): 60-90 Minutes/Day (Sat/Gray): prn Time/GCodes Time In: 1200 Time Out: 1230 Total Billed Treatment Time: 30 Total Billed Treatment 1 visit GT 15 min EX 15 min CHIRAG TRIVEDI PT August 18, 2016 12:37
[2016-08-18] MEDS: CATHETER FLUSH 10 ML SYR IV SCH ×2 (13:40→20:46)
--- NOTE | 2016-08-18 14:41 | Occupational Ther Daily Note ---
OT Current Status-Daily Note Subjective Pt alert, sitting in recliner. Pt agreed to therapy. No c/o pain at this time. Mental Status/Objective Functional [place] Measure 0=Not Assessed/NA 4=Minimal Assistance 1=Total Assistance 5=Supervision or Setup 2=Maximal Assistance 6=Modified [place] 3=Moderate Assistance 7=Complete [place] ADL-Treatment Functional [place] Measure 0=Not Assessed/NA 4=Minimal Assistance 1=Total Assistance 5=Supervision or Setup 2=Maximal Assistance 6=Modified [place] 3=Moderate Assistance 7=Complete IndependenceIRFPAI Quality Coding Scale 6 Independent with activity with or without an assistive device 5 Patient requires set up or clean up by helper. Patient completes activity by themselves 4 Supervision or touching assist (CGA). [place] provide cues , steadying assist 3 The helper provides less than half the effort to complete the activity 2 The helper provides more than half the effort to complete the activity 1 Dependent. The helper does all the effort to complete an activity 7 Patient refused to complete or attempt activity 9 The patient did not perform the activity before the current illness or injury 88 Not attempted due to Medical conditions or safety concerns Other Treatment Pt ambulated from room to large shower room to work on tub transfers. Pt stated that she had a tub seat with back and arms. Pt also stated that she only had one vertical grabbar on the front of her tub and one vertical on the back of her tub. Pt was apprehensive about attempting transfer. Pt was able to use one grabbar in front of tub then lift one foot (heel towards buttocks) and step in without LOB. Pt required assist with R LE to allow toes to pass over tub ledge, L LE could be lifted and placed into/out of tub on own. Pt ambulated back to room using FWW with SBA and sat in recliner. After therapy, pt sitting in recliner with call light/phone in reach. All needs met in room. Education OT Patient Education: Transfer techniques, Use of adapted equipment Teaching Recipient: Patient Teaching Methods: Demonstration Response to Teaching: Verbalize Understanding, Return Demonstration OT Short Term Goals Short Term Goals Time Frame: Aug 21, 2016 Bathing(FIM): 5 Upper Body Dressing(FIM): 5 Lower Body Dressing(FIM): 5 Toileting(FIM): 5 Toilet/Commode Transfer(FIM): 5 Shower Transfer(FIM): 5 Additional Short Term Goals: 1-Demonstrate ADL Tasks, 2-Verbalize Understanding , 3-ImproveStrength/Indy 1=Demonstrate adherence to instructed precautions during ADL tasks. 2=Patient will verbalize/demonstrate understanding of assistive devices/ modifications for ADL. 3=Patient will improve strength/tolerance for activity to enable patient to perform ADL's. OT Correction Goals Nitro Man Goals Time Frame: Aug 28, 2016 Eating (FIM): 6 Eating (QC): 6 Groomin Oral Hygiene (QC): 6 Bathing(FIM): 5 Shower/Bathe Self (QC): 5 Upper Body Dressing(FIM): 6 Upper Body Dressing (QC): 6 Lower Body Dressing(FIM): 6 Lower Body Dressing (QC): 6 On/Off Footwear (QC): 6 Toileting(FIM): 6 Toileting Hygiene (QC): 6 Toilet/Commode Transfer(FIM): 6 Toilet/Commode Transfer (QC): 6 Shower Transfer(FIM): 5 Additional Goals: 1-Demonstrate ADL Tasks, 2-Verbalize Understanding, 3- ImproveStrength/Indy 1=Demonstrate adherence to instructed precautions during ADL tasks. 2=Patient will verbalize/demonstrate understanding of assistive devices/ modifications for ADL. 3=Patient will improve strength/tolerance for activity to enable patient to perform ADL's. OT Education/Plan Discharge Recommendations Plan/Recommendations: Continue POC Treatment Plan/Plan of Care Patient would benefit from OT for education, treatment and training to promote independence in ADL's, mobility, safety and/or upper extremity function for ADL' s. Plan of Care: ADL Retraining, Functional Mobility, Group Exercise/Act as Ind, UE Funct Exercise/Act Treatment Duration: Aug 28, 2016 Visits Per Week: 10-12 Minutes/Day (M-F): 60-90 Minutes/Day (Sat/Gray): PRN Agreement: Yes Rehab Potential: Good Time/GCodes Start Time: 14:00 Stop Time: 14:30 Total Time Billed (hr/min): 30 Billed Treatment Time 1 visit-FA 2 (30 min) ESTRADA BHATIA August 18, 2016 14:41
[2016-08-18 17:56] VITALS: BP 141/68
[2016-08-19 05:04] VITALS: BP 165/82
[2016-08-19] MEDS: CATHETER FLUSH 10 ML SYR IV SCH ×3 (05:17→22:16)
[2016-08-19] MEDS: PANTOPRAZOLE 20 MG TABLET (PROTONIX) PO SCH (06:11)
[2016-08-19] MEDS: ACETAMINOPHEN 500 MG TAB (TYLENOL) PO SCH ×3 (06:11→21:28)
[2016-08-19] MEDS: GABAPENTIN 100 MG (NEURONTIN) CAP PO SCH ×2 (08:05→21:28)
[2016-08-19] MEDS: ASPIRIN E.C. 325 MG (ECOTRIN) TABLET PO SCH (08:06)
[2016-08-19] MEDS: SENNA W/DOCUSATE (SENOKOT S) TABLET PO SCH (08:06)
[2016-08-19] MEDS: NYSTATIN CREAM (MYCOSTATIN) 30 GM TUBE TP SCH ×3 (08:07→21:29)
--- NOTE | 2016-08-19 12:06 | Physical Therapy Daily Note ---
PT Daily Note-Current Subjective Pt was sitting in recliner upon arrival. Pt reports having a couple of BMs already this morning but wanted to try again before leaving room for tx. Pt agrees to PT. Pain Numeric Pain Scale: 6 Location: Right Location Body Site: Hip Pain Description: Cramping Comment: Pt reports R hip pain (Sciatic) from hip to foot cory. in calf. Mental Status Patient Orientation: Person, Place, Situation Transfers Functional [place] Measure 0=Not Assessed/NA 4=Minimal Assistance 1=Total Assistance 5=Supervision or Setup 2=Maximal Assistance 6=Modified [place] 3=Moderate Assistance 7=Complete IndependenceIRFPAI Quality Coding Scale 6 Independent with activity with or without an assistive device 5 Patient requires set up or clean up by helper. Patient completes activity by themselves 4 Supervision or touching assist (CGA). [place] provide cues , steadying assist 3 The helper provides less than half the effort to complete the activity 2 The helper provides more than half the effort to complete the activity 1 Dependent. The helper does all the effort to complete an activity 7 Patient refused to complete or attempt activity 9 The patient did not perform the activity before the current illness or injury 88 Not attempted due to Medical conditions or safety concerns Transfers (B, C, W/C) (FIM): 4 Scootin Rollin Roll Left to Right (QC): 5 Supine to/from Sit: 4 Sit to/from Stand: 6 Sit to Lying (QC): 5 Sit to Stand (QC): 6 Chair/Fjo-hx-Poswr Xfer(QC): 6 Bed to/from Chair: 6 Weight Bearing Weight Bearing Restriction: Full Weight Bearing Location Restriction: LE Bilateral Gait Training Does the Patient Walk?: Yes Gait (FIM): 5 Distance (FIM): 3=150 ft Distance: 250' Walk 10 feet (QC): 6 Walk 50 ft with 2 Turns(QC): 6 Walk 150 ft (QC): 5 Walking 10ft/uneven surface-QC: 5 Gait Level of Assist: 6 Gait Persons Needed: 1 Gait Assistive Device: FWW Pt fatigues and needs standing rest breaks during ambulation. Pt walks with slight antalgic gait pattern that pt reports as Sciatic pain. Wheelchair Training Does the Pt Use a Wheelchair?: No Stair Training Stair Training: Handrails/: 2 handrails Stairs (FIM): 2 #of Steps: 4 1 Step (curb) (QC): 5 4 Steps (QC): 5 12 Steps (QC): 88 Stairs: Pattern: Step to Level of Assist: 5 Pt only completes 1 set of 4 stairs because pt gets dizzy descending stairs which pt reports as normal and she doesn't use stairs at home for that reason. Balance Picking up an Object (QC): 88 Special Test Comments Pt doesn't complete due to dizziness and safety concerns. Treatments Pt transfers from recliner to standing using FWW at [facility]-Mod I. Pt uses restroom before leaving room. Pt ambulates in hallway using FWW at Mod I. Pt completes gait and balance activities including walking over varying surface for at least 10', ambulating 1 set of stairs and ambulating in hallway. Pt not able to complete picking up object from floor due to safety concern/balance or car transfer due to not having car available so will be tested upon discharge tomorrow. Pt returns to room to rest in recliner and eat at end of tx with all needs met. Assessment Current Status: Good Progress Pt has gotten stronger and improved activity tolerance and balance during ARU stay. Pt still has some cognitive deficits and balance impairments that will continue to be present. PT Short Term Goals Short Term Goals Time Frame: August 14, 2016 Gait (FIM): 4 Distance (FIM): 3=150 ft Gait Assistive Device: FWW Wheelchair Distance: See PT goals PT Nuclear Power Plant Engineer Goals Skilled Nursing Goals PT Nuclear Power Plant Engineer Goals Time Frame: Aug 21, 2016 Transfers (B,C,W/C) (FIM): 6 Sit to Lying (QC): 6 Lying-Sitting on Side/Bed(QC): 6 Sit to Stand (QC): 6 Rollin Roll Left to Right (QC): 6 Chair/Wkj-ez-Hfvts Xfer(QC): 6 Car Transfer (QC): 5 Does the Patient Walk: Yes Gait (FIM): 6 Gait distance (FIM): 3=150 ft Walk 10 feet (QC): 6 Walk 10ft-Uneven Surface(QC): 6 Walk 50ft with 2 Turns (QC): 6 Walk 150 ft (QC): 6 Gait Assistive Device: FWW Does the Pt use WC or Scooter?: No Stairs (FIM): 2 # of Steps: 4 1 Step (curb) (QC): 4 4 Steps (QC): 4 12 Steps (QC): 88 Picking up an Object (QC): 4 PT Plan Problem List Problem List: Activity Tolerance, Safety, Balance, Gait Treatment/Plan Treatment Plan: Continue Plan of Care Treatment Plan: Bed Mobility, Education, Functional Activity Indy, Functional Strength, Group Therapy, Gait, Safety, Therapeutic Exercise, Transfers Treatment Duration: Aug 21, 2016 Visits Per Week: 10-15 Minutes/Day (M-F): 60-90 Minutes/Day (Sat/Gray): prn Safety Risks/Education Patient Education: Gait Training, Transfer Techniques, Correct Positioning, Disease Process, Safety Issues Teaching Recipient: Patient Teaching Methods: Discussion Response to Teaching: Verbalize Understanding Time/GCodes Time In: 1000 Time Out: 1100 Total Billed Treatment visit, FA x2 (30m), GT x2 (30m) MARIANNE KNAPP MEDICAL TECH August 19, 2016 12:06
[2016-08-19] MEDS: MECLIZINE 25 MG (ANTIVERT) TAB PO PRN ×2 (12:28→21:28)
--- NOTE | 2016-08-19 12:43 | Occupational Ther Daily Note ---
OT Current Status-Daily Note Subjective Pt sitting in chair, agrees to treatment. Pt reports 6/10 right LE pain, states "I think it's that sciatica." Mental Status/Objective Functional [place] Measure 0=Not Assessed/NA 4=Minimal Assistance 1=Total Assistance 5=Supervision or Setup 2=Maximal Assistance 6=Modified [place] 3=Moderate Assistance 7=Complete [place] ADL-Treatment Pt agreeable to shower today. Sit to stand from chair with modified independence. Pt retrieved clothing from closet using FWW for balance. Gait to restroom with FWW, no LOB noted. Transfer to walk in shower with supervision using grab bars for safety. Pt able to wash/dry all areas after set up. Stood without LOB while washing buttocks and trevor area. Long handled sponge used to wash lower legs and feet. Pt donned bra and pullover shirt with modified independence. Pt uses metal fabricator to start underwear and pants over feet. Stood with good balance while completing pant hike. Assist is required to don knee high JAMES hose. Pt donned socks with set up using sock aid. Pt demonstrated ability to transfer to [facility] over toilet with modified independence using FWW. Pt able to complete toileting hygiene and clothing management with modified independence.Stood at sink to wash hands, brush teeth, and comb hair with modified independence. Functional [place] Measure 0=Not Assessed/NA 4=Minimal Assistance 1=Total Assistance 5=Supervision or Setup 2=Maximal Assistance 6=Modified [place] 3=Moderate Assistance 7=Complete IndependenceIRFPAI Quality Coding Scale 6 Independent with activity with or without an assistive device 5 Patient requires set up or clean up by helper. Patient completes activity by themselves 4 Supervision or touching assist (CGA). [place] provide cues , steadying assist 3 The helper provides less than half the effort to complete the activity 2 The helper provides more than half the effort to complete the activity 1 Dependent. The helper does all the effort to complete an activity 7 Patient refused to complete or attempt activity 9 The patient did not perform the activity before the current illness or injury 88 Not attempted due to Medical conditions or safety concerns Eating (FIM): 7 (Pt reports feeding self, cutting food, and managing containers without assistance.) Eating (QC): 6 Grooming (FIM): 6 Oral Hygiene (QC): 6 Bathing (FIM): 5 (set up) Shower/Bathe Self (QC): 5 Upper Body (FIM): 6 Upper Body Dressing (QC): 6 Lower Body Dressing (FIM): 5 (set up for JAMES hose) Lower Body Dressing (QC): 5 On/Off Footwear (QC): 5 Toileting (FIM): 6 Toileting Hygiene (QC): 6 Toilet/Commode Transfer (FIM): 6 Toilet Transfer (QC): 6 Shower Transfer(FIM): 5 Pt completed simple kitchen task of retrieving cup from counter and filling with ice and water. Education provided regarding safe kitchen practices. Pt states understanding. Reviewed safe tub transfers. Pt demonstrates carry over from previous session. Pt states she has a shower chair that hasn't been used for years and she can't remember exactly what it looks like. Education provided regarding different types of shower chairs if needed. Pt states she will only complete showers when someone is at the house with her to maximize safety. Plan is for pt to d/c home tomorrow. Pt states her daughter and sisters will be checking on her occasionally. Pt denies any further questions or concerns at this time. Pt sitting in chair with needs met after session. Education OT Patient Education: Safety issues Teaching Recipient: Patient Teaching Methods: Discussion Response to Teaching: Verbalize Understanding OT Short Term Goals Short Term Goals Time Frame: Aug 21, 2016 Bathing(FIM): 5 Upper Body Dressing(FIM): 5 Lower Body Dressing(FIM): 5 Toileting(FIM): 5 Toilet/Commode Transfer(FIM): 5 Shower Transfer(FIM): 5 Additional Short Term Goals: 1-Demonstrate ADL Tasks, 2-Verbalize Understanding , 3-ImproveStrength/Indy 1=Demonstrate adherence to instructed precautions during ADL tasks. 2=Patient will verbalize/demonstrate understanding of assistive devices/ modifications for ADL. 3=Patient will improve strength/tolerance for activity to enable patient to perform ADL's. OT Usp Goals Usp Goals Time Frame: Aug 28, 2016 Eating (FIM): 6 (met 08/19/16) Eating (QC): 6 (6-MET) Groomin (met 08/19/16) Oral Hygiene (QC): 6 (6-MET) Bathing(FIM): 5 (met 08/19/16) Shower/Bathe Self (QC): 5 (5-MET) Upper Body Dressing(FIM): 6 (met 08/19/16) Upper Body Dressing (QC): 6 (6-MET) Lower Body Dressing(FIM): 6 (not met(requires set up)) Lower Body Dressing (QC): 6 (5-NOT MET) On/Off Footwear (QC): 6 (5-NOT MET) Toileting(FIM): 6 (met 08/19/16) Toileting Hygiene (QC): 6 (6-MET) Toilet/Commode Transfer(FIM): 6 (met 08/19/16) Toilet/Commode Transfer (QC): 6 (6-MET) Shower Transfer(FIM): 5 (met 08/19/16) Additional Goals: 1-Demonstrate ADL Tasks, 2-Verbalize Understanding, 3- ImproveStrength/Indy 1=Demonstrate adherence to instructed precautions during ADL tasks. 2=Patient will verbalize/demonstrate understanding of assistive devices/ modifications for ADL. 3=Patient will improve strength/tolerance for activity to enable patient to perform ADL's. OT Education/Plan Discharge Recommendations Plan/Recommendations: Continue POC Treatment Plan/Plan of Care Patient would benefit from OT for education, treatment and training to promote independence in ADL's, mobility, safety and/or upper extremity function for ADL' s. Plan of Care: ADL Retraining, Functional Mobility, Group Exercise/Act as Ind, UE Funct Exercise/Act Treatment Duration: Aug 28, 2016 Visits Per Week: 10-12 Minutes/Day (M-F): 60-90 Minutes/Day (Sat/Gray): PRN Agreement: Yes Rehab Potential: Good Time/GCodes Start Time: 08:00 Stop Time: 09:30 Total Time Billed (hr/min): 90 Billed Treatment Time 1 visit, ADLx6(90minutes) REMY HURD OT August 19, 2016 12:43
--- NOTE | 2016-08-19 16:09 | Physical Therapy Daily Note ---
PT Daily Note-Current Subjective Pt is sitting in recliner upon arrival. Pt reports eating a little lunch and having BM since morning visit. Pt continues to experience nausea. Pt agrees to PT. Pain Numeric Pain Scale: 6 Location: Right Location Body Site: Hip Pain Description: Cramping Comment: Pt experiencing Sciatic pain from R hip through foot cory. in calf. Mental Status Patient Orientation: Person, Place, Situation Transfers Functional [place] Measure 0=Not Assessed/NA 4=Minimal Assistance 1=Total Assistance 5=Supervision or Setup 2=Maximal Assistance 6=Modified [place] 3=Moderate Assistance 7=Complete IndependenceIRFPAI Quality Coding Scale 6 Independent with activity with or without an assistive device 5 Patient requires set up or clean up by helper. Patient completes activity by themselves 4 Supervision or touching assist (CGA). [place] provide cues , steadying assist 3 The helper provides less than half the effort to complete the activity 2 The helper provides more than half the effort to complete the activity 1 Dependent. The helper does all the effort to complete an activity 7 Patient refused to complete or attempt activity 9 The patient did not perform the activity before the current illness or injury 88 Not attempted due to Medical conditions or safety concerns Scootin Sit to/from Stand: 6 Sit to Stand (QC): 6 Weight Bearing Weight Bearing Restriction: Full Weight Bearing Location Restriction: LE Bilateral Gait Training Does the Patient Walk?: Yes Distance (FIM): 3=150 ft Distance: 150' Walk 10 feet (QC): 6 Walk 50 ft with 2 Turns(QC): 6 Walk 150 ft (QC): 6 Gait Level of Assist: 6 Gait Persons Needed: 1 Gait Assistive Device: FWW Pt continues to take standing rest breaks during ambulation when fatigued. Wheelchair Training Does the Pt Use a Wheelchair?: No Exercises Seated Therapy Exercises: Ankle pumps, Long arc quads, Hip flexion, Kicking activity Seated Reps: 15 Treatments Pt transfers from sitting in recliner to standing using FWW at Mod I. Pt ambulates using FWW at Mod I before returning to room to rest in recliner and complete Seated Ex in recliner. Pt rests in recliner at end of tx with all needs met. Assessment Current Status: Good Progress Pt has gotten stronger, improved activity tolerance and balance. PT Short Term Goals Short Term Goals Time Frame: August 14, 2016 Gait (FIM): 4 Distance (FIM): 3=150 ft Gait Assistive Device: FWW Wheelchair Distance: See PT goals PT Long-Term Goals Long-Term Goals PT Warehouse And Receiving Supervisor Goals Time Frame: Aug 21, 2016 Transfers (B,C,W/C) (FIM): 6 Sit to Lying (QC): 6 Lying-Sitting on Side/Bed(QC): 6 Sit to Stand (QC): 6 Rollin Roll Left to Right (QC): 6 Chair/Tbg-lt-Wpqhi Xfer(QC): 6 Car Transfer (QC): 5 Does the Patient Walk: Yes Gait (FIM): 6 Gait distance (FIM): 3=150 ft Walk 10 feet (QC): 6 Walk 10ft-Uneven Surface(QC): 6 Walk 50ft with 2 Turns (QC): 6 Walk 150 ft (QC): 6 Gait Assistive Device: FWW Does the Pt use WC or Scooter?: No Stairs (FIM): 2 # of Steps: 4 1 Step (curb) (QC): 4 4 Steps (QC): 4 12 Steps (QC): 88 Picking up an Object (QC): 4 PT Plan Problem List Problem List: Activity Tolerance, Safety, Gait, Bed Mobility Treatment/Plan Treatment Plan: Continue Plan of Care Treatment Plan: Bed Mobility, Education, Functional Activity Indy, Functional Strength, Group Therapy, Gait, Safety, Therapeutic Exercise, Transfers Treatment Duration: Aug 21, 2016 Visits Per Week: 10-15 Minutes/Day (M-F): 60-90 Minutes/Day (Sat/Gray): prn Safety Risks/Education Patient Education: Gait Training, Transfer Techniques, Correct Positioning, Safety Issues Teaching Recipient: Patient Teaching Methods: Discussion Response to Teaching: Verbalize Understanding Time/GCodes Time In: 1330 Time Out: 1400 Total Billed Treatment Time: 30 Total Billed Treatment visit, EX (15m) & GT (15m) MARIANNE KNAPP PTA August 19, 2016 16:09
[2016-08-19 17:58] VITALS: BP 131/68
[2016-08-20 05:55] VITALS: BP 135/75
[2016-08-20] MEDS: ACETAMINOPHEN 500 MG TAB (TYLENOL) PO SCH (05:58)
[2016-08-20] MEDS: CATHETER FLUSH 10 ML SYR IV SCH (05:59)
[2016-08-20] MEDS: PANTOPRAZOLE 20 MG TABLET (PROTONIX) PO SCH (06:00)
[2016-08-20] MEDS: ASPIRIN E.C. 325 MG (ECOTRIN) TABLET PO SCH (09:34)
[2016-08-20] MEDS: GABAPENTIN 100 MG (NEURONTIN) CAP PO SCH (09:34)
[2016-08-20] MEDS: SENNA W/DOCUSATE (SENOKOT S) TABLET PO SCH (09:35)
[2016-08-20] MEDS: NYSTATIN CREAM (MYCOSTATIN) 30 GM TUBE TP SCH ×2 (09:35→13:21)
[2016-08-20] MEDS ORDERED: SENN-20 PO (10:26)
[2016-08-20] MEDS ORDERED: METO-270 PO (10:26)
[2016-08-20] MEDS ORDERED: ACET-77 PO (10:26)
[2016-08-20] MEDS ORDERED: ASPI325T32 PO (10:26)
--- NOTE | 2016-08-20 11:58 | Therapy Team Discharge Summary ---
Therapy Discharge Summary Discharge Recommendations Date of Discharge Therapy D/C Recommendations: Physical Therapy Home Care Physical Therapy Patient came to rehab following a right hip intertrochanteric fx. Upon evaluation patient performed bed mobility with mod to max assist, transferred with min assist, ambulated 149-50' with a rolling walker with [place]/CGA, and was unable to perform stairs. Patient has been performing bed mobility and transfer training, balance and endurance training, functional strengthening, stair training, gait training, and education. Patient has made fair progress but has not met all of her bed mobility, transfer, and ambulation group home goals. Now, patient performs bed mobility with mod I to SBA but she needs min assist for supine <-> sit, transfers with mod I, ambulates 250' with a rolling walker with SBA, and can go up and down 4 steps using 2 handrails with SBA. Patient is being discharged from this facility today and will be discharged from PT at this time. PT Long-Term Goals Long-Term Goals PT Long-Term Goals Time Frame: Aug 21, 2016 Transfers (B,C,W/C) (FIM): 6 Roll Left to Right (QC): 6 Sit to Lying (QC): 6 Lying-Sitting on Side/Bed(QC): 6 Sit to Stand (QC): 6 Chair/Cpb-lr-Occfy Xfer(QC): 6 Car Transfer (QC): 5 Does the Patient Walk: Yes Gait (FIM): 6 Gait distance (FIM): 3=150 ft Walk 10 feet (QC): 6 Walk 10ft-Uneven Surface(QC): 6 Walk 50ft with 2 Turns (QC): 6 Walk 150 ft (QC): 6 Gait Assistive Device: FWW Does the Pt use WC or Scooter?: No Stairs (FIM): 2 # of Steps: 4 1 Step (curb) (QC): 4 4 Steps (QC): 4 12 Steps (QC): 88 Picking up an Object (QC): 4 OT Field Observer Goals Long-Term Goals Time Frame: Aug 28, 2016 Eating (FIM): 6 (met 08/19/16) Eating (QC): 6 (6-MET) Oral Hygiene (QC): 6 (6-MET) Grooming(FIM): 6 (met 08/19/16) Bathing(FIM): 5 (met 08/19/16) Shower/Bathe Self (QC): 5 (5-MET) Upper Body Dressing(FIM): 6 (met 08/19/16) Upper Body Dressing (QC): 6 (6-MET) Lower Body Dressing(FIM): 6 (not met(requires set up)) Lower Body Dressing (QC): 6 (5-NOT MET) On/Off Footwear (QC): 6 (5-NOT MET) Toileting(FIM): 6 (met 08/19/16) Toileting Hygiene (QC): 6 (6-MET) Toilet/Commode Transfer(FIM): 6 (met 08/19/16) Toilet/Commode Transfer (QC): 6 (6-MET) Shower Transfer(FIM): 5 (met 08/19/16) Additional Goals: 1-Demonstrate ADL Tasks, 2-Verbalize Understanding, 3- ImproveStrength/Indy 1=Demonstrate adherence to instructed precautions during ADL tasks. 2=Patient will verbalize/demonstrate understanding of assistive devices/ modifications for ADL. 3=Patient will improve strength/tolerance for activity to enable patient to perform ADL's. ARETHA CARRERA PT August 20, 2016 11:58
[2016-08-20 14:28] VITALS: BP 135/75
--- NOTE | 2016-08-20 15:51 | Therapy Team Discharge Summary ---
Therapy Discharge Summary Discharge Recommendations Date of Discharge August 20, 2016 at 14:00 Therapy D/C Recommendations: Physical Therapy Home Care Occupational Therapy Pt admitted to ARU following right hip fracture. On admission pt required max assist for LE dressing and toileting, mod assist for bathing, and min assist for transfers. Skilled OT intervention focused on ADL training, transfers, strengthening, safety education, and adaptive equipment instruction. Pt progressed with therapy and by discharge is completing grooming, UE dressing, toileting, and toilet transfer with modified independence; and bathing and LE dressing with set up. Pt met all goals except LE dressing as pt requires set up for JAMES hose. Pt discharging home this date. D/C ARU OT at this time. PT Military Science Teacher Goals Military Science Teacher Goals PT Care Home Goals Time Frame: Aug 21, 2016 Transfers (B,C,W/C) (FIM): 6 Roll Left to Right (QC): 6 Sit to Lying (QC): 6 Lying-Sitting on Side/Bed(QC): 6 Sit to Stand (QC): 6 Chair/Dxh-uu-Ouekh Xfer(QC): 6 Car Transfer (QC): 5 Does the Patient Walk: Yes Gait (FIM): 6 Gait distance (FIM): 3=150 ft Walk 10 feet (QC): 6 Walk 10ft-Uneven Surface(QC): 6 Walk 50ft with 2 Turns (QC): 6 Walk 150 ft (QC): 6 Gait Assistive Device: FWW Does the Pt use WC or Scooter?: No Stairs (FIM): 2 # of Steps: 4 1 Step (curb) (QC): 4 4 Steps (QC): 4 12 Steps (QC): 88 Picking up an Object (QC): 4 OT Military Science Teacher Goals Care Home Goals Time Frame: Aug 28, 2016 Eating (FIM): 6 (met 08/19/16) Eating (QC): 6 (6-MET) Oral Hygiene (QC): 6 (6-MET) Grooming(FIM): 6 (met 08/19/16) Bathing(FIM): 5 (met 08/19/16) Shower/Bathe Self (QC): 5 (5-MET) Upper Body Dressing(FIM): 6 (met 08/19/16) Upper Body Dressing (QC): 6 (6-MET) Lower Body Dressing(FIM): 6 (not met(requires set up)) Lower Body Dressing (QC): 6 (5-NOT MET) On/Off Footwear (QC): 6 (5-NOT MET) Toileting(FIM): 6 (met 08/19/16) Toileting Hygiene (QC): 6 (6-MET) Toilet/Commode Transfer(FIM): 6 (met 08/19/16) Toilet/Commode Transfer (QC): 6 (6-MET) Shower Transfer(FIM): 5 (met 08/19/16) Additional Goals: 1-Demonstrate ADL Tasks, 2-Verbalize Understanding, 3- ImproveStrength/Indy 1=Demonstrate adherence to instructed precautions during ADL tasks. 2=Patient will verbalize/demonstrate understanding of assistive devices/ modifications for ADL. 3=Patient will improve strength/tolerance for activity to enable patient to perform ADL's. REMY HURD OT August 20, 2016 15:51
--- NOTE | 2016-08-22 07:47 | PM & R (SOAP) Progress Note ---
Subjective Subjective/Events-last exam Late entry Patient discharged to home with family and [facility] 08/20/16.Has progressed well and reviewed therapy notes Objective Exam Last Set of Vital Signs Vital Signs Date Time Temp Pulse Resp B/P (MAP) Pulse Ox O2 Delivery O2 Flow Rate FiO2 08/20/16 14:28 64 20 135/75 98 08/20/16 05:55 97.5 Capillary Refill : Less Than 3 Seconds General: Alert, Oriented X3, Cooperative, No Acute Distress HEENT: Atraumatic, PERRLA, EOMI, Mucous Memb Moist/[place] Neck: Supple, No JVD Lungs: Clear to Auscultation Heart: Regular Rate, Normal S1, Normal S2 Abdomen: Normal Bowel Sounds, Soft, No Tenderness Extremities: No Clubbing, No Edema Skin: No Rashes, Other (dressing at right hip) Neuro: Other (weakness at affected leg proximally and generalized weakness otherwise) Assessment/Plan Assessment S/P hip frx repair Ortho 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 VÍCTOR RICHEY MD Aug 22, 2016 07:47
== END 2016-08-20 14:00 | disposition home health service (06) | DRG 561 ==
LOC: ENPENDDIS 08-20 13:00
PROVIDERS: ADMIT Physical Medicine & Rehabilitation; ATTEND Physical Medicine & Rehabilitation
DX: S72.141D Displaced intertrochanteric fracture of right femur, subsequent encounter for closed fracture with routine healing (principal); S06.9X9S Unspecified intracranial injury with loss of consciousness of unspecified duration, sequela; R42 Dizziness and giddiness; R27.0 Ataxia, unspecified; R51 Headache; R11.0 Nausea; G62.9 Polyneuropathy, unspecified; R00.2 Palpitations; D64.9 Anemia, unspecified; F41.1 Generalized anxiety disorder; R00.1 Bradycardia, unspecified; K21.9 Gastro-esophageal reflux disease without esophagitis; I10 Essential (primary) hypertension
CPT/HCPCS: 36415; 80053; 83735; 84443; 85025; 93005

== ENCOUNTER → 2016-11-03 | Outpatient (CLI) | payer MEDICARE ==
[~2016-11-03] MED LIST changes: +ACET-77 PO; +ASPI325T32 PO; +SENN-20 PO
--- NOTE | 2016-11-03 17:13 | Diagnostic Imaging Report ---
INDICATION: Lower extremity swelling. EXAM: Venous Doppler of the lower extremities. FINDINGS: Duplex ultrasound of the venous systems of the lower extremities was done with bates-scale, spectral waveform and color Doppler flow analysis. The veins are compressible and have normal spontaneous and augmented flow. There is a Steele's cyst in the left popliteal fossa measuring 5.6 x 1.2 x 3.0 cm. IMPRESSION: Steele's cyst in the left popliteal fossa. There is no sonographic evidence for deep vein thrombosis. Dictated by: Dictated on workstation # [id number]
== END ==
LOC: RAD 16:23
PROVIDERS: ATTEND Internal Medicine Cardiovascular Disease
DX: M71.22 Synovial cyst of popliteal space [Baker], left knee (principal); R22.43 Localized swelling, mass and lump, lower limb, bilateral; I10 Essential (primary) hypertension; I65.23 Occlusion and stenosis of bilateral carotid arteries; E66.8 Other obesity; R00.2 Palpitations
CPT/HCPCS: 93970

== ENCOUNTER → 2016-11-10 | Outpatient (CLI) | payer MEDICARE ==
[2016-11-10 17:21] LABS: ALANINE AMINOTRANSFERASE 14 U/L (0-55); ALBUMIN 3.9 GM/DL (3.2-4.5); ANION GAP 8 MMOL/L (5-14); ASPARTATE AMINO TRANSFERASE 17 U/L (5-34); BILIRUBIN,TOTAL 0.4 MG/DL (0.1-1.0); BLOOD UREA NITROGEN 16 MG/DL (7-18); BUN/CREATININE RATIO 18; CALCIUM 9.4 MG/DL (8.5-10.1); CARBON DIOXIDE 29 MMOL/L (21-32); CHLORIDE 98 MMOL/L (98-107); CREATININE SERUM 0.89 MG/DL (0.60-1.30); GFR ESTIMATED > 60; GLUCOSE 102 MG/DL (70-105); POTASSIUM 3.8 MMOL/L (3.6-5.0); SODIUM 135 MMOL/L (135-145); TOTAL PROTEIN 6.4 GM/DL (6.4-8.2)
== END ==
LOC: LAB 16:19
PROVIDERS: ATTEND Internal Medicine Cardiovascular Disease
DX: R60.9 Edema, unspecified (principal); I10 Essential (primary) hypertension; R00.2 Palpitations; I65.23 Occlusion and stenosis of bilateral carotid arteries; R51 Headache; E66.8 Other obesity
CPT/HCPCS: 36415; 80053

== ENCOUNTER → 2016-11-17 | Outpatient (CLI) | payer MEDICARE | LOC: CARD 12:44 | PROVIDERS: ATTEND Internal Medicine Cardiovascular Disease | DX: R60.9 Edema, unspecified (principal); I10 Essential (primary) hypertension; R00.2 Palpitations; I65.23 Occlusion and stenosis of bilateral carotid arteries; R51 Headache; E66.8 Other obesity | CPT/HCPCS: 93306 ==

== ENCOUNTER → 2016-11-30 | Outpatient (CLI) | payer MEDICARE ==
[~2016-11-30] MED LIST changes: +ACET-93 PO; +CEPH-507 PO; +DICL100G18 TOP; +FEN12TD TD; +FURO40TA4 PO; -METO-270 PO; +METO-387 PO; +SENN-1 PO
[2016-11-30 14:38] LABS: POTASSIUM 4.3 MMOL/L (3.6-5.0)
[2016-11-30 14:39] LABS: ALBUMIN 4.1 GM/DL (3.2-4.5); BILIRUBIN,DIRECT 0.2 MG/DL (0.0-0.3); BILIRUBIN,INDIRECT 0.4 MG/DL; BILIRUBIN,TOTAL 0.6 MG/DL (0.1-1.0); CALCIUM 9.7 MG/DL (8.5-10.1); CREATININE SERUM 1.1 MG/DL (0.60-1.30); TOTAL PROTEIN 7.1 GM/DL (6.4-8.2)
== END ==
LOC: LAB 11-25 15:25
PROVIDERS: ATTEND Physician Assistant
DX: E78.2 Mixed hyperlipidemia (principal); I10 Essential (primary) hypertension; I65.23 Occlusion and stenosis of bilateral carotid arteries; E66.8 Other obesity; R00.2 Palpitations
CPT/HCPCS: 36415; 80048; 80061; 80076

== ENCOUNTER 2017-02-25 14:28 | Outpatient (RCR) | payer MEDICARE | END 2017-05-26 | disposition home or self-care (01) | LOC: CARD 14:28 | PROVIDERS: ATTEND Physician Assistant | DX: I10 Essential (primary) hypertension (principal); I65.23 Occlusion and stenosis of bilateral carotid arteries; R00.2 Palpitations; E66.8 Other obesity | CPT/HCPCS: 93225; 93226 ==

== ENCOUNTER → 2017-12-04 | Outpatient (CLI) | payer MEDICARE ==
[~2017-12-04] MED LIST changes: -SENN-1 PO; +SENN-145 PO
[2017-12-04 16:04] LABS: ALBUMIN 4.1 GM/DL (3.2-4.5); BILIRUBIN,TOTAL 0.8 MG/DL (0.1-1.0); CALCIUM 9.7 MG/DL (8.5-10.1); CREATININE SERUM 1.1 MG/DL (0.60-1.30); POTASSIUM 4.3 MMOL/L (3.6-5.0); TOTAL PROTEIN 6.9 GM/DL (6.4-8.2)
== END ==
LOC: LAB 15:25
PROVIDERS: ATTEND Physician Assistant
DX: I10 Essential (primary) hypertension (principal); E78.2 Mixed hyperlipidemia
CPT/HCPCS: 36415; 80053; 80061

== ENCOUNTER → 2018-01-05 | Outpatient (CLI) | payer MEDICARE ==
--- NOTE | 2018-01-05 18:46 | Diagnostic Imaging Report ---
INDICATION: Routine screening. COMPARISON: Comparison is made with prior mammograms from 01/18/2016 and 01/18/2014. TECHNIQUE: 2D and 3D bilateral screening mammography was performed with computer-aided detection (CAD) system. FINDINGS: Scattered fibroglandular densities are identified bilaterally. The parenchymal pattern is stable. Linear metallic density in the left breast is again noted. No dominant mass or malignant appearing microcalcifications are seen. The axillae are unremarkable. IMPRESSION: No mammographic features suspicious for malignancy are identified. ACR BI-RADS Category 2: Benign findings. Result letter will be mailed to the patient. Note: At least 10% of breast cancer is not imaged by mammography. Dictated by: Dictated on workstation # [id number]
== END ==
LOC: RAD 12:54
PROVIDERS: ATTEND Family Medicine
DX: Z12.31 Encounter for screening mammogram for malignant neoplasm of breast (principal)
CPT/HCPCS: 77067

== ENCOUNTER → 2018-08-24 | Outpatient (CLI) | payer MEDICARE ==
[~2018-08-24] MED LIST changes: +OCUVITE SOFTGE1 EACH PO; -VIT1CAPS9 PO
--- NOTE | 2018-08-24 12:04 | Diagnostic Imaging Report ---
EXAMINATION: Ultrasound right upper extremity nonvascular. INDICATION: Right shoulder nodule There are no prior studies available for comparison. Reportedly the patient's a palpable abnormality in the right shoulder. The ultrasound examination of this area shows a fairly well circumscribed 1.8 x 1.7 x 2.0 CM avascular hypoechoic lesion with a few internal echoes and a septation. This finding has appearance of a slightly complicated cyst. This is of uncertain etiology but could represent a ganglion cyst. If further imaging is desired, then MRI would be recommended. IMPRESSION: There is a slightly complicated cystic mass in the area of the patient's palpable abnormality. This of uncertain etiology although most likely a benign process. Recommendations as above. Dictated by: Dictated on workstation # [id number]
== END ==
LOC: RAD 09:39
PROVIDERS: ATTEND Family Medicine
DX: R22.31 Localized swelling, mass and lump, right upper limb (principal)
CPT/HCPCS: 76881

== ENCOUNTER → 2018-09-15 | Outpatient (CLI) | payer MEDICARE ==
--- NOTE | 2018-09-15 14:35 | Diagnostic Imaging Report ---
EXAMINATION: Magnetic resonance imaging of the right shoulder without contrast. DATE: September 15, 2018. COMPARISON: None. HISTORY: 82-year-old female, mass at the level of the superior aspect of the shoulder. TECHNIQUE: Magnetic Resonance Imaging sequences were performed of the shoulder without contrast. FINDINGS: ROTATOR CUFF, LIGAMENTS, TENDONS, AND MUSCLES: There is a full width, full thickness tear of the supraspinatus tendon. There is retraction of articular sided tendon fibers of supraspinatus between the level of the superior humeral head and glenoid measuring up to 3.4 cm measured on coronal T2 fat saturation sequence image 13. Bursal sided tendon fibers of supraspinatus are retracted by approximately 1.7 cm measured on coronal T2 fat saturation sequence image 14. There is infraspinatus tendinopathy. The teres minor tendon is intact. There is subscapularis tendinopathy. There is normal rotator cuff muscle bulk and signal. LONG HEAD OF BICEPS: The biceps labral attachment and long head of the biceps tendon is intact. The long head of the biceps tendon is normally positioned within the bicipital groove. GLENOHUMERAL JOINT: The humeral head is well positioned relative to the glenoid. The labrum is grossly intact. There is no identified paralabral cyst. The articular cartilage is grossly intact. There is a trace to small glenohumeral joint effusion with fluid in the subscapularis recess. ACROMIOCLAVICULAR JOINT: The acromioclavicular joint is normally aligned. The coracoclavicular and coracoacromial ligaments are intact. There are severe acromioclavicular degenerative changes with osteophytes extending approximately 5 mm below the joint margin. BONE: There is no os acromiale. There is degenerative related marrow edema adjacent to the acromioclavicular joint. There is no acute fracture, bone contusion, or evidence of osteonecrosis. BURSAE AND SOFT TISSUES: There is fluid in the subacromial subdeltoid bursa. There is no large acromioclavicular joint effusion. There is a fluid attenuation mass superior to the acromioclavicular joint likely relating to a geyser relating to abnormal communication of fluid from the subacromial subdeltoid bursa through the acromioclavicular joint into the mass measuring 2.5 x 1.9 x 3.2 cm in size. There is extravasation of fluid from the mass likely relating to rupture of the geyser. IMPRESSION: 1. [place] above the level of the acromioclavicular joint relating to abnormal extension of subacromial subdeltoid bursal fluid through the acromioclavicular joint with partial rupture of the geyser. 2. Full-thickness fullwidth tear of the supraspinatus tendon with maximum tendon retraction between the level of the superior humeral head and glenoid. No fatty muscle atrophy. Infraspinatus and subscapularis tendinopathy. 3. Severe acromioclavicular degenerative changes with 5 mm undersurface osteophytes. 4. Trace to small glenohumeral joint effusion. Grossly intact labrum. 5. No acute fracture, bone contusion, or evidence of osteonecrosis. Dictated by: Dictated on workstation # [id number]
== END ==
LOC: RAD 12:57
PROVIDERS: ATTEND Surgery
DX: M75.101 Unspecified rotator cuff tear or rupture of right shoulder, not specified as traumatic (principal); M19.011 Primary osteoarthritis, right shoulder
CPT/HCPCS: 73221

== ENCOUNTER → 2018-12-08 | Outpatient (CLI) | payer MEDICARE ==
[~2018-12-08] MED LIST changes: -CYAN500T2 PO; +CYAN500T62 PO
[2018-12-08 13:38] LABS: BASOPHILS % (AUTO) 0 % (0-10); EOSINOPHILS # (AUTO) 0.2 10^3/uL (0.0-0.3); EOSINOPHILS % (AUTO) 3 % (0-10); HEMATOCRIT 40 % (35-52); HEMOGLOBIN 12.8 G/DL (11.5-16.0); LYMPHOCYTES # (AUTO) 1.6 X 10^3 (1.0-4.0); LYMPHOCYTES % (AUTO) 29 % (12-44); MEAN CORPUSCULAR HEMOGLOBIN 30 PG (25-34); MEAN CORPUSCULAR HGB CONC 32 G/DL (32-36); MEAN CORPUSCULAR VOLUME 94 FL (80-99); MEAN PLATELET VOLUME 9.9 FL (7.4-10.4); MONOCYTES # (AUTO) 0.4 X 10^3 (0.0-1.0); MONOCYTES % (AUTO) 8 % (0-12); NEUTROPHILS # (AUTO) 3.3 X 10^3 (1.8-7.8); NEUTROPHILS % (AUTO) 59 % (42-75); PLATELET COUNT 211 10^3/uL (130-400); WHITE BLOOD COUNT 5.5 10^3/uL (4.3-11.0)
[2018-12-08 13:57] LABS: ALBUMIN 4.1 GM/DL (3.2-4.5); BILIRUBIN,TOTAL 0.5 MG/DL (0.1-1.0); CALCIUM 9.3 MG/DL (8.5-10.1); CREATININE SERUM 1.23 MG/DL (0.60-1.30); POTASSIUM 4.1 MMOL/L (3.6-5.0); TOTAL PROTEIN 7.2 GM/DL (6.4-8.2)
== END ==
LOC: LAB 13:24
PROVIDERS: ATTEND Family Medicine
DX: I10 Essential (primary) hypertension (principal); Z79.899 Other long term (current) drug therapy
CPT/HCPCS: 36415; 80053; 80061; 84443; 85025

== ENCOUNTER → 2020-02-13 | Outpatient (CLI) | payer MEDICARE ==
[~2020-02-13] MED LIST changes: -ACET-77 PO; +ACET-78 PO; -METO-387 PO; +MTP25TSR PO
--- NOTE | 2020-02-13 14:00 | Diagnostic Imaging Report ---
EXAMINATION: Bilateral mammograms. INDICATION: Screening. COMPARISON: 01/05/2018, 01/18/2016, and 01/18/2014. TECHNIQUE: Screening digital mammography was performed bilaterally with a Computer Aided Detection (CAD) system. FINDINGS: There are scattered fibroglandular densities bilaterally. There are a few benign type calcifications. There is no dominant mass, spiculated lesion, or suspicious calcification identified. The skin, nipples, and axillae are unremarkable. IMPRESSION: Benign findings as above. ACR BI-RADS Category 2: Benign findings. Result letter will be mailed to the patient. Note: At least 10% of breast cancer is not imaged by mammography. Dictated by: Dictated on workstation # [id number]
== END ==
LOC: RAD 10:34
PROVIDERS: ATTEND Nurse Practitioner Family
DX: Z12.31 Encounter for screening mammogram for malignant neoplasm of breast (principal)
CPT/HCPCS: 77063; 77067

== ENCOUNTER 2022-12-02 15:47 | Emergency (ER) | payer MEDICARE ==
[~2022-12-02] VITALS: Ht 162 cm; Wt 93.8 kg
[~2022-12-02 15:47] MED LIST changes: -CYAN500T62 PO; +CYAN500T8 PO
[2022-12-02] MEDS ORDERED: LIDOCAINE 1% INJ 10 ML VIAL ONE (16:02)
--- NOTE | 2022-12-02 16:02 | ED General ---
General Chief Complaint: Bite-Animal/Human/Insect Stated Complaint: CAT BITE/SCRATCH LEFT LEG Nursing Triage Note: PT AMBULATORY TO ER. PT REPORTS STRAY CAT BIT AND SCRATCHED HER L LOWER LEG. ARRIVES WITH DRESSING IN PLACE. PT REPORTS RECENTLY HAD TAKEN THE CAT TO GET [facility]ED [facility] THE [facility]. Source of Information: Patient Exam Limitations: No Limitations History of Present Illness Date Seen by Provider: Dec 02, 2022 Time Seen by Provider: 15:55 Initial Comments Alert and oriented 87-year-old female presents to the emergency department with a cat bite/wound to her left lower extremity. It is bandaged with Xeroform and plain gauze. This is a cat that was originally a stray cat however she had taken him to get neutered 1 to 2 months ago and the cat has been coming inside. She was moving his food from the floor to a countertop so that the dog would not eat it when the cat apparently thought she was taking the food away and attacked her left alonzo. Cat has been vaccinated as it did recently have surgery. He is a now House cat In the home of the patient. This occurred immediately prior to arrival. Bleeding controlled. No other injury. Timing/Duration: 1/2 Hour Severity: Mild Associated Systoms: Denies Symptoms Allergies and Home Medications Allergies Coded Allergies: Penicillins (Verified Allergy, Unknown, 08/06/12) codeine (Unverified Allergy, Unknown, 12/16/11) Patient Home Medication List Home Medication List Reviewed: Yes Acetaminophen (Acetaminophen) 500 Mg Tablet, 500 MG PO BID, (Reported) Entered as Reported by: YESSENIA GRANADO on 01/27/17 1408 Calcium Carbonate/Vitamin D3 (Calcium 500 + D Tablet) 1 Each Tablet, 1 TAB PO DAILY, (Reported) Entered as Reported by: PARIS STOREY on 08/05/16 0916 Cephalexin (Keflex) 500 Mg Capsule, 500 MG PO TID Prescribed by: KRISTIN NAQVI on 01/30/17 0908 Clindamycin HCl (Clindamycin HCl) 300 Mg Capsule, 300 MG PO QID Prescribed by: Paris Haney on 12/02/22 1607 Cyanocobalamin (Vitamin B-12) (Vitamin B-12) 500 Mcg Tablet, 500 MCG PO DAILY, (Reported) Entered as Reported by: PARIS STOREY on 08/05/16 0916 Diclofenac Sodium (Voltaren) 100 Gm Gel..gram., 4 GM TOP QID Prescribed by: KRISTIN NAQVI on 01/30/17 09 Dimenhydrinate (Dramamine) 50 Mg Tablet, 50 MG PO BID PRN for DIZZINESS, (Reported) Entered as Reported by: PARIS STOREY on 08/05/16 09 Fentanyl (Duragesic Patch 12MCG) 12 Mcg Patch, 12 MCG TD Q72H Prescribed by: KRISTIN NAQVI on 01/30/17 09 Furosemide (Furosemide) 40 Mg Tablet, 40 MG PO DAILY, (Reported) Entered as Reported by: PARIS STOREY on 01/27/17 125 Gabapentin (Gabapentin) 100 Mg Capsule, 200 MG PO BID, (Reported) Entered as Reported by: PARIS STOREY on 08/05/16 09 Metoprolol Succinate (Metoprolol Succinate) 25 Mg Tab.er.24h, 25 MG PO DAILY, (Reported) Entered as Reported by: PARIS STOREY on 01/27/17 125 [place] 3 Polyunsat Fatty Acids (Fish Oil 1,000 mg Capsule) 1,000 Mg Cap, 1,000 MG PO TID, (Reported) Entered as Reported by: PARIS STOREY on 08/05/16 09 Sennosides/Docusate Sodium (Senna S Tablet) 1 Each Tablet, 1 TAB PO HS, (Reported) Entered as Reported by: YESSENIA GRANADO on 01/27/17 1408 Vit C/Vit E/Lutein/Min/[place]-3 (Ocuvite Softgel) 1 Each Capsule, 1 CAP PO DAILY, (Reported) Entered as Reported by: PARIS STOREY on 08/05/16 09 Vitamin B Complex (Vitamin B Complex) 1 Each Capsule, 1 CAP PO DAILY, (Reported) Entered as Reported by: PARIS STOREY on 08/05/16 09 Review of Systems Review of Systems Constitutional: no symptoms reported EENTM: no symptoms reported Respiratory: no symptoms reported Cardiovascular: no symptoms reported Gastrointestinal: no symptoms reported Genitourinary: no symptoms reported Musculoskeletal: no symptoms reported Skin: see HPI Psychiatric/Neurological: No Symptoms Reported Hematologic/Lymphatic: No Symptoms Reported Immunological/Allergic: no symptoms reported All Other Systems Reviewed Negative Unless Noted: Yes Past Bfbytkh-Giihos-Nyhxei Hx Patient Social History Tobacco Use?: No Substance use?: No Alcohol Use?: No Pt feels they are or have been: No Immunizations Up To Date Tetanus Booster (TDap): Unknown PED Vaccines UTD: No First/Initial COVID19 Vaccinat: RECEIVED, UNK WHEN Second COVID19 Vaccination [place]: RECEIVED Third COVID19 Vaccination Date: RECEIVED COVID19 Vaccine 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 states told her her brain is deteriorating ) Reproductive Disorders: No Sexually Transmitted Disease: No Genitourinary: Yes UTI-Chronic Gastrointestinal: Yes Diverticulosis Musculoskeletal: Yes (r hip/femur fx) Arthritis, Chronic Back Pain, Fractures Endocrine: No HEENT: Yes Cataract, Macular Degeneration Loss of Vision: Denies Hearing Impairment: Denies Cancer: No Psychosocial: No Integumentary: No Blood Disorders: No Adverse Reaction/Blood Tranf: No Family Medical History Alcoholism 19 FATHER Diabetes mellitus G8 BROTHER G8 SISTER FH: breast cancer G8 SISTER FH: diverticulitis 19 FATHER 19 MOTHER G8 SISTER FH: macular degeneration 19 FATHER 19 MOTHER G8 BROTHER G8 SISTER Glaucoma 19 FATHER Heart Disease, Cancer, Other Conditions/Hx Physical Exam Vital Signs Vital Signs - First Documented 12/02/22 15:52 Temp 36.7 Pulse 93 Resp 18 B/P (MAP) 144/62 (89) Pulse Ox 98 Capillary Refill : Height, Weight, BMI Height: 5'4.00" Weight: 236lbs. 2.8oz. 107.117730ic; 35.00 BMI Method:Stated General Appearance: No Apparent Distress, WD/WN Eyes: Bilateral Eye Normal Inspection HEENT: PERRL/EOMI Neck: Non Tender Respiratory: Normal Breath Sounds Cardiovascular: Regular Rate, Rhythm Gastrointestinal: Non Tender Back: Normal Inspection Extremity: Normal Range of Motion, Other (There is a roughly 5 cm laceration to the lower medial half of patient's left anterior alonzo into subcutaneous tissue. There is a 1 cm laceration just under the patella on the left alonzo. 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 This is roughly 7 to 8 cm long. He is into the deep tissue there is a flap at the medial end of this. This was closed with four 3.0 Prolene sutures for close approximation but loose closure secondary to animal bite status. 1 cm laceration just under the knee was closed with 1 suture Wound Length (cm): 8 Wound's Depth, Shape: into muscle, flap Wound Explored: clean Anesthesia: 1% Lidocaine Volume Anesthetic (ccs): 10 Wound Debrided: minimal Suture: Prolene Suture Size: 3-0 Number of Sutures: 5 Sterile Dressing Applied?: Yes Patient tolerated well. Bleeding controlled. Wound dressed. Instructions provided. Progress/Results/Core Measures Suspected Sepsis SIRS Temperature: Pulse: 93 Respiratory Rate: 18 Blood Pressure 144 /62 Mean: 89 Results/Orders My Orders Orders - PARIS HANEY DO Lidocaine 1% Inj 10 Ml (Xylocaine 1% Inj (12/02/22 16:02) Medications Given in ED Current Medications Medications Dose Ordered Sig/Cooper Route Start Time Stop Time Status Last Admin Dose Admin Lidocaine HCl 10 ml STK-MED ONCE .ROUTE 12/02/22 16:02 12/02/22 16:06 DC 12/02/22 16:22 10 ML Vital Signs/I&O 12/02/22 12/02/22 15:52 16:53 Temp 36.7 36.7 Pulse 93 93 Resp 18 18 B/P (MAP) 144/62 (89) 144/62 Pulse Ox 98 98 Capillary Refill : Blood Pressure Mean: 89 Progress Note : Time: 16:04 Progress Note .Patient has significant laceration to her anterior alonzo, smaller one just under the patella and some superficial scratches on the posterior calf. Bleeding is controlled. We will irrigate the larger wounds the deeper wounds copiously. Plan to close these with loose approximation as they are animal bites. Patient is penicillin allergic therefore placed on clindamycin advise very close follow- up with primary care, return as needed. Sutures need to come out in 7 days as he is or associate with animal bite. Cat has been vaccinated and is living in the home. Do not need to provide rabies prophylaxis at this time. Departure Impression Primary Impression: Cat bite Qualified Codes: W55.01XA - Bitten by cat, initial encounter Additional Impression: Laceration Disposition: HOME, SELF-CARE Condition: Improved Departure-Patient Inst. Referrals: KRISTIN NAQVI MD (PCP/Family) Primary Care Physician Patient Instructions: Laceration Repair, Wound Care, Laceration Repair With Stitches (DC), Animal Bites (DC) Add. Discharge Instructions: Clean wounds with mild soapy water twice daily. Monitor closely for any sign of infection as discussed. You may apply a thin layer of antibiotic ointment across the wounds and cover with a nonstick dressing. Return immediately for increased pain, redness, streaking, purulent drainage, fever, rash or generally not feeling well. Take all antibiotics as directed. Keep leg elevated when not ambulating. Have home health keep a close eye on the wounds. Sutures may come out in 7 to 10 days. You may return here to have that done, have your primary care do this, or home health however please ensure no infection and good closure prior to removing stitches. All discharge instructions reviewed with patient and/or family. Voiced understanding. Scripts Clindamycin HCl (Clindamycin HCl) 300 Mg Capsule 300 MG PO QID for 10 Days, #28 CAP Prov: PARIS HANEY DO 12/02/22 PARIS HANEY DO Dec 02, 2022 16:02
[2022-12-02] MEDS ORDERED: CLIN-144 PO (16:07)
[2022-12-02 16:53] VITALS: BP 144/62
== END 2022-12-02 16:54 | disposition home or self-care (01) ==
LOC: ER 15:47
DX: S81.812A Laceration without foreign body, left lower leg, initial encounter (principal); W55.01XA Bitten by cat, initial encounter
CPT/HCPCS: 99283; A6223

== ENCOUNTER 2023-02-23 23:42 | Emergency (ER) | payer MEDICARE ==
[~2023-02-23] VITALS: Ht 162 cm; Wt 94.0 kg
[~2023-02-23 23:42] MED LIST changes: +CLIN-144 PO
[2023-02-23 23:50] VITALS: BP 152/99
[2023-02-24 00:11] LABS: BASOPHILS % (AUTO) 0 % (0-10); EOSINOPHILS % (AUTO) 0 % (0-10); HEMATOCRIT 39 % (35-52); HEMOGLOBIN 12.5 g/dL (11.5-16.0); LYMPHOCYTES # (AUTO) 1.1 10^3/uL (1.0-4.0); LYMPHOCYTES % (AUTO) 9 % (12-44); MEAN CORPUSCULAR HEMOGLOBIN 31 pg (25-34); MEAN CORPUSCULAR HGB CONC 32 g/dL (32-36); MEAN CORPUSCULAR VOLUME 95 fL (80-99); MEAN PLATELET VOLUME 10.5 fL (9.0-12.2); MONOCYTES # (AUTO) 0.9 10^3/uL (0.0-1.0); MONOCYTES % (AUTO) 8 % (0-12); NEUTROPHILS # (AUTO) 9.1 10^3/uL (1.8-7.8); NEUTROPHILS % (AUTO) 80 % (42-75); PLATELET COUNT 247 10^3/uL (130-400); WHITE BLOOD COUNT 11.3 10^3/uL (4.3-11.0)
[2023-02-24] MEDS ORDERED: ONDANSETRON INJECTION 4 MG/2 ML (SDV) IVP ONE (00:15)
[2023-02-24] MEDS ORDERED: LIDOCAINE UROJET 2% GEL 10 ML PKG TOP ONE (00:15)
[2023-02-24] MEDS ORDERED: fentaNYL INJECTION 100 MCG/2 ML VIAL IVP ONE (00:15)
[2023-02-24] MEDS ORDERED: NS IV 500 ML 500 ML IV SCH (00:15)
--- NOTE | 2023-02-24 00:18 | ED Fall/Injury ---
General Chief Complaint: Hip/Pelvic Problems Stated Complaint: FALL,HIP FX Nursing Triage Note: PATIENT BROUGHT BY EMS WITH COMPLAINT OF LEFT HIP SHORTEN AND ROTATION. PATIENT STATES SICK X1 WEEK. STATES SHE BECAME DIZZY AND FELL. PATIENT STATES PAIN LOWER BACK INTO STOMACH. EMS STATES GAVE ZOFRAN 4MG PO Source: patient Exam Limitations: no limitations History of Present Illness Date Seen by Provider: Feb 24, 2023 Time Seen by Provider: 00:03 Initial Comments Patient is an 87-year-old female brought into the emergency department by EMS chief complaint left hip pain after a fall. Patient states that she was getting up from a chair, became dizzy and fell onto her left side. She states she did not hit her head or have loss of consciousness. She also has accompanying low back pain that seems to radiate into her stomach. 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 She is also chronically nauseated according to her granddaughter at the bedside, with whom she lives. Patient has been very nauseated, 4 mg ODT Zofran administered prior to arrival per EMS. She was given an additional 4 mg IV here. Denies any numbness, tingling or weakness lower extremities. Occurred: this evening Severity: severe Injuries/Pain Location: pelvis (left hip) Context: lightheaded (dizzy), lost balance Loss of Consciousness: no loss of consciousness Modifying Factors: Worse With Movement Associated Symptoms (Fall): Nausea/Vomiting Allergies and Home Medications Allergies Coded Allergies: Penicillins (Verified Allergy, Unknown, 08/06/12) codeine (Unverified Allergy, Unknown, 12/16/11) Patient Home Medication List Home Medication List Reviewed: Yes Acetaminophen (Acetaminophen) 500 Mg Tablet, 500 MG PO BID, (Reported) Entered as Reported by: YESSENIA GRANADO on 01/27/17 1408 Calcium Carbonate/Vitamin D3 (Calcium 500 + D Tablet) 1 Each Tablet, 1 TAB PO DAILY, (Reported) Entered as Reported by: PARIS STOREY on 08/05/16 0916 Cephalexin (Keflex) 500 Mg Capsule, 500 MG PO TID Prescribed by: KRISTIN NAQVI on 01/30/17 0908 Clindamycin HCl (Clindamycin HCl) 300 Mg Capsule, 300 MG PO QID Prescribed by: Paris Haney on 12/02/22 1607 Cyanocobalamin (Vitamin B-12) (Vitamin B-12) 500 Mcg Tablet, 500 MCG PO DAILY, (Reported) Entered as Reported by: PARIS STOREY on 08/05/16 0916 Diclofenac Sodium (Voltaren) 100 Gm Gel..gram., 4 GM TOP QID Prescribed by: KRISTIN NAQVI on 01/30/17 09 Dimenhydrinate (Dramamine) 50 Mg Tablet, 50 MG PO BID PRN for DIZZINESS, (Reported) Entered as Reported by: PARIS STOREY on 08/05/16 0918 Fentanyl (Duragesic Patch 12MCG) 12 Mcg Patch, 12 MCG TD Q72H Prescribed by: KRISTIN NAQVI on 01/30/17 09 Furosemide (Furosemide) 40 Mg Tablet, 40 MG PO DAILY, (Reported) Entered as Reported by: PARIS STOREY on 01/27/17 1259 Gabapentin (Gabapentin) 100 Mg Capsule, 200 MG PO BID, (Reported) Entered as Reported by: PARIS STOREY on 08/05/16 0912 Metoprolol Succinate (Metoprolol Succinate) 25 Mg Tab.er.24h, 25 MG PO DAILY, (Reported) Entered as Reported by: PARIS STOREY on 01/27/17 1259 Mcgrew 3 Polyunsat Fatty Acids (Fish Oil 1,000 mg Capsule) 1,000 Mg Cap, 1,000 MG PO TID, (Reported) Entered as Reported by: PARIS STOREY on 08/05/16 09 Sennosides/Docusate Sodium (Senna S Tablet) 1 Each Tablet, 1 TAB PO HS, (Reported) Entered as Reported by: YESSENIA GRANADO on 01/27/17 1408 Vit C/Vit E/Lutein/Min/Mcgrew-3 (Ocuvite Softgel) 1 Each Capsule, 1 CAP PO DAILY, (Reported) Entered as Reported by: PARIS STOREY on 08/05/16 09 Vitamin B Complex (Vitamin B Complex) 1 Each Capsule, 1 CAP PO DAILY, (Reported) Entered as Reported by: PARIS STOREY on 08/05/16 09 Review of Systems Review of Systems Constitutional: see HPI Gastrointestinal: nausea, vomiting Musculoskeletal: back pain (low back; left hip pain), joint pain Past Ddkdxmy-Ryfuje-Wpsqiz Hx Immunizations Up To Date Tetanus Booster (TDap): Unknown PED Vaccines UTD: No First/Initial COVID19 Vaccinat: RECEIVED, UNK WHEN Second COVID19 Vaccination [place]: RECEIVED Third COVID19 Vaccination Date: RECEIVED Seasonal Allergies Seasonal Allergies: Yes Past Medical History Surgery/Hospitalization HX: RT HIP SURGERY, HTN, TRAMATIC BRAIN INJURY AT AGE 5 Surgeries: Yes (RT HIP REPLACEMENT) Eye Surgery, Gallbladder, Hysterectomy, Orthopedic Respiratory: No Cardiac: Yes Atrial Fibrillation, Hypertension Neurological: Yes (braini magdalena as a kid. states told her her brain is deteriorating ) Reproductive Disorders: No Sexually Transmitted Disease: No Genitourinary: Yes UTI-Chronic Gastrointestinal: Yes Diverticulosis Musculoskeletal: Yes (r hip/femur fx) Arthritis, Chronic Back Pain, Fractures Endocrine: No HEENT: Yes Cataract, Macular Degeneration Loss of Vision: Denies Hearing Impairment: Denies Cancer: No Psychosocial: No Integumentary: No Blood Disorders: No Adverse Reaction/Blood Tranf: No Family Medical History Alcoholism 19 FATHER Diabetes mellitus G8 BROTHER G8 SISTER FH: breast cancer G8 SISTER FH: diverticulitis 19 FATHER 19 MOTHER G8 SISTER FH: macular degeneration 19 FATHER 19 MOTHER G8 BROTHER G8 SISTER Glaucoma 19 FATHER Heart Disease, Cancer, Other Conditions/Hx Physical Exam Vital Signs Vital Signs - First Documented 02/23/23 23:50 Temp 36.8 Pulse 90 Resp 20 B/P (MAP) 152/99 (116) Pulse Ox 100 O2 Delivery Room Air Capillary Refill : Less Than 3 Seconds Height, Weight, BMI Height: 5'4.00" Weight: 236lbs. 2.8oz. [id number]; 35.00 BMI Method:Stated General Appearance: WD/WN, mild distress, obese HEENT: PERRL/EOMI Neck: non-tender Cardiovascular: regular rate, rhythm Respiratory: lungs clear, normal breath sounds, no respiratory distress, no accessory muscle use Gastrointestinal: non tender, soft Extremities: no pedal edema, no calf tenderness, pelvis stable, other (tenderness to left lateral hip) Neurologic/Psychiatric: alert, normal mood/affect, oriented x 3 Skin: warm/dry, pallor Procedures/Interventions Suture Size: 3-0 Progress/Results/Core Measures Results/Orders Lab Results Laboratory Tests Test 02/23/23 23:57 02/24/23 00:04 02/24/23 01:20 Range/Units White Blood Count 11.3 H 4.3-11.0 10^3/uL Red Blood Count 4.05 3.80-5.11 10^6/uL Hemoglobin 12.5 11.5-16.0 g/dL Hematocrit 39 35-52 % Mean Corpuscular Volume 95 80-99 fL Mean Corpuscular Hemoglobin 31 25-34 pg Mean Corpuscular Hemoglobin Concent 32 32-36 g/dL Red Cell Distribution Width 13.2 10.0-14.5 % Platelet Count 247 130-400 10^3/uL Mean Platelet Volume 10.5 9.0-12.2 fL Immature Granulocyte % (Auto) 2 % Neutrophils (%) (Auto) 80 H 42-75 % Lymphocytes (%) (Auto) 9 L 12-44 % Monocytes (%) (Auto) 8 0-12 % Eosinophils (%) (Auto) 0 0-10 % Basophils (%) (Auto) 0 0-10 % Neutrophils # (Auto) 9.1 H 1.8-7.8 10^3/uL Lymphocytes # (Auto) 1.1 1.0-4.0 10^3/uL Monocytes # (Auto) 0.9 0.0-1.0 10^3/uL Eosinophils # (Auto) 0.0 0.0-0.3 10^3/uL Basophils # (Auto) 0.0 0.0-0.1 10^3/uL Immature Granulocyte # (Auto) 0.3 H 0.0-0.1 10^3/uL Sodium Level 138 135-145 MMOL/L Potassium Level 3.4 L 3.6-5.0 MMOL/L Chloride Level 103 98-107 MMOL/L Carbon Dioxide Level 21 21-32 MMOL/L Anion Gap 14 5-14 MMOL/L Blood Urea Nitrogen 20 H 7-18 MG/DL Creatinine 1.50 H 0.60-1.30 MG/DL Estimat Glomerular Filtration Rate 34 BUN/Creatinine Ratio 13 Glucose Level 167 H 70-105 MG/DL Calcium Level 9.4 8.5-10.1 MG/DL Corrected Calcium 9.6 8.5-10.1 MG/DL Total Bilirubin 0.4 0.1-1.0 MG/DL Aspartate Amino Transf (AST/SGOT) 18 5-34 U/L Alanine Aminotransferase (ALT/SGPT) 18 0-55 U/L Alkaline Phosphatase 67 40-136 U/L Total Protein 6.9 6.4-8.2 GM/DL Albumin 3.7 3.2-4.5 GM/DL SARS-CoV-2 RNA (RT-PCR) Not Detected Not Detecte Urine Color YELLOW Urine Clarity CLEAR Urine pH 5.0 5-9 Urine Specific [place] 1.015 L 1.016-1.022 Urine Protein NEGATIVE NEGATIVE Urine Glucose (UA) NEGATIVE NEGATIVE Urine Ketones NEGATIVE NEGATIVE Urine Nitrite NEGATIVE NEGATIVE Urine Bilirubin NEGATIVE NEGATIVE Urine Urobilinogen 0.2 < = 1.0 MG/DL Urine Leukocyte Esterase NEGATIVE NEGATIVE Urine RBC (Auto) NEGATIVE NEGATIVE Urine RBC NONE /HPF Urine WBC NONE /HPF Urine Squamous Epithelial Cells 0-2 /HPF Urine Crystals PRESENT H /LPF Urine Calcium Oxalate Crystals FEW H /LPF Urine Amorphous Sediment FEW ARIN URATES H /LPF Urine Bacteria NEGATIVE /HPF Urine Casts PRESENT /LPF Urine Hyaline Casts 0-2 H /LPF Urine Mucus NEGATIVE /LPF Urine Culture Indicated NO My Orders Orders - MYAH QUEVEDO MD Ed Iv/Invasive Line Start (02/24/23 00:01) Pelvis With Left Hip 2-3 Views (02/24/23 00:01) Cbc And Automated Diff (02/24/23 00:01) Comprehensive Metabolic Panel (02/24/23 00:01) Ua Culture If Indicated (02/24/23 00:01) Catheter(Urinary) Insert & Ass 03,15 (02/24/23 00:01) Covid 19 Inhouse Test (02/24/23 00:01) Lidocaine 2% (Urojet) (Lidocaine 2% (Uro (02/24/23 00:15) Chest 1 View, Ap/Pa Only (02/24/23 00:01) Fentanyl Injection (Fentanyl Injection (02/24/23 00:15) Ondansetron Injection (Ondansetron Inj (02/24/23 00:15) Ns Iv 500 Ml (Ns Iv 500 Ml) (02/24/23 00:15) Morphine Injection (Morphine Injection (02/24/23 00:45) Ct Lumbar Spine Wo (02/24/23 01:51) Protime With Inr (02/24/23 03:52) Partial Thromboplastin Time (02/24/23 03:52) Medications Given in ED Current Medications Medications Dose Ordered Sig/Cooper Route Start Time Stop Time Status Last Admin Dose Admin Fentanyl Citrate 25 mcg ONCE ONCE IVP 02/24/23 00:15 02/24/23 00:16 DC 02/24/23 00:12 25 MCG Morphine Sulfate 4 mg ONCE ONCE IVP 02/24/23 00:45 02/24/23 00:46 DC 02/24/23 00:46 4 MG Ondansetron HCl 4 mg ONCE ONCE IVP 02/24/23 00:15 02/24/23 00:16 DC 02/24/23 00:12 4 MG Vital Signs/I&O 02/23/23 23:50 Temp 36.8 Pulse 90 Resp 20 B/P (MAP) 152/99 (116) Pulse Ox 100 O2 Delivery Room Air Blood Pressure Mean: 116 Progress Progress Note #1: Time: 01:53 Progress Note X-rays of the pelvis and left hip independently reviewed and interpreted by me. No obvious fracture. On reexamination, the patient is not very tender to the left hip specifically. She is more tender now in her lumbar spine - L2,3 region. The emergency department nurse tech advised me that they were able to "frog-leg" the patient for x-rays and radiology and she had no problems with flexing her left hip and knee when Rogers catheter was placed. Remains neurovascularly intact with stable vital signs. We will send her back over at this time for CT lumbar spine to rule out compression fracture. Labs independently reviewed and interpreted by me - CBC, CMP, UA, Coags and covid - WNL (some chronic kidney disease - creat 1.5); covid neg. No urinary tract infection. CXR unremarkable. no fracture pelvis/left hip - Progress Note #2: Time: 03:51 Progress Note Call to [facility] Transfer [facility] - awaiting call back. CT lumbar spine per stat rad acute L1-L2 hyperextension injury with anterior inferior L1 fracture, ossified anterior longitudinal ligament fracture/tear and prevertebral/retroperitoneal blood and possibly right psoas hematoma. No orthospine or neuro spine services available at our hospital Progress Note #3: Time: 04:13 Progress Note Discussed with Dr Steele - [facility] (trauma so therefore will go ER to ER) Accepted for transfer - Per transfer center, they spoke with their Neurosurgeon who reviewed films and also agrees with transfer Diagnostic Imaging Diagonstic Imaging: Xray Comments Plain films of the left hip and pelvis independently reviewed and interpreted by me, no fracture, hip or pelvis Diagonstic Imaging: Xray Plain Films/CT/US/NM/MRI: chest Comments Single view chest x-ray independently reviewed and interpreted by me, no acute findings Diagonstic Imaging: CT Comments CT lumbar spine read by stat rad shows acute L1-L2 hyperextension injury with anterior inferior L1 fracture, ossified anterior longitudinal ligament fracture/tear and prevertebral/retroperitoneal blood and possibly right psoas hematoma Departure Impression Primary Impression: Fracture of lumbar spine Qualified Codes: S32.018A - Other fracture of first lumbar vertebra, initial encounter for closed fracture Disposition: XFER SHT-TRM HOSP Condition: Stable Transfer Transfer Reason: Exceeds level of care Time Spoke to Accepting Phy: 04:10 Transfer Progress Notes Discussed with Dr Steele ([facility]) Transfer Facility: [facility] Method of Transfer: EMS Departure-Patient Inst. Referrals: KRISTIN NAQVI MD (PCP/Family) Primary Care Physician Copy Copies To 1: KRISTIN NAQVI MD, KATHRYN M MD Feb 24, 2023 00:18
[2023-02-24 00:20] LABS: ALBUMIN 3.7 GM/DL (3.2-4.5); POTASSIUM 3.4 MMOL/L (3.6-5.0)
[2023-02-24 00:21] LABS: CALCIUM 9.4 MG/DL (8.5-10.1)
[2023-02-24 00:22] LABS: TOTAL PROTEIN 6.9 GM/DL (6.4-8.2)
[2023-02-24 00:24] LABS: BILIRUBIN,TOTAL 0.4 MG/DL (0.1-1.0)
[2023-02-24 00:26] LABS: CREATININE SERUM 1.5 MG/DL (0.60-1.30)
[2023-02-24] MEDS ORDERED: morphine INJ 4 MG/ML 1 ML (VIAL/SYRINGE) IVP ONE ×2 (00:45→04:45)
[2023-02-24 01:43] LABS: BACTERIA,URINE NEGATIVE /HPF; BILIRUBIN,URINE NEGATIVE (NEGATIVE); CALCIUM OXALATE CRYSTALS,UR FEW /LPF; CLARITY,URINE CLEAR; COLOR,URINE YELLOW; GLUCOSE, URINE (UA) NEGATIVE (NEGATIVE); KETONES,URINE NEGATIVE (NEGATIVE); LEUKOCYTE ESTERASE ,URINE NEGATIVE (NEGATIVE); NITRITE,URINE NEGATIVE (NEGATIVE); PROTEIN,URINE NEGATIVE (NEGATIVE); SQUAMOUS EPITHELIAL CELL,UR 0-2 /HPF
[2023-02-24 01:44] LABS: AMORPHOUS SEDIMENT,UR FEW AMOR URATES /LPF; HYALINE CASTS, URINE 0-2 /LPF
[2023-02-24 04:13] LABS: PROTHROMBIN TIME PATIENT 13.6 SEC (12.2-14.7)
--- NOTE | 2023-02-24 05:57 | Diagnostic Imaging Report ---
PROCEDURE: CT lumbar spine without contrast. TECHNIQUE: Multiple contiguous axial images were obtained through the lumbar spine without the use of intravenous contrast. Sagittal and coronal reformations were then performed. Auto Exposure Controls were utilized during the CT exam to meet ALARA standards for radiation dose reduction. INDICATION: 87-year-old female, status post fall with low back pain. CORRELATION STUDY: CT lumbar spine 01/28/2017 FINDINGS: Abnormal widening at the anterior L1-L2 disc space with fracture of the anterior inferior aspect of L1 vertebral body and fracture of an ossified anterior longitudinal ligament. The remainder of the lumbar spinal alignment is anatomic and otherwise intact. Mild depression superior L3 endplate, unchanged. Prominent bulky bridging osteophytes majority of the lumbar spine. Hypertrophic facet arthropathy. Various degrees of disc space narrowing. There is various degrees of high degree spinal canal and foraminal narrowing. Stenosis throughout the lower thoracic and lumbar spinal canal owing to the degenerative change. There is prominent prevertebral blood at the level of the fracture extending into the retroperitoneum. Right psoas muscle is also thickened suggesting probable hematoma. Sacrum intact. Internal fixation hardware of the proximal right femur partially visualized. IMPRESSION: 1. Acute hyperextension injury at L1-L2 with abnormal widening at the anterior disc space along with obliquely oriented fracture of the anterior inferior aspect of the right portion L1 vertebral body, fracture of the ossified anterior longitudinal ligament with associated paraspinal/retroperitoneal blood and likely right psoas hematoma. Initial report was provided by [facility]. Dictated by: Dictated on workstation # [id number]
--- NOTE | 2023-02-24 06:07 | Diagnostic Imaging Report ---
EXAMINATION: Chest 1 view HISTORY: Dizziness, fall. COMPARISON: 08/04/2022 FINDINGS: Heart size and pulmonary vasculature are normal. The lungs are clear without consolidation, pleural effusion, or pneumothorax. Degenerative changes of the thoracic spine. Osseous structures are otherwise intact. IMPRESSION: 1. No acute radiographic abnormality in the chest. Dictated by: Dictated on workstation # [id number]
--- NOTE | 2023-02-24 06:24 | Diagnostic Imaging Report ---
INDICATION: fall due to dizziness left hip pain TECHNIQUE: AP pelvis along with 2 views left hip CORRELATION STUDY: 08/04/2016 FINDINGS: The pelvis demonstrates no evidence for acute fracture. The pectineal lines and obturator rings are maintained. Pubic symphysis and SI joints are unremarkable. Postoperative right hip with internal fixation hardware. Left hip demonstrates a femoral head acetabular relationship maintained. Bony trabecular pattern intact. No acute fracture. IMPRESSION: Internal fixation of proximal right femur. Negative for acute fracture pelvis with attention left hip. Dictated by: Dictated on workstation # [id number]
== END 2023-02-24 05:05 | disposition short-term general hospital (02) ==
LOC: EDUNIT# 23:42 → ER 23:48
DX: S32.018A Other fracture of first lumbar vertebra, initial encounter for closed fracture (principal); M25.552 Pain in left hip; E66.9 Obesity, unspecified; Z68.35 Body mass index [BMI] 35.0-35.9, adult; Z88.5 Allergy status to narcotic agent; W07.XXXA Fall from chair, initial encounter
CPT/HCPCS: 36415; 71045; 72131; 80053; 81000; 85025; 85610; 85730; 87636; 96374; 96375; 96376